=== PATIENT | male | born 1945 | race Caucasian/White ===

== ENCOUNTER 2018-02-14 07:52 | Day surgery (SDC) | payer MEDICARE ==
[2018-02-14] VITALS (14 sets, daily range): BP systolic 105–161; BP diastolic 54–91
[~2018-02-14] VITALS: Ht 177.8 cm; Wt 112.2 kg
[~2018-02-14 07:52] MED LIST: AMLO10TA82 PO; AMLO5TAB2 PO; ASP81TEC PO; CHOL200035 PO; CITA40TA19 PO; DESI25TA13 PO; FINA5TAB6 PO; FLAX1CAP4 PO; FOLI0.4T2 PO; FOLIC ACID PO; GMFB600T PO; HUM100VI12 SQ; INSU100V13 SQ; ISM30TCR PO; LISI40TA PO; METO25TA PO; MULT1CAP27 PO; NIA500ERT PO; NPH,100V SQ; OMG1KC PO; PRAS10TA6 PO; ROSU10TA12 PO
--- OUTSIDE RECORDS SUMMARY | 2018-02-14 07:54 | XMS REPORT | Continuity of Care Document ---
Author Author [facility] Organization [facility] Address Unknown Phone Unavailable Allergies Active Description Code Type Severity Reaction Onset Reported/Identified Relationship to Patient Clinical Status Yes NO KNOWN DRUG ALLERGIES UNKNOWN NO KNOWN DRUG ALLERG Yes No Known Drug Allergies [id number] Drug Allergy Unknown N/A 04/02/2012 Medications There is no data. 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 04/12/2012 Ot 433.10 CAROTID ARTERY OCCLUSION W O CEREBRAL IN 04/12/2012 Ot 794.30 ABN CARDIOVASC STUDY NOS 04/12/2012 Ot V45.81 AORTOCORONARY BYPASS 04/12/2012 Ot V45.82 PERCUTANEOUS TRANSLUM CORON ANGIOPLASTY 04/12/2012 Ot V58.66 LONG-TERM ( CURRENT) USE OF ASPIRIN 04/12/2012 Ot V58.67 LONG-TERM ( CURRENT) USE OF INSULIN 04/12/2012 Ot V58.69 OTH MED,LT, CURRENT USE 09/18/2015 Ot 397.0 TRICUSPID VALVE DISEASE 09/18/2015 Ot 401.9 HYPERTENSION NOS 09/18/2015 Ot 414.00 CORON ATHEROSCLER NOS TYPE VESSEL, NATIV 09/18/2015 Ot 424.0 MITRAL VALVE DISORDER 09/18/2015 Ot 429.3 CARDIOMEGALY 09/18/2015 Ot 272.4 HYPERLIPIDEMIA NEC/NOS 09/18/2015 Ot 401.9 HYPERTENSION NOS 09/18/2015 Ot 414.00 CORON ATHEROSCLER NOS TYPE VESSEL, NATIV 09/18/2015 CHAD WHITE, BASHAR J Ot 278.00 OBESITY, NOS 09/18/2015 MIKE BONILLA MD Ot 397.0 TRICUSPID VALVE DISEASE 09/18/2015 MIKE BONILLA MD Ot 401.9 HYPERTENSION NOS 09/18/2015 MIKE BONILLA MD Ot 414.00 CORON ATHEROSCLER NOS TYPE VESSEL, NATIV 09/18/2015 MIKE BONILLA MD Ot 424.0 MITRAL VALVE DISORDER 09/18/2015 MIKE BONILLA MD Ot 272.4 HYPERLIPIDEMIA NEC/NOS 09/18/2015 MIKE BONILLA MD Ot 278.00 OBESITY, NOS 09/18/2015 MIKE BONILLA MD Ot 401.9 HYPERTENSION NOS 09/18/2015 MIKE BONILLA MD Ot 414.00 CORON ATHEROSCLER NOS TYPE VESSEL, NATIV 09/18/2015 MIKE BONILLA MD Ot 426.4 RT BUNDLE BRANCH BLOCK 09/18/2015 MIKE BONILLA MD Ot V85.37 BODY MASS INDEX 37.0-37.9, ADULT 09/21/2015 TONI GALLARDO Ot I25.10 ATHSCL HEART DISEASE OF [place] CORONARY 10/08/2015 TONI GALLARDO Ot I25.10 ATHSCL HEART DISEASE OF [place] CORONARY 06/28/2017 Hemanth Rojas 401.9 UNSPECIFIED ESSENTIAL HYPERTENSION 06/28/2017 Hemanth Rojas W I10 ESSENTIAL (PRIMARY) HYPERTENSION 06/28/2017 Hemanth Rojas W 401.9 UNSPECIFIED ESSENTIAL HYPERTENSION 06/28/2017 Hemanth Rojas W I10 ESSENTIAL (PRIMARY) HYPERTENSION 09/27/2017 Hemanth Rojas W 401.9 UNSPECIFIED ESSENTIAL HYPERTENSION 09/27/2017 Hemanth Rojas W I10 ESSENTIAL (PRIMARY) HYPERTENSION 09/27/2017 Hemanth Rojas W 401.9 UNSPECIFIED ESSENTIAL HYPERTENSION 09/27/2017 Hemanth Rojas W I10 ESSENTIAL (PRIMARY) HYPERTENSION 09/27/2017 Hemanth Rojas W 401.9 UNSPECIFIED ESSENTIAL HYPERTENSION 09/27/2017 Hemanth Rojas W I10 ESSENTIAL (PRIMARY) HYPERTENSION 09/27/2017 Hemanth Rojas W 401.9 UNSPECIFIED ESSENTIAL HYPERTENSION 09/27/2017 Hemanth Rojas W I10 ESSENTIAL (PRIMARY) HYPERTENSION Procedures There is no data. Results Test Result Range Hemoglobin A1C - 07/06/16 10:01 % A1C 7.80 % 5.40-6.60 AvGlu 202 mg/dL 70-110 Urinalysis - 06/28/17 10:32 Icotest N/A Negative Urine Volume Urine Volume Sufficient (10mL) Urine Yeast No Yeast present Urine-Appearance Clear Clear Urine-Bacteria Negative Urine-Bilirubin Negative Negative Urine-Blood Negative Negative Urine-Color Yellow Colorless-Lt. Yellow Urine-Epithelial Cells 0-5/HPF Urine-Glucose Negative Negative Urine-Ketones Negative Negative Urine-Leukocytes Negative Negative Urine-Mucus 1+ Urine-Nitrite Negative Negative Urine-Other Urine Saved if Culture Needed (48hrs from time of collection) Urine-pH 6.0 5-8.5 Urine-Protein 1+ Negative Urine-RBC Negative Urine-Specific [place] >=1.030 1.000-1.030 Urine-WBC Nothing Seen on Microscopic Urobilinogen 0.2 E.U./dL 0.2-1.0 Lipid Panel - 09/27/17 13:26 C/HDL 4.2 3.7-6.7 Cholesterol 151 mg/dL 100-240 HDL 36 mg/dL 30-85 LDL-Calculated 84 mg/dL 0-100 Trig 153 mg/dL 35-160 VLDL 31 mg/dL 0-42 Encounters ACCT No. Visit Date/Time Discharge Status Pt. Type Provider Facility Loc./Unit Complaint [id number] 09/18/2015 10:42:00 09/18/2015 23:59:59 CLS Outpatient TONI GALLARDO [facility] CARD [id number] 12/09/2013 07:41:00 12/09/2013 23:59:59 CLS Outpatient MIKE BONILLA MD [facility] CARD [id number] 11/27/2013 08:46:00 11/27/2013 23:59:59 CLS Outpatient MIKE BONILLA MD [facility] CARD [id number] 02/14/2018 07:52:00 ACT Outpatient MIKE BONILLA MD [facility] CATH CP,CAD,SOB [id number] 04/11/2012 07:14:00 Document Registration [id number] 04/02/2012 08:03:00 Document Registration [id number] 09/02/2011 09:04:00 Document Registration [id number] 09/27/2017 13:21:00 09/27/2017 23:59:00 DIS Outpatient Hemanth Rojas [id number] 06/28/2017 10:29:00 06/28/2017 23:59:00 DIS Hemanth Hubbard [id number] 07/06/2016 09:41:00 07/06/2016 23:59:00 DIS Hemanth Hubbard [id number] 06/29/2016 00:00:00 06/29/2016 23:59:00 DIS Hemanth Hubbard [id number] 06/23/2016 10:52:00 06/23/2016 23:59:00 RANDI Outpatient Hemanth Rojas
[2018-02-14] MEDS ORDERED: LIDOCAINE 1% INJ 20 ML 20 ML VIAL ONE (07:59)
[2018-02-14] MEDS ORDERED: NS IV 1000 ML 3,000 ML ONE (07:59)
[2018-02-14] MEDS ORDERED: HEParin 1000 UNIT/ML (10ML VIAL) FOR BOLUS ONE (08:03)
[2018-02-14] MEDS ORDERED: NS IV 1000 ML 1,000 ML IV SCH (08:05)
--- NOTE | 2018-02-14 08:27 | Diagnostic Imaging Report ---
INDICATION: Preop for heart catheterization. Patient has a history of CABG. Time of exam 8:15 AM Correlation is made with prior study from 04/11/2012. The heart is enlarged but stable. There are changes of median sternotomy and CABG. The lungs are clear. No infiltrate or failure is detected. No effusion or pneumothorax is detected. IMPRESSION: Status post CABG. No acute cardiopulmonary process is detected. Dictated by: Dictated on workstation # [id number]
[2018-02-14 08:28] LABS: HEMOGLOBIN 14.9 G/DL (13.3-17.7); MEAN PLATELET VOLUME 10.7 FL (7.4-10.4); RED BLOOD COUNT 4.88 10^6/uL (4.35-5.85); RED CELL DISTRIBUTION WIDTH 13.8 % (10.0-14.5); WHITE BLOOD COUNT 12.3 10^3/uL (4.3-11.0)
[2018-02-14] MEDS ORDERED: ASPI-586 PO (08:47)
[2018-02-14] MEDS ORDERED: CHOL5000 PO (08:48)
[2018-02-14] MEDS ORDERED: CITA20TA9 PO (08:49)
[2018-02-14] MEDS ORDERED: FLAX100032 PO ×2 (08:50→08:54)
[2018-02-14 08:53] LABS: ALANINE AMINOTRANSFERASE 15 U/L (0-55); ALKALINE PHOSPHATASE 103 U/L (40-136); BILIRUBIN,TOTAL 0.5 MG/DL (0.1-1.0); BUN/CREATININE RATIO 21; CALCIUM 9.6 MG/DL (8.5-10.1); CARBON DIOXIDE 25 MMOL/L (21-32); CHLORIDE 103 MMOL/L (98-107); CHOLESTEROL 153 MG/DL (< 200); CREATININE SERUM 1.17 MG/DL (0.60-1.30); GFR ESTIMATED > 60; GLUCOSE 126 MG/DL (70-105); HDL CHOLESTEROL 32 MG/DL (40-60); POTASSIUM 4.6 MMOL/L (3.6-5.0); SODIUM 140 MMOL/L (135-145); TOTAL PROTEIN 7.9 GM/DL (6.4-8.2); TRIGLYCERIDES 140 MG/DL (<150); VLDL CHOLESTEROL 28 MG/DL (5-40)
[2018-02-14] MEDS ORDERED: FOLI0.4T2 PO ×2 (08:55)
[2018-02-14] MEDS ORDERED: CINN500C2 PO (08:57)
[2018-02-14] MEDS ORDERED: METO-333 PO (08:58)
[2018-02-14 08:59] LABS: INR 1.1 (0.8-1.4); PROTHROMBIN TIME PATIENT 14.1 SEC (12.2-14.7)
--- NOTE | 2018-02-14 09:11 | Cardiac Procedure Note-CS/ASA ---
Pre-Procedure Note Pre-Op Procedure Note H&P Reviewed The H&P was reviewed, patient examined and no changes noted. Date H&P Reviewed: Feb 14, 2018 Time H&P Reviewed: 09:11 Conscious Sedation Pre-Proced Time Reviewed: 09:11 ASA Class: 3 Airway Mallampati Classification: ([place] appropriate class) I. II. III, IV Lungs Heart ASA score ASA 1: a normal healthy patient ASA 2: a patient with a mild systemic disease (mid diabetes, controlled hypertension, obesity x ASA 3: a patient with a severe systemic disease that limits activity (angina , COPD, prior Myocardial infarction) ASA 4: a patient with an incapacitating disease that is a constant threat to life (CHF, renal failure) ASA 5: a moribund patient not expected to survive 24 hrs. (ruptured aneurysm) ASA 6: a declared brain patient whose organs are being harvested. For emergent operations, add the letter E after the classification Grade 3 Sedation Plan: Analgesia, Amnesia, Plan communicated to team members, Discussed options with patient/fam, Discussed risks with patient/fam Note The patient is an appropriate candidate to undergo the planned procedure, sedation, and anesthesia. The patient immediately re-assessed prior to indication. MIKE BONILLA MD Feb 14, 2018 09:11
[2018-02-14] MEDS ORDERED: fentaNYL INJECTION 100 MCG/2 ML AMP ONE (09:17)
[2018-02-14] MEDS ORDERED: MIDAZOLAM 5 MG/5 ML (VERSED) VIAL ONE (09:17)
[2018-02-14] MEDS ORDERED: NITRO DRIP 25000 MCG/D5W 250 ML IV ONE (09:44)
[2018-02-14] MEDS ORDERED: EPTIFIBATIDE BOLUS 0 ML IV ONE (09:44)
[2018-02-14] MEDS ORDERED: ASPIRIN 325 MG (5 GR) TABLET ONE (10:14)
[2018-02-14] MEDS ORDERED: CLOPIDOGREL 300 MG (PLAVIX) TABLET PO ONE (10:14)
[2018-02-14] MEDS ORDERED: PATIENT MAY USE OWN MEDS, ALL PO SCH (10:15)
--- NOTE | 2018-02-14 10:21 | Cardiac Cath Report ---
Cardiac Cath Report Physician (s)/Plastic Press Molder (s) Physician MIKE BONILLA MD Pre-Procedure Diagnosis Pre-Procedure Diagnosis: Coronary artery disease Post-Procedure Note Procedure Start Date: Feb 14, 2018 Name of Procedure: Left heart catheterization, vein graft angiogram Left ventriculogram Stent to the LAD Findings/Procedure Note PROCEDURE NOTE: After explaining the procedure to the patient, all pros and cons were explained , all questions were answered. The patient signed the consent and then he was placed on the cardiac catheterization laboratory. Groin was prepped SL fashion local anesthesia was used. Sheath placed in the right femoral artery. Gisel right and left catheter were used to access the coronary system and the vein graft. Pigtail was used to access the left ventricular cavity. Left ventriculogram was done Patient was given 6000 units of heparin, I tried with DL guide without success been used FL 4.0 guide advanced the left coronary system, BMW wire was parked in the distal LAD, patient had severe in-stent restenosis, predilatation with balloon with multiple balloons using 3.015 mm then I proceeded with deployment of Xience Luci 2.7515 millimeter postdilated with NC Quantum 3.020 mm up to 3.15 mm with excellent results. At the end of the procedure the sheath was removed. Closure device was used FINDINGS: Hemodynamics LV 148/22, end-diastolic pressure of 22 Aorta 122/63 mean of 84 ANATOMY: Left Main has moderate disease Left Anterior Descending has severe in-stent restenosis, successful balloon angioplasty then deployment of a stent inside the previous stent due to the recurrent recoiling after the balloon angioplasty, I used Xience Luci 2.7520 mm expanded to 3.15 mm inside the old stent with excellent results, moderate disease distally Left Circumflex is moderate in size with mild disease nonobstructive disease Right Coronory Artery is occluded and the vein graft to the right coronary artery is occluded getting collaterals from the left system Patient is known to have occluded OKEEFE and vein graft to the marginal LV Gram was done in the right anterior oblique position left buttock is normal in size with normal contraction. Estimated ejection fraction 60 percent CONCLUSION: 1. Severe in-stent restenosis in the mid LAD, significant recoiling after balloon angioplasty, successful deployment of a new stent of Luci 2.7515 mm expanded to 3.15 mm with excellent results 2. Mild to moderate disease in the circumflex artery 3. Occluded right coronary artery and the vein graft to the right coronary artery receiving collaterals from the left system 4. Normal left ventricle size and systolic function estimated ejection fraction 60 percent DISCUSSION AND RECOMMENDATION: 1. Maximize medical therapy 2. Weight loss and exercise is recommended 3. Cardiac rehabilitation Anesthesia Type: Conscious Sedation Estimated blood loss (mL): 10 ml Contrast Amount: 150 ml Total Radiation Dose: 1361mGy Post-Procedure Diagnosis Post-operative diagnosis: Chest pain nonspecific etiology Coronary artery disease Hypertension Hyperlipidemia MIKE BONILLA MD Feb 14, 2018 10:21
[2018-02-14] MEDS ORDERED: ONDANSETRON 4 MG/2 ML (SDV) Z0FRAN ONE (10:50)
[2018-02-14] MEDS: NS IV 1000 ML 1,000 ML IV SCH ×2 (10:51→18:09)
[2018-02-14] MEDS ORDERED: ONDANSETRON 4 MG/2 ML (SDV) Z0FRAN IVP ONE (11:00)
[2018-02-14] MEDS ORDERED: PANTOPRAZOLE 40 MG (PROTONIX) TAB PO ONE (11:00)
[2018-02-14] MEDS ORDERED: ANTACID SUSP 30 ML UDC (MYLANTA) PO ONE (11:00)
[2018-02-14] MEDS ORDERED: NITROGLYCERIN 0.4 MG SL TABS BTL 25'S SL PRN (13:30)
[2018-02-14] MEDS ORDERED: FLAXSEED OIL PO SCH (21:00)
[2018-02-14] MEDS ORDERED: GEMFIBROZIL 600 MG (LOPID) TAB PO SCH (21:00)
[2018-02-14] MEDS ORDERED: meTOprolol TARTRATE 25 MG (LOPRESSOR) TABLET PO SCH (21:00)
[2018-02-15 00:10] VITALS: BP 145/67
[2018-02-15 04:00] VITALS: BP 130/43
[2018-02-15 05:55] LABS: HEMOGLOBIN 13.2 G/DL (13.3-17.7); MEAN PLATELET VOLUME 10.6 FL (7.4-10.4); RED BLOOD COUNT 4.36 10^6/uL (4.35-5.85); RED CELL DISTRIBUTION WIDTH 13.8 % (10.0-14.5); WHITE BLOOD COUNT 8.8 10^3/uL (4.3-11.0)
[2018-02-15 06:13] LABS: BUN/CREATININE RATIO 20; CALCIUM 8.8 MG/DL (8.5-10.1); CARBON DIOXIDE 24 MMOL/L (21-32); CHLORIDE 106 MMOL/L (98-107); CREATININE SERUM 0.92 MG/DL (0.60-1.30); GFR ESTIMATED > 60; GLUCOSE 149 MG/DL (70-105); SODIUM 140 MMOL/L (135-145)
[2018-02-15 07:00] VITALS: BP 139/101
--- NOTE | 2018-02-15 07:49 | Cardiology Progress Note ---
Subjective Date Seen by Provider: Feb 15, 2018 Time Seen by Provider: 07:48 Subjective/Events-last exam Patient is laying down in bed, feeling well. Denied any chest pain. No palpitation. No syncope. Review of Systems General: No Chills, No Night Sweats, No Fatigue, No Malaise, No Appetite, No Other HEENT: No Head Aches, No Visual Changes, No Eye Pain, No Ear Pain, No Dysphasia , No Sinus Congestion, No Post Nasal Drip, No Sore Throat, No Other Pulmonary: No Dyspnea, No Cough, No Pleuritic Chest Pain, No Other Cardiovascular: No: Chest Pain, Palpitations, Orthopnea, Paroxysmal Noc. Dyspnea, Edema, Lt Headedness, Other Objective-Cardiology Exam Last Set of Vital Signs Vital Signs 02/15/18 04:00 Temp 97.8 Pulse 77 Resp 13 B/P (MAP) 130/43 (72) Pulse Ox 90 O2 Delivery Nasal Cannula O2 Flow Rate 1.00 Capillary Refill : I&O Intake and Output 02/15/18 00:00 Intake Total 1872 ml Output Total 700 ml Balance 1172 ml Intake Oral 872 ml IV Total 1000 ml Output Urine Total 700 ml # Voids 1 General: Alert, Oriented X3, Cooperative HEENT: Atraumatic, PERRLA Neck: Supple, No JVD, No Thyromegaly Lungs: Clear to Auscultation, Normal Air Movement Heart: Regular Rate, Normal S1, Normal S2, No Murmurs Abdomen: Normal Bowel Sounds, Soft, No Tenderness, No Hepatosplenomegaly, No Masses Extremities: No Clubbing, No Cyanosis, No Edema, Normal Pulses, No Tenderness/ Swelling Skin: No Rashes, No Breakdown, No Significant Lesion Neuro: Normal Gait, Normal Speech, Strength at 5/5 X4 Ext, Normal Tone, Sensation Intact Psych/Mental Status: Mental Status NL, Mood NL Results Lab Laboratory Tests 02/14/18 08:20 02/15/18 05:30 A/P-Cardiology Admission Diagnosis Coronary artery disease Chest pain Hypertension Hyperlipidemia Assessment/Plan Coronary artery disease status post stenting to the LAD Chest pain, reporting or could not Hypertension, continue on current medications Hyperlipidemia, continue on current medication COPD, obstructive sleep apnea MIKE BONILLA MD Feb 15, 2018 07:49
[2018-02-15] MEDS ORDERED: CLOP75TA28 PO (07:50)
--- NOTE | 2018-02-15 07:50 | Discharge Inst-Post CATH ---
Discharge Inst-CATH Post Cardiac Cath D/C Inst Follow Up/Plan Appointment with Dr. Mitchell's office in 2-4 weeks CARDIAC CATH DISCHARGE INSTRUCTIONS *Hold Metformin for 48 hours post heart cath. ACTIVITY * Go Home directly and rest. * Limit activity of the leg (or wrist if it was used) for 7 days including aerobics, swimming, jogging, bicycling, etc. * Restrict stair-climbing for 7 days if possible, if not, climb up with your non -cath leg, then bring together on the same step. * Avoid lifting, pushing, pulling or excessive movement of the affected extremity for 7 days. * Customary sexual activity may be resumed after 2 days-use caution not to use a position that strains or causes pain to the affected extremity. * No driving for 24 hours. * NO SMOKING. * Avoid straining for bowel movements for 7 days. * Gentle walking on level ground is allowed. * Returning to work will depend on the type of procedure and the results. Your doctor will discuss this with you. CALL YOUR DOCTOR FOR ANY OF THE FOLLOWING: *If bleeding from the puncture site occurs- Apply gentle pressure to site with clean cloth and call your doctor or EMS. * If a knot or lump forms under the skin, increases in size, or causes pain. * If bruising appears to be worsening or moving further down your leg instead of disappearing. * Temperature above 101 F. CARE OF YOUR GROIN INCISION; * Bruising or purple discoloration of the skin near the puncture site is common. * You may shower only, no bathtub bathing for 5 days. Be careful to avoid slipping as your leg may feel stiff. * If a closure device was used on your femoral artery, please see the attached guide regarding care of the device and your leg. * REMOVE the dressing from your groin the next day after your procedure in the shower. CARE OF YOUR WRIST INCISION; * Bruising or purple discoloration of the skin near the puncture site is common. * You may shower. * DO NOT submerge wrist. * Remove dressing in 24 hours. MIKE MITCHELL MD Feb 15, 2018 07:50
[2018-02-15] MEDS ORDERED: CLOP75TA69 PO (07:55)
[2018-02-15 08:00] VITALS: BP 154/91
[2018-02-15] MEDS ORDERED: ASPIRIN 81 MG CHEW (CHILDREN'S ASA) PO SCH (09:00)
[2018-02-15] MEDS ORDERED: amLODIPine 5 MG (NORVASC) TAB PO SCH (09:00)
[2018-02-15] MEDS ORDERED: lisINopril 20 MG (PRINIVIL) TABLET PO SCH (09:00)
[2018-02-15] MEDS ORDERED: ROSUVASTATIN 10 MG (CRESTOR) TABLET PO SCH (09:00)
[2018-02-15] MEDS ORDERED: DESIPRAMINE 25 MG PO SCH (09:00)
[2018-02-15] MEDS ORDERED: FINASTERIDE (PROSCAR) 5 MG TAB PO SCH (09:00)
[2018-02-15] MEDS ORDERED: ISOSORBIDE MONONITRATE 30 MG (IMDUR) TAB PO SCH (09:00)
[2018-02-15] MEDS ORDERED: FOLIC ACID 1 MG TAB PO SCH (09:00)
[2018-02-15] MEDS ORDERED: CLOPIDOGREL 75 MG (PLAVIX) TABLET PO SCH (09:00)
[2018-02-15 09:15] VITALS: BP 127/0
== END 2018-02-15 09:30 | disposition home or self-care (01) ==
LOC: CATH 07:52 → ICU 10:35 → CATH 02-15 09:30
PROVIDERS: ATTEND Internal Medicine Cardiovascular Disease
DX: R07.9 Chest pain, unspecified (principal); I25.10 Atherosclerotic heart disease of native coronary artery without angina pectoris; I10 Essential (primary) hypertension; E78.5 Hyperlipidemia, unspecified; Z11.2 Encounter for screening for other bacterial diseases; E11.40 Type 2 diabetes mellitus with diabetic neuropathy, unspecified; I65.29 Occlusion and stenosis of unspecified carotid artery; Z79.899 Other long term (current) drug therapy; Z79.4 Long term (current) use of insulin; Z79.82 Long term (current) use of aspirin; Z95.1 Presence of aortocoronary bypass graft; E66.9 Obesity, unspecified; Z68.36 Body mass index [BMI] 36.0-36.9, adult
CPT/HCPCS: 36415; 71045; 80048; 80053; 80061; 82962; 85027; 85610; 85730; 87081; 93005; 93459

== ENCOUNTER → 2019-04-16 | Outpatient (CLI) | payer MEDICARE ==
[~2019-04-16] MED LIST changes: +ASPI-586 PO; +CHOL5000 PO; +CINN500C2 PO; +CITA20TA9 PO; +CLOP75TA28 PO; +CLOP75TA69 PO; +FLAX100032 PO; +METO-333 PO
== END ==
LOC: CARD 11:53
PROVIDERS: ATTEND Internal Medicine Cardiovascular Disease
DX: I35.0 Nonrheumatic aortic (valve) stenosis (principal); E78.5 Hyperlipidemia, unspecified; I11.9 Hypertensive heart disease without heart failure; I65.29 Occlusion and stenosis of unspecified carotid artery; I25.10 Atherosclerotic heart disease of native coronary artery without angina pectoris
CPT/HCPCS: 93306

== ENCOUNTER → 2019-04-17 | Outpatient (CLI) | payer MEDICARE ==
[~2019-04-17] VITALS: Ht 175 cm; Wt 114.0 kg
[~2019-04-17] MED LIST changes: +REGADENOSON 0.4 MG/5 ML SYR (LEXISCAN) IV ONE
[2019-04-17] MEDS: CATHETER FLUSH 10 ML SYR IV PRN ×3 (08:46→10:07)
[2019-04-17 10:06] VITALS: BP 153/79
--- NOTE | 2019-04-17 15:48 | STRESS TEST ---
DATE OF SERVICE: 04/17/2019 LEXISCAN MYOVIEW STRESS TEST REPORT REFERRING PHYSICIAN: Hemanth Rojas DO Baseline heart rate is 85. Baseline blood pressure 153/79. Baseline EKG is sinus rhythm with right bundle-branch block. In summary, the patient was injected with 10.43 mCi of technetium-99 Myoview and the resting images were obtained. Then, the patient received 0.4 mg of Lexiscan followed by 27.1 mCi of technetium-99 Myoview. Throughout the test, there were no EKG changes. The resting and stress images were reviewed and compared in the short axis, horizontal long axis, and vertical long axis views. Review of the images showed diaphragmatic attenuation with reversible ischemia involving the true apex, anteroapical and inferoapical segment. SSS is 8, SDS 7. Transient ischemic dilatation with TID value 1.21. On the gated images, there is mild diffuse left ventricular hypokinesia, calculated ejection fraction 45%. CONCLUSION: 1. The patient tolerated Lexiscan well. 2. Right bundle-branch block persisted throughout test. 3. Reversible ischemia involving the true apex, anteroapical and inferoapical segments. 4. Transient ischemic dilatation with TID value 1.21. Diffuse left ventricular hypokinesia with calculated ejection fraction 45%. Job ID: [id number] DocumentID: [id number] Dictated Date: 04/17/2019 15:41:15 Recycling Manager Date: 04/17/2019 15:47:14 Dictated By: MIKE BONILLA MD
== END ==
LOC: CARD 07:52
PROVIDERS: ATTEND Internal Medicine Cardiovascular Disease
DX: I45.10 Unspecified right bundle-branch block (principal); G93.89 Other specified disorders of brain; I51.89 Other ill-defined heart diseases; E78.5 Hyperlipidemia, unspecified; I11.9 Hypertensive heart disease without heart failure; I65.29 Occlusion and stenosis of unspecified carotid artery; I25.10 Atherosclerotic heart disease of native coronary artery without angina pectoris
CPT/HCPCS: 78452; 93017

== ENCOUNTER 2019-05-08 08:08 | Day surgery (SDC) | payer MEDICARE ==
[2019-05-08] VITALS (12 sets, daily range): BP systolic 144–208; BP diastolic 70–97
[~2019-05-08] VITALS: Ht 175 cm; Wt 114.0 kg
[~2019-05-08 08:08] MED LIST changes: -REGADENOSON 0.4 MG/5 ML SYR (LEXISCAN) IV ONE
[2019-05-08] MEDS ORDERED: LIDOCAINE 1% INJ 20 ML 20 ML VIAL ONE (08:14)
[2019-05-08] MEDS ORDERED: HEParin (CATH LAB) 2,000 ML IV ONE (08:14)
[2019-05-08] MEDS ORDERED: NS IV 1000 ML 1,000 ML ONE (08:14)
[2019-05-08] MEDS ORDERED: NS IV 1000 ML 1,000 ML IV SCH (08:15)
[2019-05-08 08:43] LABS: HEMOGLOBIN 14.6 G/DL (13.3-17.7); MEAN PLATELET VOLUME 10.7 FL (7.4-10.4); RED CELL DISTRIBUTION WIDTH 13.6 % (10.0-14.5); WHITE BLOOD COUNT 12.1 10^3/uL (4.3-11.0)
[2019-05-08 08:43] LABS: BILIRUBIN,URINE NEGATIVE (NEGATIVE); CLARITY,URINE CLEAR; COLOR,URINE YELLOW; GLUCOSE, URINE (UA) NEGATIVE (NEGATIVE); KETONES,URINE NEGATIVE (NEGATIVE); LEUKOCYTE ESTERASE ,URINE NEGATIVE (NEGATIVE); NITRITE,URINE NEGATIVE (NEGATIVE); PROTEIN,URINE NEGATIVE (NEGATIVE)
--- NOTE | 2019-05-08 08:43 | Diagnostic Imaging Report ---
INDICATION: Abnormal stress test, coronary artery disease, precatheterization Frontal chest obtained at 0831 a.m. and compared to 02/14/2018. There is poststernotomy change in cardiomegaly. There is no focal infiltrate or pneumothorax or pleural fluid. IMPRESSION: Cardiomegaly and poststernotomy change. No focal infiltrate or pneumothorax or pleural fluid. Dictated by: Dictated on workstation # [id number]
[2019-05-08 08:55] LABS: BACTERIA,URINE TRACE /HPF; WBC,URINE 0-2 /HPF
[2019-05-08] MEDS ORDERED: GEMF600T8 PO (08:55)
[2019-05-08] MEDS ORDERED: LISI40TA PO (08:55)
[2019-05-08] MEDS ORDERED: DESI25TA13 PO (08:55)
[2019-05-08] MEDS ORDERED: AMLO10TA7 PO (08:55)
[2019-05-08] MEDS ORDERED: ISOS30TA3 PO (08:55)
[2019-05-08] MEDS ORDERED: FINA5TAB6 PO (08:55)
[2019-05-08] MEDS ORDERED: ROSU20TA32 PO (08:55)
[2019-05-08 08:59] LABS: PROTHROMBIN TIME PATIENT 13.4 SEC (12.2-14.7)
[2019-05-08 09:03] LABS: ALBUMIN 4.3 GM/DL (3.2-4.5); BILIRUBIN,TOTAL 0.5 MG/DL (0.1-1.0); CALCIUM 9.7 MG/DL (8.5-10.1); CREATININE SERUM 1.21 MG/DL (0.60-1.30); TOTAL PROTEIN 7.7 GM/DL (6.4-8.2)
[2019-05-08] MEDS ORDERED: HUM100VI15 SQ (09:43)
[2019-05-08] MEDS ORDERED: INSA70301U SQ (09:43)
[2019-05-08] MEDS ORDERED: MULT1TAB69 PO (09:43)
[2019-05-08] MEDS ORDERED: fentaNYL INJECTION 100 MCG/2 ML AMP ONE (10:07)
[2019-05-08] MEDS ORDERED: MIDAZOLAM 5 MG/5 ML (VERSED) VIAL ONE (10:07)
[2019-05-08] MEDS ORDERED: HEParin 1000 UNIT/ML (10ML VIAL) FOR BOLUS ONE (10:32)
[2019-05-08] MEDS ORDERED: NITRO DRIP 25000 MCG/D5W 250 ML IV ONE (10:35)
--- NOTE | 2019-05-08 10:46 | Cardiac Procedure Note-CS/ASA ---
Pre-Procedure Note Pre-Op Procedure Note H&P Reviewed The H&P was reviewed, patient examined and no changes noted. Date H&P Reviewed: May 08, 2019 Time H&P Reviewed: 09:00 Conscious Sedation Pre-Proced Time 09:00 ASA Score 3 For ASA 3 and 4: Consider anesthesia and medical clearance. Also, for patients with a history of failed moderate sedation consider anesthesia. Airway Lungs Heart ASA score ASA 1: a normal healthy patient ASA 2: a patient with a mild systemic disease (mid diabetes, controlled hypertension, obesity x ASA 3: a patient with a severe systemic disease that limits activity (angina, COPD, prior Myocardial infarction) ASA 4: a patient with an incapacitating disease that is a constant threat to life (CHF, renal failure) ASA 5: a moribund patient not expected to survive 24 hrs. (ruptured aneurysm) ASA 6: a declared brain- patient whose organs are being harvested. For emergent operations, add the letter E after the classification Mallampati Classification Grade 3 Sedation Plan Analgesia, Amnesia, Plan communicated to team members, Discussed options with patient/fam, Discussed risks with patient/fam The patient is an appropriate candidate to undergo the planned procedure, sedation, and anesthesia. The patient immediately re-assessed prior to indication. MIKE BONILLA MD May 08, 2019 10:46 POS
[2019-05-08] MEDS ORDERED: ASPIRIN 325 MG (5 GR) TABLET ONE (10:51)
[2019-05-08] MEDS ORDERED: DESI50TA PO (10:51)
[2019-05-08] MEDS ORDERED: TICAGRELOR 90 MG TABLET (BRILINTA) PO ONE (10:51)
[2019-05-08] MEDS ORDERED: PATIENT MAY USE OWN MEDS, ALL PO SCH (11:00)
--- NOTE | 2019-05-08 11:02 | NUR ---
SPOKE WITH THE PT (HE HAD A MED LIST) WELL TALKING WITH [facility] TO COM[facility]TE [facility]. PT WAS ABLE TO TELL ME HOW/WHEN HE TAKES EACH MEDICATION. THE ONLY DOSE THAT DOES NOT MATCH THE [facility] RECORDS IS AMLODIPINE 10MG- PT SAYS HE TAKES 1 TAB DAILY, HOWEVER THE [facility] HAS " 1/2 TAB DAILY" ALL OTHER MEDICATIONS MATCH WITH THE [facility] MAIL ORDER DIRECTIONS/ THE FOLLOWING ARE FILL DATES: 03-12-2019 FINASTERIDE #90/90DS 03-12-2019 NOVOLOG 90DS 03-13-2019 METOPROLOL #90/90DS 03-24-2019 ROSUVASTATIN #45/90DS 03-24-2019 ISOSORBIDE #90/90DS 04-04-2019 LISINOPRIL #90/90DS 04-05-2019 CITALOPRAM #90/90DS 04-23-2019 DESIPRAMINE #90/90DS (PT MED LIST SAYS 25MG- HOWEVER THIS A RECENT RX AND NOW TAKES 50MG, I ASKED THE PT ABOUT THIS AND HE INDICATES THAT THE NEW LIST MAY NOT BE UPDATES) 04-23-2019 GEMFIBROZIL #180/90DS 04-25-2019 AMLODIPINE #45 (SEE ABOVE NOTE FOR DAY SUPPLY) OTC MEDS: MTV ASPIRIN CINNAMON FLAXSEED VIT D FOLIC ACID
--- NOTE | 2019-05-08 11:05 | NUR ---
PT ARRIVED FROM INSURANCE PROCESSING CLERK. RIGHT GROIN SITE SOFT, NONTENDER AND BENIGN. PT HAS NO COMPLAINTS. RESTING WITH EYES CLOSED. SNORES LOUDLY WHEN ASLEEP. OXYGEN SATS 90% ON ROOM AIR, 2 LPM VIA NC PLACED WITH SATS TO 96%. PT EDUCATED REGARDING POST CATH INSTRUCTIONS AND BEDREST. IS IN THE ROOM. PT VERBALIZES UNDERSTANDING. CALL LIGHT WITHIN REACH AND BED IN LOW POSITION.
--- NOTE | 2019-05-08 11:06 | Cardiac Cath Report ---
Cardiac Cath Report Physician (s)/Guard Immigration (s) Physician MIKE BONILLA MD Pre-Procedure Diagnosis Pre-Procedure Diagnosis: Coronary artery disease Post-Procedure Note Procedure Start Date: May 08, 2019 Name of Procedure: Left heart catheterization PTCA to LAD Findings/Procedure Note PROCEDURE NOTE: 74-year-old gentleman with history of coronary artery disease, CABG, multiple intervention, has been having chest pain, had an abnormal stress test, scheduled for cardiac catheterization possible PTCA. After explaining the procedure to the patient, all pros and cons were explained, all questions were answered. The patient signed the consent and then he was placed on the cardiac catheterization laboratory. Groin was prepped SL fashion local anesthesia was used. Sheath placed in the right femoral artery. Gisel right and left catheter were used to access the coronary system. Pigtail was used to access the left ventricular cavity. Left ventriculogram was not done, pressure was measured, I did not evaluate the vein graft or the OKEEFE, they are known to be occluded. Previous cardiac catheterization. Patient was given 5000 units of heparin, FL guide was advanced and left carotid system, BMW wire was advanced to the LAD, there was severe stenosis within the stent in the mid LAD, multiple inflation with commercial 3 x 20 mm balloon were done up to 10 lisa which expanded the balloon to 3.2 mm, angiogram showed excellent results At the end of the procedure the sheath was removed. Closure device was used FINDINGS: Hemodynamics please see separate sheet for pressure ANATOMY: Left Main has mild disease Left Anterior Descending has 2 stents in the midportion overlapping stent with severe in-stent restenosis successful balloon and to plasty using Emerge 3 x 20 mm balloon with multiple inflation up to 10 lisa with excellent results, moderate disease in the distal LAD Left Circumflex has mxxs-dy-gaxviazf disease nonobstructive Right Coronory Artery is totally occluded receiving collaterals from the left LV Gram was not done, pressure was measured Patient is known to have occluded OKEEFE to LAD and vein graft 2 CONCLUSION: 1. Severe in-stent restenosis in the mid LAD with successful balloon angioplasty using emerge 3 x 20 mm balloon with excellent results. 2. Mild to moderate disease in the circumflex artery 3. 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 Mildly elevated left ventricular end-diastolic pressure of 20 5. Known occluded OKEEFE and 2 vein grafts DISCUSSION AND RECOMMENDATION: continue to maximize medical therapy. Started on aspirin and Brilinta Anesthesia Type: Conscious Sedation Estimated blood loss (mL): 15 ml Contrast Amount: 80 ml Total Radiation Dose: 866 mGy Post-Procedure Diagnosis Post-operative diagnosis: Chest pain Coronary artery disease Hypertension Hyperlipidemia Diabetes mellitus MIKE BONILLA MD May 08, 2019 11:06 POS
[2019-05-08] MEDS ORDERED: amLODIPine 10 MG (NORVASC) TAB PO ONE ×2 (13:15→22:00)
[2019-05-08] MEDS ORDERED: lisINopril 20 MG (PRINIVIL) TABLET PO ONE ×2 (13:15→22:00)
[2019-05-08] MEDS ORDERED: meTOprolol TARTRATE 25 MG (LOPRESSOR) TABLET PO ONE (13:15)
--- NOTE | 2019-05-08 15:13 | NUR ---
ASSUMED PT CARE -- REPORT FROM ACQUISITIONS EDITOR
[2019-05-08] MEDS: NS IV 1000 ML 1,000 ML IV SCH (16:28)
[2019-05-08] MEDS ORDERED: inSUlin ASPART/PROTA (NovoLOG 70/30) CHARGE PER UNIT SQ SCH (18:00)
[2019-05-08] MEDS: meTOprolol TARTRATE 25 MG (LOPRESSOR) TABLET PO SCH (20:33)
[2019-05-08] MEDS ORDERED: TICAGRELOR 90 MG TABLET (BRILINTA) PO SCH (21:00)
[2019-05-08] MEDS ORDERED: GEMFIBROZIL 600 MG (LOPID) TAB PO SCH (21:00)
[2019-05-08] MEDS ORDERED: NON-FORMULARY MEDICATION 1 EA EA (Aspirin (Aspir 81) 81 MG) PO SCH (21:00)
[2019-05-08] MEDS ORDERED: NON-FORMULARY MEDICATION 1 EA EA (Gemfibrozil 600 MG) PO SCH (21:00)
[2019-05-09] MEDS: NS IV 1000 ML 1,000 ML IV SCH ×2 (00:19→07:12)
[2019-05-09 00:41] VITALS: BP 188/86
[2019-05-09 04:15] LABS: HEMOGLOBIN 14.5 G/DL (13.3-17.7); MEAN PLATELET VOLUME 10.6 FL (7.4-10.4); RED CELL DISTRIBUTION WIDTH 13.6 % (10.0-14.5); WHITE BLOOD COUNT 12.6 10^3/uL (4.3-11.0)
[2019-05-09 04:21] LABS: BUN/CREATININE RATIO 19; CALCIUM 9.4 MG/DL (8.5-10.1); CARBON DIOXIDE 24 MMOL/L (21-32); CHLORIDE 105 MMOL/L (98-107); CREATININE SERUM 1.01 MG/DL (0.60-1.30); GFR ESTIMATED > 60; GLUCOSE 133 MG/DL (70-105); POTASSIUM 3.6 MMOL/L (3.6-5.0); SODIUM 141 MMOL/L (135-145)
[2019-05-09 04:47] VITALS: BP 208/88
[2019-05-09 05:05] VITALS: BP 187/82
[2019-05-09] MEDS ORDERED: inSUlin NPH/REG (NovoLIN 70/30) CHARGE PER UNIT SQ SCH (07:00)
[2019-05-09] MEDS ORDERED: MULTIVIT W/MINERALS TAB (THERAGRAN M) PO SCH (07:00)
--- NOTE | 2019-05-09 07:17 | Cardiology Progress Note ---
Subjective Date Seen by Provider: May 09, 2019 Time Seen by Provider: 07:15 Subjective/Events-last exam Patient is laying down in bed, denied any chest pain, reported some chest discomfort overnight. Having difficulty achieving adequate blood pressure control. Groin is healing well Review of Systems General: No Chills, No Night Sweats, No Fatigue, No Malaise, No Appetite, No Other HEENT: No Head Aches, No Visual Changes, No Eye Pain, No Ear Pain, No Dysphasia, No Sinus Congestion, No Post Nasal Drip, No Sore Throat, No Other Pulmonary: No Dyspnea, No Cough, No Pleuritic Chest Pain, No Other Cardiovascular: No: Chest Pain, Palpitations, Orthopnea, Paroxysmal Noc. Dyspnea, Edema, Lt Headedness, Other Objective-Cardiology Exam Last Set of Vital Signs Vital Signs 05/08/19 05/09/19 05/09/19 15:00 04:47 05:05 Temp 37.0 Pulse 82 Resp 20 B/P (MAP) 187/82 (117) Pulse Ox 95 O2 Delivery Room Air O2 Flow Rate 2.00 Capillary Refill : Less Than 3 Seconds I&O Intake and Output 05/09/19 00:00 Daily Weight Change No General: Alert, Oriented X3, Cooperative HEENT: Atraumatic, PERRLA Neck: Supple, No JVD, No Thyromegaly Lungs: Clear to Auscultation, Normal Air Movement Heart: Regular Rate, Normal S1, Normal S2, No Murmurs Abdomen: Normal Bowel Sounds, Soft, No Tenderness, No Hepatosplenomegaly, No Masses Extremities: No Clubbing, No Cyanosis, No Edema, Normal Pulses, No Tenderness/Swelling Skin: No Rashes, No Breakdown, No Significant Lesion Neuro: Normal Gait, Normal Speech, Strength at 5/5 X4 Ext, Normal Tone, Sensation Intact Psych/Mental Status: Mental Status NL, Mood NL Results Lab Laboratory Tests 05/08/19 08:33 05/09/19 03:55 A/P-Cardiology Admission Diagnosis Chest pain Coronary artery disease Hypertension Hyperlipidemia Assessment/Plan Chest pain, chronic angina, I will give him additional dose of Imdur now and monitor tolerance and response, evaluate EKG Coronary artery disease, multiple intervention the past, cardiac catheterization showed severe instent restenosis in the proximal LAD successful balloon angiopl asty, has disease in the mid to distal LAD, findings described below 1. Severe in-stent restenosis in the mid LAD with successful balloon angioplasty using emerge 3 x 20 mm balloon with excellent results. 2. Mild to moderate disease in the circumflex artery 3. 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 Mildly elevated left ventricular end-diastolic pressure of 20 5. Known occluded OKEEFE and 2 vein grafts Severe hypertension, labile blood pressure, I will give him his morning Imdur, lisinopril and Lopressor and evaluate tolerance and response Hyperlipidemia, monitor lipids MIKE BONILLA MD May 09, 2019 07:17 POS
[2019-05-09] MEDS: meTOprolol TARTRATE 25 MG (LOPRESSOR) TABLET PO SCH (07:25)
[2019-05-09 08:00] VITALS: BP 167/76
[2019-05-09] MEDS ORDERED: TICA90TA PO (08:07)
--- NOTE | 2019-05-09 08:07 | Discharge Inst-Post CATH ---
Discharge Inst-CATH/EP Problems Reviewed?: Yes Post Cardiac Cath/EP D/C Inst Follow Up/Plan Appointment with Dr. BONILLA's office in one to 2 weeks <b>CARDIAC CATH/EP PROCEDURE DISCHARGE INSTRUCTIONS</b> ACTIVITY * Go Home directly and rest. * Limit activity of the leg (or wrist if it was used) for 7 days including aerobics, swimming, jogging, bicycling, etc. * Restrict stair-climbing for 7 days if possible, if not, climb up with your non-cath leg, then bring together on the same step. * Avoid lifting, pushing, pulling or excessive movement of the affected extremity for 7 days. * Customary sexual activity may be resumed after 2 days-use caution not to use a position that strains or causes pain to the affected extremity. * No driving for 24 hours. * NO SMOKING. * Avoid straining for bowel movements for 7 days. * Gentle walking on level ground is allowed. * Returning to work will depend on the type of procedure and the results. Your doctor will discuss this with you. CALL YOUR DOCTOR FOR ANY OF THE FOLLOWING: *If bleeding from the puncture site occurs- Apply gentle pressure to site with clean cloth and call your doctor or EMS. * If a knot or lump forms under the skin, increases in size, or causes pain. * If bruising appears to be worsening or moving further down your leg instead of disappearing. * Temperature above 101 F. CARE OF YOUR GROIN INCISION; * Bruising or purple discoloration of the skin near the puncture site is common. * You may shower only, no bathtub bathing for 5 days. Be careful to avoid slipping as your leg may feel stiff. * If a closure device was used on your femoral artery, please see the attached guide regarding care of the device and your leg. * Leave dressing on FOR 24 hours. CARE OF YOUR WRIST INCISION; * Bruising or purple discoloration of the skin near the puncture site is common. * You may shower. * DO NOT submerge wrist. * Leave dressing on FOR 24 hours. MIKE BONILLA MD May 09, 2019 08:07 POS
[2019-05-09] MEDS ORDERED: ROSUVASTATIN 20 MG (CRESTOR) TABLET PO SCH (09:00)
[2019-05-09] MEDS ORDERED: amLODIPine 10 MG (NORVASC) TAB PO SCH (09:00)
[2019-05-09] MEDS ORDERED: ISOSORBIDE MONONITRATE 30 MG (IMDUR) TAB PO SCH (09:00)
[2019-05-09] MEDS ORDERED: DESIPRAMINE 25 MG PO SCH (09:00)
[2019-05-09] MEDS ORDERED: ASPIRIN E.C. 81 MG (ECOTRIN) TAB PO SCH (09:00)
[2019-05-09] MEDS ORDERED: NON-FORMULARY MEDICATION 1 EA EA (Amlodipine Besylate 10 MG) PO SCH (09:00)
[2019-05-09] MEDS ORDERED: DESIPRAMINE HCL 50 MG PO SCH (09:00)
[2019-05-09] MEDS ORDERED: FINASTERIDE (PROSCAR) 5 MG TAB PO SCH (09:00)
[2019-05-09] MEDS ORDERED: lisINopril 40 MG (PRINIVIL) TABLET PO SCH (09:00)
--- OUTSIDE RECORDS SUMMARY | 2019-06-02 20:35 | XMS REPORT | Continuity of Care Document ---
Author Organization Unknown Address Unknown Phone Unavailable Allergies Active Description Code Type Severity Reaction Onset Reported/Identified Relationship to Patient Clinical Status Yes NO KNOWN DRUG ALLERGIES UNKNOWN NO KNOWN DRUG ALLERG Yes NO KNOWN DRUG ALLERGIES UNKNOWN UNKNOWN Yes No Known Drug Allergies [id number] Drug Allergy Unknown N/A 04/02/2012 Medications There is no data. 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 04/12/2012 Ot 401.9 HYPE RTENSION NOS 04/12/2012 Ot 414.01 COR ONARY ATHEROSCLEROSIS OF [place] CORON 04/12/2012 Ot 414.02 COR ON ATHEROSCLEROSIS AUTOLOG VEIN BYPAS 04/12/2012 Ot 414.2 LINUX SERVER ADMINISTRATOR RETA TOTAL OCCLUSION OF CORONARY [place] 04/12/2012 Ot 433.10 CAR OTID ARTERY OCCLUSION W O CEREBRAL IN 04/12/2012 Ot 794.30 ABN CARDIOVASC STUDY NOS 04/12/2012 Ot V45.81 AOR TOCORONARY BYPASS 04/12/2012 Ot V45.82 PER CUTANEOUS TRANSLUM CORON ANGIOPLASTY 04/12/2012 Ot V58.66 KODY G-TERM (CURRENT) USE OF ASPIRIN 04/12/2012 Ot V58.67 KODY G-TERM (CURRENT) USE OF INSULIN 04/12/2012 Ot V58.69 OTH MED,LT,CURRENT USE 09/18/2015 Ot 397.0 TRIC USPID VALVE DISEASE 09/18/2015 Ot 401.9 HYPE RTENSION NOS 09/18/2015 Ot 414.00 COR ON ATHEROSCLER NOS TYPE VESSEL, NATIV 09/18/2015 Ot 424.0 MITR AL VALVE DISORDER 09/18/2015 Ot 429.3 CARD IOMEGALY 09/18/2015 Ot 272.4 HYPE RLIPIDEMIA NEC/NOS 09/18/2015 Ot 401.9 HYPE RTENSION NOS 09/18/2015 Ot 414.00 COR ON ATHEROSCLER NOS TYPE VESSEL, NATIV 09/18/2015 MIKE BONILLA MD Ot 278. 00 OBESITY, NOS 09/18/2015 MIKE BONILLA MD Ot 397. 0 TRICUSPID VALVE DISEASE 09/18/2015 MIKE BONILLA MD Ot 401. 9 HYPERTENSION NOS 09/18/2015 MIKE BONILLA MD Ot 414. 00 CORON ATHEROSCLER NOS TYPE VESSEL, NATIV 09/18/2015 MIKE BONILLA MD Ot 424. 0 MITRAL VALVE DISORDER 09/18/2015 MIKE BONILLA MD Ot 272. 4 HYPERLIPIDEMIA NEC/NOS 09/18/2015 MIKE BONILLA MD Ot 278. 00 OBESITY, NOS 09/18/2015 MIKE BONILLA MD Ot 401. 9 HYPERTENSION NOS 09/18/2015 MIKE BONILLA MD Ot 414. 00 CORON ATHEROSCLER NOS TYPE VESSEL, NATIV 09/18/2015 MIKE BONILLA MD Ot 426. 4 RT BUNDLE BRANCH BLOCK 09/18/2015 MIKE BONILLA MD Ot V85. 37 BODY MASS INDEX 37.0-37.9, ADULT 09/21/2015 TONI GALLARDO Ot I25.10 ATHSCL HEART DISEASE OF [place] CORONARY 10/08/2015 TONI GALLARDO Ot I25.10 ATHSCL HEART DISEASE OF [place] CORONARY 06/27/2017 W 401.9 UNSP ECIFIED ESSENTIAL HYPERTENSION 06/27/2017 W I10 ESSENT IAL (PRIMARY) HYPERTENSION 06/28/2017 Hemanth Rojas 401.9 UNSPECIFIED ESSENTIAL HYPERTENSION 06/28/2017 Hemanth Rojas I10 ESSENTIAL (PRIMARY) HYPERTENSION 06/28/2017 Hemanth Rojas W 401.9 UNSPECIFIED ESSENTIAL HYPERTENSION 06/28/2017 Hemanth Rojas I10 ESSENTIAL (PRIMARY) HYPERTENSION 09/26/2017 W 401.9 UNSP ECIFIED ESSENTIAL HYPERTENSION 09/26/2017 W I10 ESSENT IAL (PRIMARY) HYPERTENSION 09/27/2017 Hemanth Rojas W 401.9 UNSPECIFIED ESSENTIAL HYPERTENSION 09/27/2017 Hemanth Rojas I10 ESSENTIAL (PRIMARY) HYPERTENSION 09/27/2017 Hemanth Rojas W 401.9 UNSPECIFIED ESSENTIAL HYPERTENSION 09/27/2017 Hemanth Rojas I10 ESSENTIAL (PRIMARY) HYPERTENSION 09/27/2017 Hemanth Rojas W 401.9 UNSPECIFIED ESSENTIAL HYPERTENSION 09/27/2017 Hemanth Rojas W I10 ESSENTIAL (PRIMARY) HYPERTENSION 09/27/2017 Hemanth Rojas W 401.9 UNSPECIFIED ESSENTIAL HYPERTENSION 09/27/2017 Hemanth Rojas W I10 ESSENTIAL (PRIMARY) HYPERTENSION 02/12/2018 MIKE BONILLA MD Ot 278. 00 OBESITY, NOS 02/12/2018 MIKE BONILLA MD Ot 397. 0 TRICUSPID VALVE DISEASE 02/12/2018 MIKE BNOILLA MD Ot 401. 9 HYPERTENSION NOS 02/12/2018 MIKE BONILLA MD Ot 414. 00 CORON ATHEROSCLER NOS TYPE VESSEL, NATIV 02/12/2018 MIKE BONILLA MD Ot 424. 0 MITRAL VALVE DISORDER 02/12/2018 MIKE BONILLA MD Ot 272. 4 HYPERLIPIDEMIA NEC/NOS 02/12/2018 MIKE BONILLA MD Ot 278. 00 OBESITY, NOS 02/12/2018 MIKE BONILLA MD Ot 401. 9 HYPERTENSION NOS 02/12/2018 MIKE BONILLA MD Ot 414. 00 CORON ATHEROSCLER NOS TYPE VESSEL, NATIV 02/12/2018 MIKE BONILLA MD Ot 426. 4 RT BUNDLE BRANCH BLOCK 02/12/2018 MIKE BONILLA MD Ot V85. 37 BODY MASS INDEX 37.0-37.9, ADULT 02/12/2018 TONI GALLARDO Ot I25.10 ATHSCL HEART DISEASE OF [place] CORONARY 02/15/2018 MIKE BONILLA MD Ot E11. 40 TYPE 2 DIABETES MELLITUS WITH DIABETIC N 02/15/2018 MIKE BONILLA MD Ot E66. 9 OBESITY, UNSPECIFIED 02/15/2018 MIKE BONILLA MD Ot E78. 5 HYPERLIPIDEMIA, UNSPECIFIED 02/15/2018 MIKE BONILLA MD Ot I10 ESSENTIAL (PRIMARY) HYPERTENSION 02/15/2018 MIKE BONILLA MD Ot I25. 10 ATHSCL HEART DISEASE OF [place] CORONARY 02/15/2018 MIKE BONILLA MD Ot I65. 29 OCCLUSION AND STENOSIS OF UNSPECIFIED CA 02/15/2018 MIKE BONILLA MD Ot R07. 9 CHEST PAIN, UNSPECIFIED 02/15/2018 MIKE BONILLA MD Ot Z11. 2 ENCOUNTER FOR SCREENING FOR OTHER BACTER 02/15/2018 MIKE BONILLA MD Ot Z68. 36 BODY MASS INDEX (BMI) 36.0-36.9, ADULT 02/15/2018 MIKE BONILLA MD Ot Z79. 4 ASSISTED (CURRENT) USE OF INSULIN 02/15/2018 MIKE BONILLA MD Ot Z79. 82 REINFORCEMENT MAKER (CURRENT) USE OF ASPIRIN 02/15/2018 MIKE BONILLA MD Ot Z79.899 OTHER ASSISTED (CURRENT) DRUG THERAPY 02/15/2018 MIKE BONILLA MD Ot Z95. 1 PRESENCE OF AORTOCORONARY BYPASS GRAFT 02/19/2018 MIKE BONILLA MD Ot E11. 40 TYPE 2 DIABETES MELLITUS WITH DIABETIC N 02/19/2018 MIKE BONILLA MD Ot E66. 9 OBESITY, UNSPECIFIED 02/19/2018 MIKE BONILLA MD Ot E78. 5 HYPERLIPIDEMIA, UNSPECIFIED 02/19/2018 MIKE BONILLA MD Ot I10 ESSENTIAL (PRIMARY) HYPERTENSION 02/19/2018 MIKE BONILLA MD Ot I25. 10 ATHSCL HEART DISEASE OF [place] CORONARY 02/19/2018 MIKE BONILLA MD Ot I65. 29 OCCLUSION AND STENOSIS OF UNSPECIFIED CA 02/19/2018 MIKE BONILLA MD Ot R07. 9 CHEST PAIN, UNSPECIFIED 02/19/2018 MIKE BONILLA MD Ot Z11. 2 ENCOUNTER FOR SCREENING FOR OTHER BACTER 02/19/2018 MIKE BONILLA MD Ot Z68. 36 BODY MASS INDEX (BMI) 36.0-36.9, ADULT 02/19/2018 MIKE BONILLA MD Ot Z79. 4 ASSISTED (CURRENT) USE OF INSULIN 02/19/2018 MIKE BONILLA MD Ot Z79. 82 ASSISTED (CURRENT) USE OF ASPIRIN 02/19/2018 MIKE BONILLA MD Ot Z79.899 OTHER ASSISTED (CURRENT) DRUG THERAPY 02/19/2018 MIKE BONILLA MD Ot Z95. 1 PRESENCE OF AORTOCORONARY BYPASS GRAFT 02/23/2018 MIKE BONILLA MD Ot E11. 40 TYPE 2 DIABETES MELLITUS WITH DIABETIC N 02/23/2018 MIKE BONILLA MD Ot E66. 9 OBESITY, UNSPECIFIED 02/23/2018 MIKE BONILLA MD Ot E78. 5 HYPERLIPIDEMIA, UNSPECIFIED 02/23/2018 MIKE BONILLA MD Ot I10 ESSENTIAL (PRIMARY) HYPERTENSION 02/23/2018 MIKE BONILLA MD Ot I25. 10 ATHSCL HEART DISEASE OF [place] CORONARY 02/23/2018 MIKE BONILLA MD, Ot I65. 29 OCCLUSION AND STENOSIS OF UNSPECIFIED CA 02/23/2018 MIKE BONILLA MD Ot R07. 9 CHEST PAIN, UNSPECIFIED 02/23/2018 MIKE BONILLA MD, Ot Z11. 2 ENCOUNTER FOR SCREENING FOR OTHER BACTER 02/23/2018 MIKE BONILLA MD Ot Z68. 36 BODY MASS INDEX (BMI) 36.0-36.9, ADULT 02/23/2018 MIKE BONILLA MD, Ot Z79. 4 ASSISTED (CURRENT) USE OF INSULIN 02/23/2018 MIKE BONILLA MD Ot Z79. 82 REINFORCEMENT MAKER (CURRENT) USE OF ASPIRIN 02/23/2018 MIKE BONILLA MD, Ot Z79.899 OTHER REINFORCEMENT MAKER (CURRENT) DRUG THERAPY 02/23/2018 MIKE BONILLA MD, Ot Z95. 1 PRESENCE OF AORTOCORONARY BYPASS GRAFT 03/28/2018 Hemanth Rojas W 250.00 DIABETES MELLITUS WITHOUT MENTION OF COMPLICATION, TYPE II OR UNSPECIFIED TYPE, NOT STATED UNCONTROLLED 03/28/2018 Hemanth Rojas E11.9 TYPE 2 DIABETES MELLITUS WITHOUT COMPLICATIONS 03/28/2018 W 250.00 LJ BETES MELLITUS WITHOUT MENTION OF COMPLICATION, TYPE II OR UNSPECIFIED TYPE, NOT STATED UNCONTROLLED 03/28/2018 W E11.9 TYPE 2 DIABETES MELLITUS WITHOUT COMPLICATIONS 03/28/2018 Hemanth Rojas W 250.00 DIABETES MELLITUS WITHOUT MENTION OF COMPLICATION, TYPE II OR UNSPECIFIED TYPE, NOT STATED UNCONTROLLED 03/28/2018 Hemanth Rojas E11.9 TYPE 2 DIABETES MELLITUS WITHOUT COMPLICATIONS 06/26/2018 W 250.00 LJ BETES MELLITUS WITHOUT MENTION OF COMPLICATION, TYPE II OR UNSPECIFIED TYPE, NOT STATED UNCONTROLLED 06/26/2018 W E11.9 TYPE 2 DIABETES MELLITUS WITHOUT COMPLICATIONS 06/27/2018 ROSETTA TAYLOR 250.00 DIABETES MELLITUS WITHOUT MENTION OF COMPLICATION, TYPE II OR UNSPECIFIED TYPE, NOT STATED UNCONTROLLED 06/27/2018 ROSETTA TAYLOR E11.9 TYPE 2 DIABETES MELLITUS WITHOUT COMPLICATIONS 09/11/2018 Mickey Smith W 913.0 ABRASION OR FRICTION BURN OF ELBOW, FOREARM, AND WRIST, WITHOUT MENTION OF INFECTION 09/11/2018 Mickey Smith W S50.812A ABRASION OF LEFT FOREARM, INITIAL ENCOUNTER 09/25/2018 Hemanth Rojas W 250.00 DIABETES MELLITUS WITHOUT MENTION OF COMPLICATION, TYPE II OR UNSPECIFIED TYPE, NOT STATED UNCONTROLLED 09/25/2018 Hemanth Rojas E11.9 TYPE 2 DIABETES MELLITUS WITHOUT COMPLICATIONS 09/25/2018 W 250.00 LJ BETES MELLITUS WITHOUT MENTION OF COMPLICATION, TYPE II OR UNSPECIFIED TYPE, NOT STATED UNCONTROLLED 09/25/2018 W 401.9 UNSP ECIFIED ESSENTIAL HYPERTENSION 09/25/2018 W E11.9 TYPE 2 DIABETES MELLITUS WITHOUT COMPLICATIONS 09/25/2018 W I10 ESSENT IAL (PRIMARY) HYPERTENSION 09/25/2018 Hemanth Rojas 250.00 DIABETES MELLITUS WITHOUT MENTION OF COMPLICATION, TYPE II OR UNSPECIFIED TYPE, NOT STATED UNCONTROLLED 09/25/2018 Hemanth Rojas E11.9 TYPE 2 DIABETES MELLITUS WITHOUT COMPLICATIONS 04/15/2019 MIKE BONILLA MD Ot 278. 00 OBESITY, NOS 04/15/2019 MIKE BONILLA MD Ot 397. 0 TRICUSPID VALVE DISEASE 04/15/2019 MIKE BONILLA MD Ot 401. 9 HYPERTENSION NOS 04/15/2019 MIKE BONILLA MD Ot 414. 00 CORON ATHEROSCLER NOS TYPE VESSEL, NATIV 04/15/2019 MIKE BONILLA MD Ot 424. 0 MITRAL VALVE DISORDER 04/15/2019 MIKE BONILLA MD Ot 272. 4 HYPERLIPIDEMIA NEC/NOS 04/15/2019 MIKE BONILLA MD Ot 278. 00 OBESITY, NOS 04/15/2019 MIKE BONILLA MD Ot 401. 9 HYPERTENSION NOS 04/15/2019 MIKE BONILLA MD Ot 414. 00 CORON ATHEROSCLER NOS TYPE VESSEL, NATIV 04/15/2019 MIKE BONILLA MD Ot 426. 4 RT BUNDLE BRANCH BLOCK 04/15/2019 MIKE BONILLA MD Ot V85. 37 BODY MASS INDEX 37.0-37.9, ADULT 04/15/2019 TONI GALLARDO Ot I25.10 ATHSCL HEART DISEASE OF [place] CORONARY 04/19/2019 MIKE BONILLA MD Ot E78. 5 HYPERLIPIDEMIA, UNSPECIFIED 04/19/2019 MIKE BONILLA MD Ot G93. 89 OTHER SPECIFIED DISORDERS OF BRAIN 04/19/2019 MIKE BONILLA MD Ot I11. 9 HYPERTENSIVE HEART DISEASE WITHOUT HEART 04/19/2019 MIKE BONILLA MD Ot I25. 10 ATHSCL HEART DISEASE OF [place] CORONARY 04/19/2019 MIKE BONILLA MD Ot I45. 10 UNSPECIFIED RIGHT BUNDLE-BRANCH BLOCK 04/19/2019 MIKE OBNILLA MD Ot I51. 89 OTHER ILL-DEFINED HEART DISEASES 04/19/2019 MIKE BONILLA MD Ot I65. 29 OCCLUSION AND STENOSIS OF UNSPECIFIED CA 05/07/2019 MIKE BONILLA MD Ot E78. 5 HYPERLIPIDEMIA, UNSPECIFIED 05/07/2019 MIKE BONILLA MD Ot I11. 9 HYPERTENSIVE HEART DISEASE WITHOUT HEART 05/07/2019 MIKE BONILLA MD Ot I25. 10 ATHSCL HEART DISEASE OF [place] CORONARY 05/07/2019 MIKE BONILLA MD Ot I35. 0 NONRHEUMATIC AORTIC (VALVE) STENOSIS 05/07/2019 MIKE BONILLA MD Ot I65. 29 OCCLUSION AND STENOSIS OF UNSPECIFIED CA 05/09/2019 MIKE BONILLA MD Ot E11. 40 TYPE 2 DIABETES MELLITUS WITH DIABETIC N 05/09/2019 MIKE BONILLA MD Ot E66. 9 OBESITY, UNSPECIFIED 05/09/2019 MIKE BONILLA MD Ot E78. 5 HYPERLIPIDEMIA, UNSPECIFIED 05/09/2019 MIKE BONILLA MD Ot I11. 9 HYPERTENSIVE HEART DISEASE WITHOUT HEART 05/09/2019 MIKE BONILLA MD Ot I25. 10 ATHSCL HEART DISEASE OF [place] CORONARY 05/09/2019 MIKE BONILLA MD Ot I65. 29 OCCLUSION AND STENOSIS OF UNSPECIFIED CA 05/09/2019 MIKE BONILLA MD Ot Z68. 36 BODY MASS INDEX (BMI) 36.0-36.9, ADULT 05/09/2019 MIKE BONILLA MD Ot Z79. 82 ASSISTED (CURRENT) USE OF ASPIRIN 05/09/2019 MIKE BONILLA MD Ot Z79.899 OTHER REINFORCEMENT MAKER (CURRENT) DRUG THERAPY 05/09/2019 MIKE BONILLA MD Ot Z82. 49 FAMILY HX OF ISCHEM HEART DIS AND OTH DI 05/09/2019 MIKE BONILLA MD Ot Z83. 3 FAMILY HISTORY OF DIABETES MELLITUS 05/09/2019 MIKE BONILLA MD Ot Z90. 49 ACQUIRED ABSENCE OF OTHER SPECIFIED PART 05/09/2019 MIKE BONILLA MD Ot Z91. 19 PATIENT'S NONCOMPLIANCE W [facility] MEDICAL TR 05/09/2019 MIKE BONILLA MD Ot Z95. 0 PRESENCE OF CARDIAC PACEMAKER 05/13/2019 MIKE BONILLA MD Ot E11. 40 TYPE 2 DIABETES MELLITUS WITH DIABETIC N 05/13/2019 MIKE BONILLA MD Ot E66. 9 OBESITY, UNSPECIFIED 05/13/2019 MIKE BONILLA MD Ot E78. 5 HYPERLIPIDEMIA, UNSPECIFIED 05/13/2019 MIKE BONILLA MD Ot I11. 9 HYPERTENSIVE HEART DISEASE WITHOUT HEART 05/13/2019 MIKE BONILLA MD Ot I25. 10 ATHSCL HEART DISEASE OF [place] CORONARY 05/13/2019 MIKE BONILLA MD Ot I65. 29 OCCLUSION AND STENOSIS OF UNSPECIFIED CA 05/13/2019 MIKE BONILLA MD Ot Z68. 36 BODY MASS INDEX (BMI) 36.0-36.9, ADULT 05/13/2019 MIKE BONILLA MD Ot Z79. 82 REINFORCEMENT MAKER (CURRENT) USE OF ASPIRIN 05/13/2019 MIKE BONILLA MD Ot Z79.899 OTHER REINFORCEMENT MAKER (CURRENT) DRUG THERAPY 05/13/2019 MIKE BONILLA MD Ot Z82. 49 FAMILY HX OF ISCHEM HEART DIS AND OTH DI 05/13/2019 MIKE BONILLA MD Ot Z83. 3 FAMILY HISTORY OF DIABETES MELLITUS 05/13/2019 MIKE BONILLA MD Ot Z90. 49 ACQUIRED ABSENCE OF OTHER SPECIFIED PART 05/13/2019 MIKE BONILLA MD Ot Z91. 19 PATIENT'S NONCOMPLIANCE W [facility] MEDICAL TR 05/13/2019 MIKE BONILLA MD Ot Z95. 0 PRESENCE OF CARDIAC PACEMAKER 05/15/2019 MIKE BONILLA MD Ot E11. 40 TYPE 2 DIABETES MELLITUS WITH DIABETIC N 05/15/2019 MIKE BONILLA MD Ot E66. 9 OBESITY, UNSPECIFIED 05/15/2019 MIKE BONILLA MD Ot E78. 5 HYPERLIPIDEMIA, UNSPECIFIED 05/15/2019 MIKE BONILLA MD Ot I11. 9 HYPERTENSIVE HEART DISEASE WITHOUT HEART 05/15/2019 MIKE BONILLA MD Ot I25. 10 ATHSCL HEART DISEASE OF [place] CORONARY 05/15/2019 MIKE BONILLA MD, Ot I65. 29 OCCLUSION AND STENOSIS OF UNSPECIFIED CA 05/15/2019 MIKE BONILLA MD Ot Z68. 36 BODY MASS INDEX (BMI) 36.0-36.9, ADULT 05/15/2019 MIKE BONILLA MD Ot Z79. 82 REINFORCEMENT MAKER (CURRENT) USE OF ASPIRIN 05/15/2019 MIKE BONILLA MD, Ot Z79.899 OTHER REINFORCEMENT MAKER (CURRENT) DRUG THERAPY 05/15/2019 MIKE BONILLA MD, Ot Z82. 49 FAMILY HX OF ISCHEM HEART DIS AND OTH DI 05/15/2019 MIKE BONILLA MD Ot Z83. 3 FAMILY HISTORY OF DIABETES MELLITUS 05/15/2019 MIKE BONILLA MD, Ot Z90. 49 ACQUIRED ABSENCE OF OTHER SPECIFIED PART 05/15/2019 MIKE BONILLA MD, Ot Z91. 19 PATIENT'S NONCOMPLIANCE W OT MEDICAL TR 05/15/2019 MIKE BONILLA MD Ot Z95. 0 PRESENCE OF CARDIAC PACEMAKER 05/15/2019 MIKE BONILLA MD, Ot E78. 5 HYPERLIPIDEMIA, UNSPECIFIED 05/15/2019 MIKE BONILLA MD Ot G93. 89 OTHER SPECIFIED DISORDERS OF BRAIN 05/15/2019 MIKE BONILLA MD, Ot I11. 9 HYPERTENSIVE HEART DISEASE WITHOUT HEART 05/15/2019 MIKE BONILLA MD, Ot I25. 10 ATHSCL HEART DISEASE OF [place] CORONARY 05/15/2019 MIKE BONILLA MD Ot I45. 10 UNSPECIFIED RIGHT BUNDLE-BRANCH BLOCK 05/15/2019 MIKE BONILLA MD, Ot I51. 89 OTHER ILL-DEFINED HEART DISEASES 05/15/2019 MIKE BONILLA MD, Ot I65. 29 OCCLUSION AND STENOSIS OF UNSPECIFIED CA Procedures There is no data. Results Test Result Range Hemoglobin A1C - 07/06/16 10:01 % A1C 7.80 % 5.40-6.60 AvGlu 202 mg/dL 70-110 Urinalysis - 06/28/17 10:32 Icotest N/A Negative Urine Volume Urine Volume Sufficient (10mL) Urine Yeast No Yeast present Urine-Appearance Clear Clear Urine-Bacteria Negative Urine-Bilirubin Negative Negative Urine-Blood Negative Negative Urine-Color Yellow Colorless-[place] ow Urine-Epithelial Cells 0-5/HPF Urine-Glucose Negative Negative Urine-Ketones Negative Negative Urine-Leukocytes Negative Negative Urine-Mucus 1+ Urine-Nitrite Negative Negative Urine-Other Urine Saved if Culture Need ed (48hrs from time of collection) Urine-pH 6.0 5-8.5 Urine-Protein 1+ Negative Urine-RBC Negative Urine-Specific [place] >=1.030 1.000-1 .030 Urine-WBC Nothing Seen on Microscopic Urobilinogen 0.2 E.U./dL 0.2-1.0 Lipid Panel - 09/27/17 13:26 C/HDL 4.2 3.7-6.7 Cholesterol 151 mg/dL 100-240 HDL 36 mg/dL 30-85 LDL-Calculated 84 mg/dL 0-100 Trig 153 mg/dL 35-160 VLDL 31 mg/dL 0-42 Automated blood complete blood count (he mogram) panel - 02/14/18 08:20 Blood leukocytes automated count (number/volume) 12.3 10*3/uL 4.3-11.0 Blood erythrocytes automated count (number/volume) 4.88 10*6/uL 4.35-5.85 Venous blood hemoglobin measurement (mass/volume) 14.9 g/dL 13.3-17.7 Blood hematocrit (volume fraction) 44 % 40-54 Automated erythrocyte mean corpuscular volume 91 [ foz_us] 80-99 Automated erythrocyte mean corpuscular h emoglobin (mass per erythrocyte) 31 pg 25-34 Automated erythrocyte mean corpuscular h emoglobin concentration measurement (mass/volume) 34 g/dL 32-36 Automated erythrocyte distribution width ratio 13. 8 % 10.0- 14.5 Automated blood platelet count (count/volume) 314 10*3/uL 130-400 Automated blood platelet mean volume measurement 10.7 [foz_us] 7.4-10.4 Comprehensive metabolic panel - 02/14/18 08:20 Serum or plasma sodium measurement (moles/volume) 140 mmol/L 135-145 Serum or plasma potassium measurement (moles/volume) 4.6 mmol/L 3.6-5.0 Serum or plasma chloride measurement (moles/volume) 103 mmol/L 98-107 Carbon dioxide 25 mmol/L 21-32 Serum or plasma anion gap determination (moles/volume) 12 mmol/L 5-14 Serum or plasma urea nitrogen measurement (mass/volume ) 25 mg/dL 7-18 Serum or plasma creatinine measurement (mass/volume) 1.17 mg/dL 0.60-1.30 Serum or plasma urea nitrogen/creatinine mass ratio 21 NRG Serum or plasma creatinine measurement w ith calculation of estimated glomerular filtration rate > NRG Serum or plasma glucose measurement (mass/volume) 126 mg/dL 70-105 Serum or plasma calcium measurement (mass/volume) 9.6 mg/dL 8.5-10.1 Serum or plasma total bilirubin measurement (mass/volu me) 0.5 mg/dL 0.1-1.0 Serum or plasma alkaline phosphatase daniele surement (enzymatic activity/volume) 103 U/L 40-136 Serum or plasma aspartate aminotransfera se measurement (enzymatic activity/volume) 33 U/L 5-34 Serum or plasma alanine aminotransferase measurement (enzymatic activity/volume) 15 U/L 0-55 Serum or plasma protein measurement (mass/volume) 7.9 g/dL 6.4-8.2 Serum or plasma albumin measurement (mass/volume) 4.0 g/dL 3.2-4.5 CALCIUM CORRECTED 9.6 mg/dL 8.5-10.1 Lipid 1996 panel - 02/14/18 08:20 Serum or plasma triglyceride measurement (mass/volume) 140 mg/dL <150 Serum or plasma cholesterol measurement (mass/volume) 153 mg/dL < 200 Serum or plasma cholesterol in HDL measurement (mass/v olume) 32 mg/dL 40-60 Cholesterol in LDL [mass/volume] in serum or plasma by direct assay 88 mg/dL 1-129 Serum or plasma cholesterol in VLDL measurement (mass/ volume) 28 mg/dL 5-40 PT panel in platelet poor plasma by coag ulation assay - 02/14/18 08:20 Prothrombin time (PT) in platelet poor plasma by coagu lation assay 14.1 s 12.2-14.7 INR in platelet poor plasma or blood by coagulation as say 1.1 0.8-1.4 Activated partial thromboplastin time (a PTT) in platelet poor plasma bycoagulation assay - 02/14/18 08:20 Activated partial thromboplastin time (a PTT) in platelet poor plasma bycoagulation assay 28 s 24-35 Methicillin resistant Staphylococcus aur eus (MRSA) screening culture - 02/14/18 08:20 Methicillin resistant Staphylococcus aureus (MRSA) scr eening culture NEG NRG Capillary blood glucose measurement by g lucometer (mass/volume) - 02/14/18 10:56 Capillary blood glucose measurement by glucometer (mas s/volume) 124 mg/dL 70-110 Capillary blood glucose measurement by g lucometer (mass/volume) - 02/14/18 15:45 Capillary blood glucose measurement by glucometer (mas s/volume) 218 mg/dL 70-110 Capillary blood glucose measurement by g lucometer (mass/volume) - 02/14/18 20:45 Capillary blood glucose measurement by glucometer (mas s/volume) 217 mg/dL 70-110 Capillary blood glucose measurement by g lucometer (mass/volume) - 02/15/18 00:01 Capillary blood glucose measurement by glucometer (mas s/volume) 174 mg/dL 70-110 Automated blood complete blood count (he mogram) panel - 02/15/18 05:30 Blood leukocytes automated count (number/volume) 8.8 10*3/uL 4.3-11.0 Blood erythrocytes automated count (number/volume) 4.36 10*6/uL 4.35-5.85 Venous blood hemoglobin measurement (mass/volume) 13.2 g/dL 13.3-17.7 Blood hematocrit (volume fraction) 40 % 40-54 Automated erythrocyte mean corpuscular volume 92 [ foz_us] 80-99 Automated erythrocyte mean corpuscular h emoglobin (mass per erythrocyte) 30 pg 25-34 Automated erythrocyte mean corpuscular h emoglobin concentration measurement (mass/volume) 33 g/dL 32-36 Automated erythrocyte distribution width ratio 13. 8 % 10.0- 14.5 Automated blood platelet count (count/volume) 233 10*3/uL 130-400 Automated blood platelet mean volume measurement 10.6 [foz_us] 7.4-10.4 Whole blood basic metabolic panel - 02/03 08/20 05:30 Serum or plasma sodium measurement (moles/volume) 140 mmol/L 135-145 Serum or plasma potassium measurement (moles/volume) 4.0 mmol/L 3.6-5.0 Serum or plasma chloride measurement (moles/volume) 106 mmol/L 98-107 Carbon dioxide 24 mmol/L 21-32 Serum or plasma anion gap determination (moles/volume) 10 mmol/L 5-14 Serum or plasma urea nitrogen measurement (mass/volume ) 18 mg/dL 7-18 Serum or plasma creatinine measurement (mass/volume) 0.92 mg/dL 0.60-1.30 Serum or plasma urea nitrogen/creatinine mass ratio 20 NRG Serum or plasma creatinine measurement w ith calculation of estimated glomerular filtration rate > NRG Serum or plasma glucose measurement (mass/volume) 149 mg/dL 70-105 Serum or plasma calcium measurement (mass/volume) 8.8 mg/dL 8.5-10.1 Hemoglobin A1C - 03/28/18 11:03 % A1C 7.70 % 5.40-6.60 AvGlu 197 mg/dL 70-110 Hemoglobin A1C - 06/27/18 07:14 % A1C 9.60 % 5.40-6.60 AvGlu 265 mg/dL 70-110 Lipid Panel - 09/25/18 09:47 C/HDL 4.3 3.7-6.7 Cholesterol 149 mg/dL 100-240 HDL 35 mg/dL 30-85 LDL-Calculated 87 mg/dL 0-100 Trig 134 mg/dL 35-160 VLDL 27 mg/dL 0-42 PSA Yearly Screen - 03/27/19 12:02 PSA TOTAL 0.1 ng/mL 0.0-4.0 Urinalysis - 03/27/19 12:02 Icotest N/A Negative Urine Casts Hyaline Urine Volume Urine Volume Sufficient (10mL) Urine-Appearance Clear Clear Urine-Bacteria Trace Urine-Bilirubin 1+ Negative Urine-Blood Negative Negative Urine-Color Yellow Colorless-Lt. [place] ow Urine-Epithelial Cells 5-10/HPF Urine-Glucose Negative Negative Urine-Ketones Trace Negative Urine-Leukocytes Negative Negative Urine-Mucus 1+ Urine-Nitrite Negative Negative Urine-Other Urine Saved if Culture Need ed (48hrs from time of collection) Urine-pH 6.0 5-8.5 Urine-Protein 2+ Negative Urine-RBC Negative Urine-Specific [place] >=1.030 1.000-1 .030 Urine-WBC Negative Urobilinogen 1.0 E.U./dL 0.2-1.0 Complete urinalysis with reflex to cultu re - 05/08/19 08:21 Urine color determination YELLOW NRG Urine clarity determination CLEAR NR G Urine pH measurement by test strip 6.0 5-9 Specific gravity of urine by test strip 1.025 1.016-1.022 Urine protein assay by test strip, semi-quantitative NEGATIVE NEGATIVE Urine glucose detection by automated test strip NE GATIVE NEGATIVE Erythrocytes detection in urine sediment by light micr oscopy NEGATIVE NEGATIVE Urine ketones detection by automated test strip NE GATIVE NEGATIVE Urine nitrite detection by test strip NEGATIVE NEGATIVE Urine total bilirubin detection by test strip NEGA TIVE NEGATIVE Urine urobilinogen measurement by automated test strip (mass/volume) 0.2 mg/dL < = 1.0 Urine leukocyte esterase detection by dipstick NEG ATIVE NEGATIVE Automated urine sediment erythrocyte cou nt by microscopy (number/high power field) NONE NRG Automated urine sediment leukocyte count by microscopy (number/high power field) [HPF] NRG Bacteria detection in urine sediment by light microsco py TRACE NRG Squamous epithelial cells detection in u rine sediment by light microscopy 10-25 NRG Crystals detection in urine sediment by light microsco py NONE NRG Casts detection in urine sediment by light microscopy NONE NRG Mucus detection in urine sediment by light microscopy SMALL NRG Complete urinalysis with reflex to culture NO NRG Automated blood complete blood count (he mogram) panel - 05/08/19 08:33 Blood leukocytes automated count (number/volume) 12.1 10*3/uL 4.3-11.0 Blood erythrocytes automated count (number/volume) 4.86 10*6/uL 4.35-5.85 Venous blood hemoglobin measurement (mass/volume) 14.6 g/dL 13.3-17.7 Blood hematocrit (volume fraction) 45 % 40-54 Automated erythrocyte mean corpuscular volume 93 [ foz_us] 80-99 Automated erythrocyte mean corpuscular h emoglobin (mass per erythrocyte) 30 pg 25-34 Automated erythrocyte mean corpuscular h emoglobin concentration measurement (mass/volume) 32 g/dL 32-36 Automated erythrocyte distribution width ratio 13. 6 % 10.0- 14.5 Automated blood platelet count (count/volume) 311 10*3/uL 130-400 Automated blood platelet mean volume measurement 10.7 [foz_us] 7.4-10.4 Methicillin resistant Staphylococcus aur eus (MRSA) screening culture - 05/08/19 08:33 Methicillin resistant Staphylococcus aureus (MRSA) scr eening culture NEG NRG Automated blood complete blood count (he mogram) panel - 05/09/19 03:55 Blood leukocytes automated count (number/volume) 12.6 10*3/uL 4.3-11.0 Blood erythrocytes automated count (number/volume) 4.78 10*6/uL 4.35-5.85 Venous blood hemoglobin measurement (mass/volume) 14.5 g/dL 13.3-17.7 Blood hematocrit (volume fraction) 44 % 40-54 Automated erythrocyte mean corpuscular volume 92 [ foz_us] 80-99 Automated erythrocyte mean corpuscular h emoglobin (mass per erythrocyte) 30 pg 25-34 Automated erythrocyte mean corpuscular h emoglobin concentration measurement (mass/volume) 33 g/dL 32-36 Automated erythrocyte distribution width ratio 13. 6 % 10.0- 14.5 Automated blood platelet count (count/volume) 281 10*3/uL 130-400 Automated blood platelet mean volume measurement 10.6 [foz_us] 7.4-10.4 Whole blood basic metabolic panel - 10/21 03:55 Serum or plasma sodium measurement (moles/volume) 141 mmol/L 135-145 Serum or plasma potassium measurement (moles/volume) 3.6 mmol/L 3.6-5.0 Serum or plasma chloride measurement (moles/volume) 105 mmol/L 98-107 Carbon dioxide 24 mmol/L 21-32 Serum or plasma anion gap determination (moles/volume) 12 mmol/L 5-14 Serum or plasma urea nitrogen measurement (mass/volume ) 19 mg/dL 7-18 Serum or plasma creatinine measurement (mass/volume) 1.01 mg/dL 0.60-1.30 Serum or plasma urea nitrogen/creatinine mass ratio 19 NRG Serum or plasma creatinine measurement w ith calculation of estimated glomerular filtration rate > NRG Serum or plasma glucose measurement (mass/volume) 133 mg/dL 70-105 Serum or plasma calcium measurement (mass/volume) 9.4 mg/dL 8.5-10.1 Encounters ACCT No. Visit Date/Time Discharge Status Pt. Type Provider Facility Loc./Unit Complaint [id number] 03/27/2019 11:57:00 03/27/2019 23:59: 00 DIS Outpatient Hemanth Rojas [id number] 03/26/2019 11:17:00 03/26/2019 23:59: 00 DIS Outpatient Hemanth Rojas [id number] 09/25/2018 09:44:00 09/25/2018 23:59: 00 DIS Outpatient Hemanth Rojas [id number] 09/11/2018 19:14:00 09/11/2018 20:25: 00 DIS Outpatient [facility] [id number] 06/27/2018 07:09:00 06/27/2018 23:59: 00 DIS Outpatient ROSETTA TAYLOR [id number] 03/28/2018 10:58:00 03/28/2018 23:59: 00 DIS Outpatient Hemanth Rojas [id number] 09/27/2017 13:21:00 09/27/2017 23:59: 00 DIS Outpatient Hemanth Rojas [id number] 06/28/2017 10:29:00 06/28/2017 23:59: 00 DIS Outpatient Hemanth Rojas [id number] 07/06/2016 09:41:00 07/06/2016 23:59: 00 DIS Outpatient Hemanth Rojas [id number] 06/29/2016 00:00:00 06/29/2016 23:59: 00 DIS Outpatient Hemanth Rojas [id number] 06/23/2016 10:52:00 06/23/2016 23:59: 00 DIS Outpatient Hemanth Rojas [id number] 09/25/2018 08:50:00 Document Registration [id number] 06/26/2018 08:47:00 Document Registration [id number] 06/01/2018 01:16:14 Document Registration [id number] 03/28/2018 09:57:00 Document Registration [id number] 09/26/2017 10:11:00 Document Registration [id number] 06/27/2017 09:52:00 Document Registration [id number] 05/11/2019 21:00:00 23:59:59 CLS Preadmit CHAD WHITE, MIKE Reddy [facility] SLEEP BARBIE G47.33 [id number] 05/08/2019 08:08:00 12/05/2 019 09:05:00 DIS Outpatient MIKE BONILLA MD [facility] ABN STRESS [id number] 04/17/2019 07:52:00 019 23:59:59 CLS Outpatient MIKE BONILLA MD [facility] HTN,CAD,CAROTID ARTERY STENOSIS [id number] 04/16/2019 11:53:00 019 23:59:59 CLS Outpatient MIKE BONILLA MD [facility] HTN,CAD,CAROTID ARTERY STENOSIS [id number] 02/14/2018 10:00:00 018 23:59:59 CLS Outpatient MIKE BONILLA MD [facility] CP,CAD,SOB [id number] 09/18/2015 10:42:00 016 23:59:59 CLS Outpatient MALU GALLARDO [facility] CAD,CAROTID ARTERY STENOSIS,HTN,HLP [id number] 12/09/2013 07:41:00 014 23:59:59 CLS Outpatient MIKE BONILLA MD [facility] CAD HYPERTENSION HYPERL IPIDEMIA [id number] 11/27/2013 08:46:00 014 23:59:59 CLS Outpatient MIKE BONILLA MD [facility] CAD HYPERTENSION HYPERL IPIDEMIA [id number] 04/11/2012 07:14:00 Document Registration [id number] 04/02/2012 08:03:00 Document Registration [id number] 09/02/2011 09:04:00 Document Registration
== END 2019-05-09 09:05 | disposition home or self-care (01) ==
LOC: CATH 08:08 → CSD 11:00 → CATH 05-09 09:05
PROVIDERS: ATTEND Internal Medicine Cardiovascular Disease
DX: I25.10 Atherosclerotic heart disease of native coronary artery without angina pectoris (principal); I11.9 Hypertensive heart disease without heart failure; E11.40 Type 2 diabetes mellitus with diabetic neuropathy, unspecified; E78.5 Hyperlipidemia, unspecified; I65.29 Occlusion and stenosis of unspecified carotid artery; E66.9 Obesity, unspecified; Z79.899 Other long term (current) drug therapy; Z79.82 Long term (current) use of aspirin; Z91.19 Patient's noncompliance with other medical treatment and regimen; Z90.49 Acquired absence of other specified parts of digestive tract; Z95.0 Presence of cardiac pacemaker; Z68.36 Body mass index [BMI] 36.0-36.9, adult; Z83.3 Family history of diabetes mellitus; Z82.49 Family history of ischemic heart disease and other diseases of the circulatory system
CPT/HCPCS: 36415; 71045; 80048; 80053; 80061; 81000; 85027; 85610; 85730; 87081; 93005; 93453

== ENCOUNTER 2023-03-31 14:52 | Emergency (ER) | payer MEDICARE, OTHER ==
[~2023-03-31] VITALS: Ht 172 cm; Wt 107.0 kg
[~2023-03-31 14:52] MED LIST changes: +AMLO-251 PO; +CLOP-31 PO; -CLOP75TA69 PO; +DESI50TA PO; +FOLI0.4T6 PO; +GEMF600T88 PO; +HUM100VI15 SQ; +INSA70301U SQ; +ISOS30TA82 PO; +LISI40TA9 PO; +MULT-567 PO; +ROSU20TA73 PO; +TICA90TA PO
--- NOTE | 2023-03-31 15:16 | ED General ---
General Chief Complaint: General Problems/Pain Stated Complaint: WEAKNESS Nursing Triage Note: Patient to ER via [facility] from home with c/o generalized weakness. Patient reports interimittent bilat leg pain and states legs were hurting and he lowered himself to the ground. EMS found patient on ground upon arrival to scene. Patient denies any leg pain upon arrival to ER. Source of Information: Patient, EMS, Family Exam Limitations: No Limitations (ZEYNEP ALVARES DO) History of Present Illness Date Seen by Provider: Mar 31, 2023 Time Seen by Provider: 15:11 Initial Comments 78-year-old male presents via EMS from home for weakness of lower extremities. He states he can pick his legs up just fine but they will not hold him. States he sat himself down to the ground and has been not using his legs for the last 2 days he states he was on the floor however family states he has been in his recliner. Denies incontinence of stool or urine. No saddle anesthesia. Denies back pain or injury. Denies nausea vomiting abdominal pain states he did not fall. Denies history of blood transfusion although conjunctive and soft palate are very pale. He states he has not gotten up and walked for the last 2 days he also states he has not had a bowel movement for 2 days but states this is normal for him. He is not diabetic but EMS reported his initial blood sugar was in the 50s. 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 " Timing/Duration: 2-3 Days Severity: Moderate Associated Systoms: Weakness (ZEYNEP ALVARES DO) Allergies and Home Medications Allergies Coded Allergies: No Known Drug Allergies (Unverified , 04/02/12) Patient Home Medication List Home Medication List Reviewed: Yes (ZEYNEP ALVARES DO) Amlodipine Besylate (Amlodipine Besylate) 10 Mg Tablet, 10 MG PO DAILY, (Reported) Entered as Reported by: KVNG CARTAGENA on 05/08/19 0855 Aspirin (Aspir 81) 81 Mg Tablet.dr, 81 MG PO HS, (Reported) Entered as Reported by: JUWAN MACKENZIE on 02/14/18 0847 Cholecalciferol (Vitamin D3) (Vitamin D3) 5,000 Unit Capsule, 5,000 UNIT PO DAILY, (Reported) Entered as Reported by: JUWAN MACKENZIE on 02/14/18 0848 Cinnamon Bark (Cinnamon) 500 Mg Capsule, 500 MG PO BID, (Reported) Entered as Reported by: JUWAN MACKENZIE on 02/14/18 0857 Citalopram Hydrobromide (Citalopram HBr) 20 Mg Tablet, 20 MG PO HS, (Reported) Entered as Reported by: JUWAN MACKENZIE on 02/14/18 0849 Desipramine HCl (Desipramine HCl) 50 Mg Tablet, 50 MG PO DAILY, (Reported) Entered as Reported by: KVNG CARTAGENA on 05/08/19 1051 Finasteride (Finasteride) 5 Mg Tablet, 5 MG PO DAILY, (Reported) Entered as Reported by: KVNG CARTAGENA on 05/08/19 0855 Flaxseed Oil (Flaxseed) 1,000 Mg Capsule, 650 MG PO BID, (Reported) Entered as Reported by: JUWAN MACKENZIE on 02/14/18 0854 Folic Acid (Folic Acid) 0.4 Mg Tablet, 0.8 MG PO DAILY, (Reported) Entered as Reported by: JUWAN MACKENZIE on 02/14/18 0855 Folic Acid (Folic Acid) 0.4 Mg Tablet, 0.4 MG PO HS, (Reported) Entered as Reported by: JUWAN MACKENZIE on 02/14/18 0855 Gemfibrozil (Gemfibrozil) 600 Mg Tablet, 600 MG PO BID, (Reported) Entered as Reported by: KVNG CARTAGENA on 05/08/19 0855 Insulin NPH Hum/Reg Insulin Hm (Novolin 70-30 100 Unit/ml Vial) 100 Unit/1 Ml Vial, 75 UNIT SQ DAILY, (Reported) Entered as Reported by: KVNG CARTAGENA on 05/08/19 0943 Insuln Asp Prt/Insulin Aspart (Novolog Mix 70-30 Vial) 1 Unit/0.01 Ml Susp, 69 UNIT SQ 1800, (Reported) Entered as Reported by: KVNG CARTAGENA on 05/08/19 0943 Isosorbide Mononitrate (Isosorbide Mononitrate ER) 30 Mg Tab.er.24h, 30 MG PO DAILY, (Reported) Entered as Reported by: KVNG CARTAGENA on 05/08/19 0855 Lisinopril (Lisinopril) 40 Mg Tablet, 40 MG PO DAILY, (Reported) Entered as Reported by: KVNG CARTAGENA on 05/08/19 0855 Metoprolol Tartrate (Metoprolol Tartrate) 25 Mg Tablet, 12.5 MG PO BID, (Reported) Entered as Reported by: JUWAN MACKENZIE on 02/14/18 0858 Multivitamin (Multivitamins) 1 Each Tablet, 1 EACH PO DAILY, (Reported) Entered as Reported by: KVNG CARTAGENA on 05/08/19 0943 Rosuvastatin Calcium (Rosuvastatin Calcium) 20 Mg Tablet, 10 MG PO DAILY, (Reported) Entered as Reported by: KVNG CARTAGENA on 05/08/19 0855 Ticagrelor (Brilinta) 90 Mg Tablet, 90 MG PO BID Prescribed by: MIKE BONILLA on 05/09/19 0807 Review of Systems Review of Systems Constitutional: see HPI, weakness EENTM: see HPI Respiratory: no symptoms reported Cardiovascular: no symptoms reported, edema (Chronic lower extremity) Gastrointestinal: no symptoms reported Genitourinary: no symptoms reported Musculoskeletal: no symptoms reported Skin: no symptoms reported Psychiatric/Neurological: No Symptoms Reported Hematologic/Lymphatic: No Symptoms Reported Immunological/Allergic: no symptoms reported (ZEYNEP ALVARES DO) All Other Systems Reviewed Negative Unless Noted: Yes (ZEYNEP ALVARES DO) Past Cvmvaqj-Kmthpc-Zpjiww Hx Patient Social History Tobacco Use?: No Substance use?: No Alcohol Use?: No Pt feels they are or have been: No (ZEYNEP ALVARES DO) Past Medical History Surgery/Hospitalization HX: type 2 diabetes, hypertension CABG Respiratory: No Currently Using CPAP: No Currently Using BIPAP: No Cardiac: Yes Coronary Artery Disease, Hypertension Neurological: No Gastrointestinal: No Cancer: Yes (SKIN) Skin What Type of Treatment Did You: Surgical Intervention (ZEYNEP ALVARES DO) Physical Exam Vital Signs Vital Signs - First Documented 03/31/23 03/31/23 14:56 16:07 Temp 35.7 Pulse 91 Resp 18 B/P (MAP) 127/74 (91) Pulse Ox 93 O2 Delivery Room Air O2 Flow Rate 2.00 (RADHA PEACE DO) Vital Signs Capillary Refill : Less Than 3 Seconds (ZEYNEP ALVARES DO) Height, Weight, BMI Height: 5'10.00" Weight: 247lbs. 4.0oz. 112.001636xg; 36.00 BMI Method: General Appearance: No Apparent Distress, Chronically ill Eyes: Bilateral Eye PERRL, Bilateral Eye EOMI, Bilateral Eye Other (Pale conjunctive) HEENT: PERRL/EOMI; No Moist Mucous Membranes; Other (Pale oropharynx) Neck: Full Range of Motion, Normal Inspection, Non Tender Respiratory: Chest Non Tender, Lungs Clear, Normal Breath Sounds, No Accessory Muscle Use Cardiovascular: Regular Rate, Rhythm, No Murmur, Other (Pedal edema) Gastrointestinal: Normal Bowel Sounds, No Pulsatile Mass, Non Tender, Soft Back: No CVA Tenderness Neurologic/Psychiatric: Alert, Oriented x3, Normal Mood/Affect, Motor Weakness (Bilateral legs. Patient states he can move them they just will not hold him) Skin: Warm/Dry, Pallor (ZEYNEP ALVARES DO) General Appearance: Obese Extremity: Pedal Edema (1+ EDEMA BILATERALLY) Neurologic/Psychiatric: Other (VERY POOR MEMORY; FLAT AFFECT) (RADHA PEACE DO) Progress/Results/Core Measures Suspected Sepsis SIRS Temperature: Pulse: 91 Respiratory Rate: 18 Laboratory Tests 03/31/23 14:57: White Blood Count 9.4 Blood Pressure 127 /74 Mean: 91 Laboratory Tests 03/31/23 14:57: Creatinine 1.13, Platelet Count 214, Total Bilirubin 0.5 (ZEYNEP ALVARES DO) Results/Orders Lab Results Laboratory Tests Test 03/31/23 14:57 03/31/23 15:24 03/31/23 17:19 03/31/23 19:25 Range/Units White Blood Count 9.4 4.3-11.0 10^3/uL Red Blood Count 5.12 4.30-5.52 10^6/uL Hemoglobin 15.0 13.3-17.7 g/dL Hematocrit 47 40-54 % Mean Corpuscular Volume 92 80-99 fL Mean Corpuscular Hemoglobin 29 25-34 pg Mean Corpuscular Hemoglobin Concent 32 32-36 g/dL Red Cell Distribution Width 14.4 10.0-14.5 % Platelet Count 214 130-400 10^3/uL Mean Platelet Volume 10.9 9.0-12.2 fL Immature Granulocyte % (Auto) 0 % Neutrophils (%) (Auto) 66 42-75 % Lymphocytes (%) (Auto) 21 12-44 % Monocytes (%) (Auto) 8 0-12 % Eosinophils (%) (Auto) 4 0-10 % Basophils (%) (Auto) 0 0-10 % Neutrophils # (Auto) 6.2 1.8-7.8 X 10^3 Lymphocytes # (Auto) 2.0 1.0-4.0 X 10^3 Monocytes # (Auto) 0.8 0.0-1.0 X 10^3 Eosinophils # (Auto) 0.4 H 0.0-0.3 10^3/uL Basophils # (Auto) 0.0 0.0-0.1 10^3/uL Immature Granulocyte # (Auto) 0.0 0.0-0.1 10^3/uL Sodium Level 139 135-145 MMOL/L Potassium Level 4.3 3.6-5.0 MMOL/L Chloride Level 107 98-107 MMOL/L Carbon Dioxide Level 24 21-32 MMOL/L Anion Gap 8 5-14 MMOL/L Blood Urea Nitrogen 30 H 7-18 MG/DL Creatinine 1.13 0.60-1.30 MG/DL Estimat Glomerular Filtration Rate 67 BUN/Creatinine Ratio 27 Glucose Level 252 H 70-105 MG/DL Calcium Level 9.0 8.5-10.1 MG/DL Corrected Calcium 9.4 8.5-10.1 MG/DL Magnesium Level 2.3 1.6-2.4 MG/DL Total Bilirubin 0.5 0.1-1.0 MG/DL Aspartate Amino Transf (AST/SGOT) 50 H 5-34 U/L Alanine Aminotransferase (ALT/SGPT) 34 0-55 U/L Alkaline Phosphatase 80 40-136 U/L Total Creatine Kinase 1031 H 30-200 U/L Troponin I 0.035 H < 0.028 <0.028 NG/ML B-Type Natriuretic Peptide 68.7 <100.0 PG/ML Total Protein 6.4 6.4-8.2 GM/DL Albumin 3.5 3.2-4.5 GM/DL TSH [place] Testing 1.51 0.35-4.94 UIU/ML Ammonia 26 11-32 UMOL/L Glucometer 145 H 70-110 MG/DL Test 03/31/23 21:05 Range/Units Urine Color YELLOW Urine Clarity CLEAR Urine pH 5.0 5-9 Urine Specific [place] 1.020 1.016-1.022 Urine Protein NEGATIVE NEGATIVE Urine Glucose (UA) 3+ H NEGATIVE Urine Ketones NEGATIVE NEGATIVE Urine Nitrite NEGATIVE NEGATIVE Urine Bilirubin NEGATIVE NEGATIVE Urine Urobilinogen 0.2 < = 1.0 MG/DL Urine Leukocyte Esterase NEGATIVE NEGATIVE Urine RBC (Auto) NEGATIVE NEGATIVE Urine RBC RARE /HPF Urine WBC RARE /HPF Urine Squamous Epithelial Cells 2-5 /HPF Urine Crystals NONE /LPF Urine Bacteria TRACE /HPF Urine Casts PRESENT /LPF Urine Hyaline Casts 0-2 H /LPF Urine Mucus NEGATIVE /LPF Urine Culture Indicated NO (NATA,RADHA K DO) My Orders Orders - NATARADHA K DO Catheter(Urinary) Insert & Ass (03/31/23 18:11) Lidocaine 2% (Urojet) (Lidocaine 2% (Uro (03/31/23 18:15) Bladder Scan (03/31/23 19:34) Straight Cath For Spec.-Adult (03/31/23 19:34) Ed Iv/Invasive Line Start (03/31/23 19:54) Ns Iv 1000 Ml (Ns Iv 1000 Ml) (03/31/23 20:00) Ct Thoracic/Lumbar Spine Wo (03/31/23 19:55) Ct Abdomen/Pelvis Wo (03/31/23 19:56) (RADHA PEACE DO) Medications Given in ED Current Medications Medications Dose Ordered Sig/[place] Route Start Time Stop Time Status Last Admin Dose Admin Lidocaine HCl 10 ml ONCE ONCE TOP 03/31/23 18:15 03/31/23 18:16 DC 03/31/23 19:46 10 ML Ziprasidone 20 mg ONCE ONCE PO 03/31/23 17:30 03/31/23 17:31 DC 03/31/23 17:36 20 MG (NATA,RADHA K DO) Vital Signs/I&O 03/31/23 03/31/23 14:56 16:07 Temp 35.7 Pulse 91 Resp 18 B/P (MAP) 127/74 (91) Pulse Ox 93 O2 Delivery Room Air Nasal Cannula O2 Flow Rate 2.00 (NATA,RADHA K DO) Vital Signs/I&O Capillary Refill : Less Than 3 Seconds (ZEYNEP ALVARES DO) Blood Pressure Mean: 91 Progress Note : Progress Note 1800--ASSUMED CARE FROM DR. ALVARES AT SHIFT CHANGE, UA PENDING 1834--UNABLE TO PASS [place] OR STRAIGHT CATHETER. BLADDER SCAN > 300 ML URINE PT HAS ABNORMAL PENILE ANATOMY, REPORTS THERE ARE "2 OPENINGS ON THE INSIDE" BUT ONLY SINGLE URETHRAL MEATUS IS VISIBLE 1999--PT STILL HAS NOT GIVEN URINE SPECIMEN. PT IS NOT MAKING ANY EFFORT TO URINATE AT ALL--LAYING IN BED WITH EYES CLOSED. REPORTS THAT HE NORMALLY URINATES "CONSTANTLY ALL DAY LONG" AND HAS BEEN URINATING LIKE HE NORMALLY DOES ALL DAY. SHE STATES NORMALLY HE SITS/LAYS IN RECLINER ALL DAY, AND URINATES IN SITTING POSITION. 2109--PT ASSISTED TO STAND AT BEDSIDE AND PT WAS ABLE TO VOID AT LEAST 450 ML URINE ON HIS OWN. UA IS CLEAR LABS UNREMARKABLE FOR ACUTE PROCESS XRAYS AND CT SCANS OF HEAD, SPINE, ABDOMEN AND PELVIS DO NOT SHOW ANY ACUTE PROCESS PT IS ABLE TO STAND AT BEDSIDE WITH MINIMAL ASSIST. PT IS NORMALLY MINIMALLY AMBULATORY AT BASELINE, AND SITS/LAYS IN RECLINER ALL DAY. PT DOES NOT MEET ANY ADMIT CRITERIA AT THIS POINT. PT STATES HE FEELS COMFORTABLE GOING HOME AND AND DAUGHTER FEEL COMFORTABLE TAKING HIM HOME. PT IS ALERT AND ORIENTED TO PERSON, PLACE AND GENERALLY ORIENTED TO SITUATION. STATES THAT PT WAS ADMITTED TO [facility] ABOUT A MONTH AGO, DR. CARTER WAS HIS DR. HE STATES HE WILL NOT CONTINUE TO SEE DR. CARTER. HE WAS REFERRED TO [facility] [place]. HE DOES NOT GO [place] ANY OTHER [place]ACILITY. HE DOES NOT HAVE A PRIMARY CARE ANYWHERE LIST OF LOCAL DR'S PROVIDED TO PATIENT (RADHA PEACE DO) ECG EKG : EKG Time: 15:00 Rate: 90 Rhythm: Right bundle branch block with left anterior fascicular block (ZEYNEP ALVARES DO) Diagnostic Imaging Comments CXR--PER RADIOLOGIST REPORT FINDINGS: Lungs/pleura: Lungs are clear. There is no pneumothorax. There is no pleural effusion. Mediastinum: Unremarkable. Pulmonary vasculature: Unremarkable. Heart: There is cardiomegaly. There are postoperative changes to the chest consistent with CABG again noted. Bones/extrathoracic soft tissue: Unremarkable. IMPRESSION: 1: Stable chest x-ray exam with no radiographic evidence of acute cardiopulmonary process. 2: Stable cardiomegaly with no significant pulmonary vascular congestion CT HEAD--PER RADIOLOGIST REPORT FINDINGS: There is atrophy which appears age appropriate. Chronic changes in a periventricular distribution noted with no superimposed acute hemorrhage or infarct. There is no mass, mass effect or midline shift. The ventricles are somewhat prominent but perhaps chronic. This could be due to normal pressure hydrocephalus or secondary to the surrounding atrophy. Correlate with history. IMPRESSION: 1. No hemorrhage or infarct. 2. Prominence of the ventricles, as noted above. CT ABDOMEN/PELVIS--PER RADIOLOGIST REPORT AT 2046 FINDINGS: The lung bases demonstrate no evidence of pneumonia or edema. There is no pleural or pericardial fluid. Liver demonstrates no focal abnormality. The gallbladder surgically absent. There is no biliary dilatation. The pancreas is a 1 cm low-density lesion within the mid pancreatic body. There is no pancreatic ductal dilatation. There are splenic granulomas. There is no adrenal mass. The kidneys demonstrate no findings of hydronephrosis. There is no urolithiasis or perinephric fat stranding. There is a small hiatal hernia. The stomach is nondistended. There are no findings of abnormal small or large bowel dilatation. There is no evidence to suggest bowel obstruction. There is a large degree of stool present within the rectum. There is diverticulosis but no evidence of diverticulitis The urinary bladder is distended. There is no bladder wall thickening or adjacent fat stranding or fluid. There are no findings of free air. There is no abscess. There is no adenopathy. There is advanced aortic and iliac atherosclerosis. There are degenerative features within the spine without acute or suspicious osseous abnormality. IMPRESSION: 1. Distended urinary bladder without evidence of bladder wall thickening or identifiable bladder mass. 2. No findings of bowel obstruction. There is advanced diverticulosis. There is also a large volume of stool within the colon. 3. 1 cm low-density lesion within the mid pancreatic body. Neoplasm not excluded. Consider followup with pancreatic protocol abdominal MRI. CT THORACIC/LUMBAR SPINE--PER RADIOLOGIST REPORT AT 2049 FINDINGS: Alignment of the thoracic and lumbar spine are normal. The vertebral body heights throughout the thoracic and lumbar spine are maintained. There are no findings to suggest an acute fracture. There is no evidence of a suspicious marrow replacing lesion. At the L3 level, there is either a remote ununited fracture of the right L3 transverse process or a nonunited ossification center. The thoracic spine demonstrates multiple ventral bridging thoracic osteophytes. There are no CT findings to suggest high-grade thoracic canal stenosis. Within the lumbar spine with a moderate narrowing of the central canal at L3-L4 and severe central canal stenosis at the L4-L5 level due to disc bulging, facet arthropathy and ligamentous thickening. Regards to the neural foramen there also appears to likely be high-grade bilateral L4-L5 foraminal stenosis. The bones of the pelvis are unremarkable. There is no free fluid. There are atherosclerotic calcifications within the aorta and the iliacs. The visualized portion of the lungs demonstrate no findings of pneumonia or edema. There are background features of centrilobular emphysema. IMPRESSION: 1. Normal height and alignment of the thoracic and lumbar spine without findings of fracture or suspicious marrow replacing lesion. 2. No evidence to suggest significant thoracic canal stenosis. 3. Within the lumbar spine there appears to be at least moderate canal stenosis at L3-L4 as well as severe central canal and likely severe bilateral foraminal stenosis at the L4-L5 level. This appears to be secondary to disc bulging, facet arthropathy and ligamentous thickening. Superimposed disc herniation may also be present. These findings would be better assessed with MRI if the patient has no clinical contraindications. Reviewed: Reviewed by Me (RADHA PEACE DO) Departure Communication (Admissions) 1949--SPOKE WITH DR. JIMÉNEZ, HOSPITALIST. HE ADVISES TO OBTAIN CT SCAN OF SPINE--WILL ALSO DO ABDOMEN/PELVIS--TO R/O UNDERLYING PATHOLOGY. WILL GIVE ADDITIONAL FLUIDS AND ATTEMPT TO OBTAIN URINE SPECIMEN (RADHA PEACE DO) Impression Primary Impression: Generalized weakness Additional Impressions: IDDM (insulin dependent diabetes mellitus) HTN (hypertension) Hx of congestive heart failure Urinary retention Dementia Obesity DEGENERATIVE CHANGES OF SPINE Disposition: HOME, SELF-CARE Condition: Stable Departure-Patient Inst. Decision time for Depature: 21:40 (RADHA PEACE DO) Referrals: PORTER CARTER DO (PCP/Family) Primary Care Physician Patient Instructions: Carb counting for adults with diabetes, High Blood Pressure ED, Weakness ED Add. Discharge Instructions: CONTINUE YOUR REGULAR MEDICATIONS PRESCRIBED FOLLOW UP WITH OF CHOICE NEXT WEEK FOR FURTHER CARE. All discharge instructions reviewed with patient and/or family. Voiced understanding. Work/School Note: Local Medical Staff Listing ZEYNEP ALVARES DO Mar 31, 2023 15:16 RADHA PEACE DO Mar 31, 2023 18:37
[2023-03-31 15:19] LABS: BASOPHILS % (AUTO) 0 % (0-10); EOSINOPHILS # (AUTO) 0.4 10^3/uL (0.0-0.3); EOSINOPHILS % (AUTO) 4 % (0-10); HEMATOCRIT 47 % (40-54); LYMPHOCYTES % (AUTO) 21 % (12-44); MEAN CORPUSCULAR HEMOGLOBIN 29 pg (25-34); MEAN CORPUSCULAR HGB CONC 32 g/dL (32-36); MEAN CORPUSCULAR VOLUME 92 fL (80-99); MEAN PLATELET VOLUME 10.9 fL (9.0-12.2); MONOCYTES # (AUTO) 0.8 X 10^3 (0.0-1.0); MONOCYTES % (AUTO) 8 % (0-12); NEUTROPHILS # (AUTO) 6.2 X 10^3 (1.8-7.8); NEUTROPHILS % (AUTO) 66 % (42-75); PLATELET COUNT 214 10^3/uL (130-400); WHITE BLOOD COUNT 9.4 10^3/uL (4.3-11.0)
[2023-03-31 15:27] LABS: ALBUMIN 3.5 GM/DL (3.2-4.5); POTASSIUM 4.3 MMOL/L (3.6-5.0)
[2023-03-31 15:30] LABS: TOTAL PROTEIN 6.4 GM/DL (6.4-8.2)
[2023-03-31 15:32] LABS: BILIRUBIN,TOTAL 0.5 MG/DL (0.1-1.0)
[2023-03-31 15:33] LABS: CREATININE SERUM 1.13 MG/DL (0.60-1.30)
[2023-03-31 15:36] LABS: MAGNESIUM 2.3 MG/DL (1.6-2.4)
--- NOTE | 2023-03-31 15:42 | Diagnostic Imaging Report ---
PROCEDURE: CT head without contrast. TECHNIQUE: Multiple contiguous axial images were obtained through the brain without the use of intravenous contrast. Auto Exposure Controls were utilized during the CT exam to meet ALARA standards for radiation dose reduction. INDICATION: Generalized weakness. Acute mental status change. CT brain without contrast 03/31/2023 FINDINGS: There is atrophy which appears age appropriate. Chronic changes in a periventricular distribution noted with no superimposed acute hemorrhage or infarct. There is no mass, mass effect or midline shift. The ventricles are somewhat prominent but perhaps chronic. This could be due to normal pressure hydrocephalus or secondary to the surrounding atrophy. Correlate with history. IMPRESSION: 1. No hemorrhage or infarct. 2. Prominence of the ventricles, as noted above. Dictated by: Dictated on workstation # [id number]
--- NOTE | 2023-03-31 15:51 | Diagnostic Imaging Report ---
CLINICAL INDICATION: Patient complains of generalized weakness. EXAM: Portable chest x-ray, upright view. COMPARISON: Chest x-ray dated 05/08/2019. FINDINGS: Lungs/pleura: Lungs are clear. There is no pneumothorax. There is no pleural effusion. Mediastinum: Unremarkable. Pulmonary vasculature: Unremarkable. Heart: There is cardiomegaly. There are postoperative changes to the chest consistent with CABG again noted. Bones/extrathoracic soft tissue: Unremarkable. IMPRESSION: 1: Stable chest x-ray exam with no radiographic evidence of acute cardiopulmonary process. 2: Stable cardiomegaly with no significant pulmonary vascular congestion. Dictated by: Dictated on workstation # [id number]
[2023-03-31 15:56] LABS: TSH (THYROID ANALYZER) 1.51 UIU/ML (0.35-4.94)
[2023-03-31] MEDS ORDERED: NS IV 1000 ML 1,000 ML IV SCH ×2 (16:15→20:00)
[2023-03-31] MEDS ORDERED: ZIPRASIDONE 20 MG CAPSULE PO ONE (17:30)
[2023-03-31] MEDS ORDERED: LIDOCAINE UROJET 2% GEL 10 ML PKG TOP ONE (18:15)
--- NOTE | 2023-03-31 20:31 | Diagnostic Imaging Report ---
PROCEDURE: CT abdomen and pelvis without contrast. TECHNIQUE: Multiple contiguous axial images were obtained through the abdomen and pelvis without the use of intravenous contrast. Auto Exposure Controls were utilized during the CT exam to meet ALARA standards for radiation dose reduction. INDICATION: Urinary retention and weakness. FINDINGS: The lung bases demonstrate no evidence of pneumonia or edema. There is no pleural or pericardial fluid. Liver demonstrates no focal abnormality. The gallbladder surgically absent. There is no biliary dilatation. The pancreas is a 1 cm low-density lesion within the mid pancreatic body. There is no pancreatic ductal dilatation. There are splenic granulomas. There is no adrenal mass. The kidneys demonstrate no findings of hydronephrosis. There is no urolithiasis or perinephric fat stranding. There is a small hiatal hernia. The stomach is nondistended. There are no findings of abnormal small or large bowel dilatation. There is no evidence to suggest bowel obstruction. There is a large degree of stool present within the rectum. There is diverticulosis but no evidence of diverticulitis The urinary bladder is distended. There is no bladder wall thickening or adjacent fat stranding or fluid. There are no findings of free air. There is no abscess. There is no adenopathy. There is advanced aortic and iliac atherosclerosis. There are degenerative features within the spine without acute or suspicious osseous abnormality. IMPRESSION: 1. Distended urinary bladder without evidence of bladder wall thickening or identifiable bladder mass. 2. No findings of bowel obstruction. There is advanced diverticulosis. There is also a large volume of stool within the colon. 3. 1 cm low-density lesion within the mid pancreatic body. Neoplasm not excluded. Consider followup with pancreatic protocol abdominal MRI. Dictated by: Dictated on workstation # [id number]
--- NOTE | 2023-03-31 20:48 | Diagnostic Imaging Report ---
PROCEDURE: CT thoracic and lumbar spine without contrast. TECHNIQUE: Multiple contiguous axial images were obtained through the thoracic and lumbar spine without the use of intravenous contrast. Sagittal and coronal reformations were then performed. All CT scans use one or more of the following dose optimizing techniques: automated exposure control, MA and/or KvP adjustment based on a patient size and exam type, or iterative reconstruction. INDICATION: Back pain and leg weakness. COMPARISON: CT abdomen and pelvis performed the same day. FINDINGS: Alignment of the thoracic and lumbar spine are normal. The vertebral body heights throughout the thoracic and lumbar spine are maintained. There are no findings to suggest an acute fracture. There is no evidence of a suspicious marrow replacing lesion. At the L3 level, there is either a remote ununited fracture of the right L3 transverse process or a nonunited ossification center. The thoracic spine demonstrates multiple ventral bridging thoracic osteophytes. There are no CT findings to suggest high-grade thoracic canal stenosis. Within the lumbar spine with a moderate narrowing of the central canal at L3-L4 and severe central canal stenosis at the L4-L5 level due to disc bulging, facet arthropathy and ligamentous thickening. Regards to the neural foramen there also appears to likely be high-grade bilateral L4-L5 foraminal stenosis. The bones of the pelvis are unremarkable. There is no free fluid. There are atherosclerotic calcifications within the aorta and the iliacs. The visualized portion of the lungs demonstrate no findings of pneumonia or edema. There are background features of centrilobular emphysema. IMPRESSION: 1. Normal height and alignment of the thoracic and lumbar spine without findings of fracture or suspicious marrow replacing lesion. 2. No evidence to suggest significant thoracic canal stenosis. 3. Within the lumbar spine there appears to be at least moderate canal stenosis at L3-L4 as well as severe central canal and likely severe bilateral foraminal stenosis at the L4-L5 level. This appears to be secondary to disc bulging, facet arthropathy and ligamentous thickening. Superimposed disc herniation may also be present. These findings would be better assessed with MRI if the patient has no clinical contraindications. Dictated by: Dictated on workstation # [id number]
[2023-03-31 21:30] LABS: BACTERIA,URINE TRACE /HPF; BILIRUBIN,URINE NEGATIVE (NEGATIVE); CLARITY,URINE CLEAR; COLOR,URINE YELLOW; GLUCOSE, URINE (UA) 3+ (NEGATIVE); KETONES,URINE NEGATIVE (NEGATIVE); LEUKOCYTE ESTERASE ,URINE NEGATIVE (NEGATIVE); NITRITE,URINE NEGATIVE (NEGATIVE); PROTEIN,URINE NEGATIVE (NEGATIVE); RBC,URINE RARE /HPF; WBC,URINE RARE /HPF
[2023-03-31 21:31] LABS: HYALINE CASTS, URINE 0-2 /LPF
[2023-03-31 22:20] VITALS: BP 161/85
== END 2023-03-31 22:00 ==
LOC: EDUNIT# 14:52 → ER 14:53
DX: E11.9 Type 2 diabetes mellitus without complications (principal); I11.0 Hypertensive heart disease with heart failure; I50.9 Heart failure, unspecified; R33.9 Retention of urine, unspecified; F03.90 Unspecified dementia, unspecified severity, without behavioral disturbance, psychotic disturbance, mood disturbance, and anxiety; M47.9 Spondylosis, unspecified; E66.9 Obesity, unspecified; Z68.36 Body mass index [BMI] 36.0-36.9, adult; Z79.4 Long term (current) use of insulin
CPT/HCPCS: 36415; 70450; 71045; 72128; 72131; 74176; 80053; 81000; 82140; 82550; 82947; 83735; 83880; 84443; 84484; 85025; 93005; 96360; 96361

== ENCOUNTER 2023-04-14 20:15 | Inpatient (IN) | payer OTHER ==
[~2023-04-14] VITALS: Ht 172 cm; Wt 107.2 kg
[2023-04-14] MEDS ORDERED: LACTATED RINGERS 1,000 ML 1,000 ML IV ONE (20:30)
[2023-04-14] MEDS ORDERED: LIDOCAINE UROJET 2% GEL 10 ML PKG TOP ONE (20:30)
[2023-04-14 20:39] LABS: BASOPHILS # (AUTO) 0.1 10^3/uL (0.0-0.1); BASOPHILS % (AUTO) 1 % (0-10); EOSINOPHILS # (AUTO) 0.4 10^3/uL (0.0-0.3); EOSINOPHILS % (AUTO) 4 % (0-10); HEMATOCRIT 49 % (40-54); LYMPHOCYTES # (AUTO) 1.6 10^3/uL (1.0-4.0); LYMPHOCYTES % (AUTO) 15 % (12-44); MEAN CORPUSCULAR HEMOGLOBIN 30 pg (25-34); MEAN CORPUSCULAR HGB CONC 33 g/dL (32-36); MEAN CORPUSCULAR VOLUME 91 fL (80-99); MEAN PLATELET VOLUME 10.4 fL (9.0-12.2); MONOCYTES # (AUTO) 0.7 10^3/uL (0.0-1.0); MONOCYTES % (AUTO) 7 % (0-12); NEUTROPHILS # (AUTO) 7.7 10^3/uL (1.8-7.8); NEUTROPHILS % (AUTO) 73 % (42-75); PLATELET COUNT 234 10^3/uL (130-400); WHITE BLOOD COUNT 10.5 10^3/uL (4.3-11.0)
[2023-04-14 20:56] LABS: INR 1.1 (0.8-1.4); PROTHROMBIN TIME PATIENT 14.1 SEC (12.2-14.7)
[2023-04-14 21:15] LABS: ALANINE AMINOTRANSFERASE 20 U/L (0-55); ALKALINE PHOSPHATASE 75 U/L (40-136); AMMONIA 19 UMOL/L (11-32); BILIRUBIN,TOTAL 0.7 MG/DL (0.1-1.0); BUN/CREATININE RATIO 26; CALCIUM 9.7 MG/DL (8.5-10.1); CARBON DIOXIDE 28 MMOL/L (21-32); CHLORIDE 106 MMOL/L (98-107); CREATINE KINASE 582 U/L (30-200); CREATININE SERUM 1.02 MG/DL (0.60-1.30); GFR ESTIMATED 76; GLUCOSE 120 MG/DL (70-105); LIPASE 24 U/L (8-78); MAGNESIUM 2.3 MG/DL (1.6-2.4); SODIUM 144 MMOL/L (135-145); TOTAL PROTEIN 6.8 GM/DL (6.4-8.2)
[2023-04-14] MEDS ORDERED: IOHEXOL 350 MG/ML 100 ML (OMNIPAQUE 350) VIAL IV ONE (21:30)
[2023-04-14] MEDS ORDERED: NS 100 ML (IVPB) BAG IV ONE (21:30)
[2023-04-14 21:35] LABS: TSH (THYROID ANALYZER) 1.67 UIU/ML (0.35-4.94)
--- NOTE | 2023-04-14 21:35 | Diagnostic Imaging Report ---
HISTORY: Weakness. COMPARISON: 03/31/2023. FINDINGS: Frontal view of the chest demonstrates cardiomegaly with mild central vascular congestion. There is no pleural effusion or pneumothorax. Calcified lymph nodes are noted from old granulomatous disease. Sternotomy wires and post-CABG changes are seen. IMPRESSION: Stable cardiomegaly with mild central vascular congestion. Dictated by: Dictated on workstation # [id number]
--- NOTE | 2023-04-14 21:37 | Diagnostic Imaging Report ---
HISTORY: Pelvic pain. TECHNIQUE: Frontal view of the pelvis. COMPARISON: CT from 03/31/2023. FINDINGS: No acute fracture is seen on this single view of the pelvis. Alignment is normal and there are mild degenerative changes in the hip joints. The sacroiliac joints are patent. IMPRESSION: No acute osseous abnormality is seen on this single view of the pelvis. Dictated by: Dictated on workstation # [id number]
--- NOTE | 2023-04-14 21:49 | Diagnostic Imaging Report ---
PROCEDURE: CT head and CT cervical spine without contrast. TECHNIQUE: Multiple contiguous axial images were obtained through the brain and cervical spine without the use of intravenous contrast. Sagittal and coronal reformations through the cervical spine were then performed. Auto Exposure Controls were utilized during the CT exam to meet ALARA standards for radiation dose reduction. INDICATION: Head and neck injury with pain. COMPARISON: CT head from 03/31/2023. FINDINGS: CT HEAD: The ventricles and cortical sulci are prominent, likely from generalized parenchymal volume loss. There is no midline shift or mass effect. No acute intracranial hemorrhage is seen. There is no CT evidence of acute territorial ischemia. The calvarium appears intact. There is mild mucosal thickening in the paranasal sinuses with no fluid level seen. CT CERVICAL SPINE: Alignment of the cervical spine appears normal with no spondylolisthesis. No acute fracture is seen. There is severe degenerative change at C5-C6 and C6-C7. Soft tissues about the cervical spine demonstrate no acute abnormality. There is calcific atherosclerosis. IMPRESSION: 1. No acute intracranial hemorrhage or CT evidence of acute territorial ischemia. 2. Degenerative changes in the cervical spine with no acute fracture seen. Dictated by: Dictated on workstation # [id number]
--- NOTE | 2023-04-14 22:07 | Diagnostic Imaging Report ---
PROCEDURE: CT thoracic and lumbar spine without contrast. TECHNIQUE: Multiple contiguous axial images were obtained through the thoracic and lumbar spine without the use of intravenous contrast. Sagittal and coronal reformations were then performed. All CT scans use one or more of the following dose optimizing techniques: automated exposure control, MA and/or KvP adjustment based on patient size and exam type or iterative reconstruction. INDICATION: Fall, trauma, mid and low back pain. COMPARISON: 03/31/2023. FINDINGS: CT THORACIC SPINE: Alignment of the thoracic spine appears normal with no spondylolisthesis. Subtle height loss at the superior endplate of T2 appears chronic. Mild height loss in the lower thoracic spine appears chronic as well. No acute fracture is seen. There are mild multilevel degenerative changes as well as bridging osteophytes. No bony fragments or hyperdense fluid collection is seen in the spinal canal. CT LUMBAR SPINE: Alignment of the lumbar spine appears normal with no spondylolisthesis. There are cybj-ht-bfidwizu degenerative changes present. No acute fracture is seen. There is an old right L3 transverse process fracture. There are degenerative changes in the sacroiliac joints. There may be a disc bulge at L4-L5 with bilateral foraminal stenosis and spinal canal stenosis. IMPRESSION: 1. Degenerative changes in the thoracic and lumbar spine with no acute fracture seen. 2. Disc bulge at L4-L5 appears to cause spinal canal and foraminal stenosis. Dictated by: Dictated on workstation # [id number]
--- NOTE | 2023-04-14 22:09 | ED General ---
General Chief Complaint: General Problems/Pain Stated Complaint: FALL Nursing Triage Note: pt to room by [facility] from home. ems states pt was discharged from hospital 2 weeks ago and has fallen at home everyday since. ems reports 4 falls today. pt states he has "probably" hit his head at some point but denies LOC. pt denies any pain on arrival. pt is a&ox4, speech normal on arrival. pt and grandaughter at bedside Source of Information: Patient (EXTREMELY POOR HISTORIAN), EMS, Family ( AND GRAND DAUGHTER ARRIVE LATER), Old Records History of Present Illness Date Seen by Provider: Apr 14, 2023 Time Seen by Provider: 20:15 Initial Comments PT ARRIVES VIA EMS FROM HOME IN [facility] REPORT THAT PT REFUSED TO GO TO [facility], DESPITE LIVING LESS THAN 1/2 MILE FROM THAT HOSPITAL, SO BROUGHT PT HERE PT WITH ONGOING GENERALIZED WEAKNESS, AND MULTIPLE FALLS EVERY DAY SYMPTOMS NO DIFFERENT TODAY IN ANY WAY HE HAS FALLEN 4 TIMES TODAY, WITHOUT ANY REPORTED INJURIES WITH ANY OF THESE FALLS. PT WAS SEEN HERE IN ER 03/31/23 FOR THIS SAME COMPLAINT. EXTENSIVE WORK UP AT THAT TIME WAS UNREMARKABLE AND PT WAS DISMISSED TO HOME HE HAS NOT FOLLOWED UP WITH ANYONE SINCE THEN PT DENIES PAIN ANYWHERE DENIES HEADACHE DENIES NECK OR BACK PAIN DENIES DIZZINESS DENIES ABDOMINAL PAIN OR NAUSEA/VOMITING/DIARRHEA DENIES CHEST PAIN DENIES SHORTNESS OF BREATH DENIES ANY URINARY SYMPTOMS Allergies and Home Medications Allergies Coded Allergies: No Known Drug Allergies (Unverified , 04/02/12) Patient Home Medication List Amlodipine Besylate (Amlodipine Besylate) 10 Mg Tablet, 10 MG PO DAILY, (Reported) Entered as Reported by: KVNG CARTAGENA on 05/08/19 0855 Aspirin (Aspir 81) 81 Mg Tablet.dr, 81 MG PO HS, (Reported) Entered as Reported by: JUWAN MACKENZIE on 02/14/18 0847 Cholecalciferol (Vitamin D3) (Vitamin D3) 5,000 Unit Capsule, 5,000 UNIT PO DAILY, (Reported) Entered as Reported by: JUWAN MACKENZIE on 02/14/18 0848 Cinnamon Bark (Cinnamon) 500 Mg Capsule, 500 MG PO BID, (Reported) Entered as Reported by: JUWAN MACKENZIE on 02/14/18 0857 Citalopram Hydrobromide (Citalopram HBr) 20 Mg Tablet, 20 MG PO HS, (Reported) Entered as Reported by: JUWAN MACKENZIE on 02/14/18 0849 Desipramine HCl (Desipramine HCl) 50 Mg Tablet, 50 MG PO DAILY, (Reported) Entered as Reported by: KVNG CARTAGENA on 05/08/19 1051 Finasteride (Finasteride) 5 Mg Tablet, 5 MG PO DAILY, (Reported) Entered as Reported by: KVNG CARTAGENA on 05/08/19 0855 Flaxseed Oil (Flaxseed) 1,000 Mg Capsule, 650 MG PO BID, (Reported) Entered as Reported by: JUWAN MACKENZIE on 02/14/18 0854 Folic Acid (Folic Acid) 0.4 Mg Tablet, 0.8 MG PO DAILY, (Reported) Entered as Reported by: JUWAN MACKENZIE on 02/14/18 0855 Folic Acid (Folic Acid) 0.4 Mg Tablet, 0.4 MG PO HS, (Reported) Entered as Reported by: JUWAN MACKENZIE on 02/14/18 0855 Gemfibrozil (Gemfibrozil) 600 Mg Tablet, 600 MG PO BID, (Reported) Entered as Reported by: KVNG CARTAGENA on 05/08/19 0855 Insulin NPH Hum/Reg Insulin Hm (Novolin 70-30 100 Unit/ml Vial) 100 Unit/1 Ml Vial, 75 UNIT SQ DAILY, (Reported) Entered as Reported by: KVNG CARTAGENA on 05/08/19 0943 Insuln Asp Prt/Insulin Aspart (Novolog Mix 70-30 Vial) 1 Unit/0.01 Ml Susp, 69 UNIT SQ 1800, (Reported) Entered as Reported by: KVNG CARTAGENA on 05/08/19 0943 Isosorbide Mononitrate (Isosorbide Mononitrate ER) 30 Mg Tab.er.24h, 30 MG PO DAILY, (Reported) Entered as Reported by: KVNG CARTAGENA on 05/08/19 0855 Lisinopril (Lisinopril) 40 Mg Tablet, 40 MG PO DAILY, (Reported) Entered as Reported by: KVNG CARTAGENA on 05/08/19 0855 Metoprolol Tartrate (Metoprolol Tartrate) 25 Mg Tablet, 12.5 MG PO BID, (Reported) Entered as Reported by: JUWAN MACKENZIE on 02/14/18 0858 Multivitamin (Multivitamins) 1 Each Tablet, 1 EACH PO DAILY, (Reported) Entered as Reported by: KVNG CARTAGENA on 05/08/19 0943 Rosuvastatin Calcium (Rosuvastatin Calcium) 20 Mg Tablet, 10 MG PO DAILY, (Reported) Entered as Reported by: KVNG CARTAGENA on 05/08/19 0855 Ticagrelor (Brilinta) 90 Mg Tablet, 90 MG PO BID Prescribed by: MIKE BONILLA on 05/09/19 0807 Past Pkxjvlk-Amhmqg-Kyqdmg Hx Past Medical History Surgery/Hospitalization HX: type 2 diabetes, hypertension CABG Respiratory: No Currently Using CPAP: No Currently Using BIPAP: No Cardiac: Yes Coronary Artery Disease, Hypertension Neurological: No Gastrointestinal: No Cancer: Yes (SKIN) Skin What Type of Treatment Did You: Surgical Intervention Physical Exam Vital Signs Vital Signs - First Documented 04/14/23 20:19 Temp 36.7 Pulse 81 Resp 22 B/P (MAP) 142/85 (104) Pulse Ox 95 O2 Delivery Room Air Capillary Refill : Height, Weight, BMI Height: 5'10.00" Weight: 247lbs. 4.0oz. [id number]; 35.00 BMI Method: Focused Exam Lactate Level 04/14/23 20:20: Lactic Acid Level 1.02 Lactic Acid Level Laboratory Tests Test 04/14/23 20:20 Lactic Acid Level 1.02 MMOL/L (0.50-2.00) Progress/Results/Core Measures Suspected Sepsis SIRS Temperature: Pulse: 81 Respiratory Rate: 22 Laboratory Tests 04/14/23 20:20: White Blood Count 10.5 Blood Pressure 142 /85 Mean: 104 04/14/23 20:20: Lactic Acid Level 1.02 Laboratory Tests 04/14/23 20:20: Creatinine 1.02, INR Comment 1.1, Platelet Count 234, Total Bilirubin 0.7 Results/Orders Lab Results Laboratory Tests Test 04/14/23 20:20 04/14/23 20:35 Range/Units White Blood Count 10.5 4.3-11.0 10^3/uL Red Blood Count 5.36 4.30-5.52 10^6/uL Hemoglobin 16.0 13.3-17.7 g/dL Hematocrit 49 40-54 % Mean Corpuscular Volume 91 80-99 fL Mean Corpuscular Hemoglobin 30 25-34 pg Mean Corpuscular Hemoglobin Concent 33 32-36 g/dL Red Cell Distribution Width 14.2 10.0-14.5 % Platelet Count 234 130-400 10^3/uL Mean Platelet Volume 10.4 9.0-12.2 fL Immature Granulocyte % (Auto) 0 % Neutrophils (%) (Auto) 73 42-75 % Lymphocytes (%) (Auto) 15 12-44 % Monocytes (%) (Auto) 7 0-12 % Eosinophils (%) (Auto) 4 0-10 % Basophils (%) (Auto) 1 0-10 % Neutrophils # (Auto) 7.7 1.8-7.8 10^3/uL Lymphocytes # (Auto) 1.6 1.0-4.0 10^3/uL Monocytes # (Auto) 0.7 0.0-1.0 10^3/uL Eosinophils # (Auto) 0.4 H 0.0-0.3 10^3/uL Basophils # (Auto) 0.1 0.0-0.1 10^3/uL Immature Granulocyte # (Auto) 0.0 0.0-0.1 10^3/uL Prothrombin Time 14.1 12.2-14.7 SEC INR Comment 1.1 0.8-1.4 Activated Partial Thromboplast Time 29 24-35 SEC Sodium Level 144 135-145 MMOL/L Potassium Level 4.0 3.6-5.0 MMOL/L Chloride Level 106 98-107 MMOL/L Carbon Dioxide Level 28 21-32 MMOL/L Anion Gap 10 5-14 MMOL/L Blood Urea Nitrogen 27 H 7-18 MG/DL Creatinine 1.02 0.60-1.30 MG/DL Estimat Glomerular Filtration Rate 76 BUN/Creatinine Ratio 26 Glucose Level 120 H 70-105 MG/DL Lactic Acid Level 1.02 0.50-2.00 MMOL/L Calcium Level 9.7 8.5-10.1 MG/DL Corrected Calcium 9.7 8.5-10.1 MG/DL Magnesium Level 2.3 1.6-2.4 MG/DL Total Bilirubin 0.7 0.1-1.0 MG/DL Aspartate Amino Transf (AST/SGOT) 25 5-34 U/L Alanine Aminotransferase (ALT/SGPT) 20 0-55 U/L Alkaline Phosphatase 75 40-136 U/L Ammonia 19 11-32 UMOL/L Total Creatine Kinase 582 H 30-200 U/L Creatine Kinase MB 16.5 *H <6.6 NG/ML Troponin I 0.043 H <0.028 NG/ML Total Protein 6.8 6.4-8.2 GM/DL Albumin 4.0 3.2-4.5 GM/DL Lipase 24 8-78 U/L TSH [place] Testing 1.67 0.35-4.94 UIU/ML Serum Alcohol < 10 <10 MG/DL Influenza Type A (RT-PCR) Not Detected Not Detecte Influenza Type B (RT-PCR) Not Detected Not Detecte SARS-CoV-2 RNA (RT-PCR) Not Detected Not Detecte My Orders Orders - RADHA PEACE DO Ed Iv/Invasive Line Start (04/14/23 20:23) Ekg Tracing (04/14/23 20:23) Catheter(Urinary) Insert & Ass ,15 (04/14/23 20:23) Monitor-Rhythm Ecg Trace Only (04/14/23 20:23) Ct Head/Cervical Spine Wo (04/14/23 20:23) Ct Thoracic/Lumbar Spine Wo (04/14/23 20:23) Chest 1 View, Ap/Pa Only (04/14/23 20:23) Pelvis 1 To 2 Views (04/14/23 20:23) Alcohol (04/14/23 20:23) Ammonia (04/14/23 20:23) Cbc And Automated Diff (04/14/23 20:23) Comprehensive Metabolic Panel (04/14/23 20:23) Creatine Kinase (04/14/23 20:23) Creatine Kinase Mb (04/14/23 20:23) Lactic Acid Analyzer (04/14/23 20:23) Lipase (04/14/23 20:23) Magnesium (04/14/23 20:23) Protime With Inr (04/14/23 20:23) Partial Thromboplastin Time (04/14/23 20:23) Thyroid Analyzer (04/14/23 20:23) Ua Culture If Indicated (04/14/23 20:23) Blood Culture (04/14/23 20:23) Troponin I [place] (04/14/23 20:23) Ed Iv/Invasive Line Start (04/14/23 20:23) Lactated Ringers 1,000 Ml (Lactated Ring (04/14/23 20:30) Lidocaine 2% (Urojet) (Lidocaine 2% (Uro (04/14/23 20:30) Ct Chest/Abdomen/Pelvis W (04/14/23 20:23) Covid 19 Inhouse Test (04/14/23 20:23) Influenza A And B By Pcr (04/14/23 20:23) Iohexol Injection (Omnipaque 350 Mg/Ml 1 (04/14/23 21:30) Ns (Ivpb) 100 Ml (Sodium Chloride 0.9% 1 (04/14/23 21:30) Medications Given in ED Current Medications Medications Dose Ordered Sig/[place] Route Start Time Stop Time Status Last Admin Dose Admin Iohexol 100 ml ONCE ONCE IV 04/14/23 21:30 04/14/23 21:31 DC 04/14/23 21:34 80 ML Lactated Ringer's 1,000 ml @ 0 mls/hr Q0M ONCE IV 04/14/23 20:30 04/14/23 20:31 DC 04/14/23 20:31 999 MLS/HR Sodium Chloride 100 ml ONCE ONCE IV 04/14/23 21:30 04/14/23 21:31 DC 04/14/23 21:34 80 ML Vital Signs/I&O 04/14/23 20:19 Temp 36.7 Pulse 81 Resp 22 B/P (MAP) 142/85 (104) Pulse Ox 95 O2 Delivery Room Air Capillary Refill : Blood Pressure Mean: 104 Departure Impression Primary Impression: Generalized weakness Additional Impressions: Multiple falls HTN (hypertension) IDDM (insulin dependent diabetes mellitus) Departure-Patient Inst. Referrals: NO,LOCAL PHYSICIAN (PCP/Family) Primary Care Physician RADHA PEACE DO Apr 14, 2023 22:09
--- NOTE | 2023-04-14 22:11 | Diagnostic Imaging Report ---
PROCEDURE: CT chest, abdomen, and pelvis with contrast. TECHNIQUE: Multiple contiguous axial images were obtained through the chest, abdomen, and pelvis after the administration of intravenous contrast. Auto Exposure Controls were utilized during the CT exam to meet ALARA standards for radiation dose reduction. INDICATION: Multiple falls, chest and abdomen injuries, congestive heart failure and altered mental status. COMPARISON: CT abdomen and pelvis from 03/31/2023. FINDINGS: CT CHEST: The heart is mildly large. There is no pericardial effusion. Sternotomy wires and post-CABG changes are seen. There is calcific atherosclerosis. No mediastinal adenopathy is seen. There is no axillary adenopathy. There is atelectasis and scarring in the dependent lungs with mild emphysematous changes in the upper lungs. No central endobronchial lesions are seen. No acute osseous abnormality is identified. CT ABDOMEN/PELVIS: The liver demonstrates no focal lesion. Cholecystectomy clips are noted. There are calcified granulomas in the spleen. The pancreas appears to have a cystic lesion at the body measuring 1.6 cm. There is no ductal dilatation. The adrenal glands appear normal in size with a small 5 mm myelolipoma in the left adrenal gland. The kidneys demonstrate normal enhancement of the small cyst seen in the right kidney. The bowel loops are nondistended without obstruction. The appendix is not definitively seen but no secondary findings of appendicitis are identified. No free fluid or free air is seen. There is moderate stool at the rectum. The aorta demonstrates marked atherosclerosis but appears normal in caliber. No lymphadenopathy is seen. No acute osseous abnormality is identified. IMPRESSION: 1. Mild cardiomegaly and mild emphysematous changes with no acute thoracic abnormality seen. 2. Small cystic lesion in the pancreas. Recommend nonemergent MRI with pancreatic protocol and MRCP. 3. Small left adrenal myelolipoma. Dictated by: Dictated on workstation # [id number]
[2023-04-14 22:13] LABS: CREATINE KINASE MB 16.5 NG/ML (<6.6)
[2023-04-14] MEDS ORDERED: hydrALAZINE INJECTION 20 MG/ML VIAL IV ONE (22:30)
[2023-04-14] MEDS ORDERED: FUROSEMIDE INJECTION 40 MG/4 ML VIAL IVP ONE (22:30)
[2023-04-14 22:55] LABS: CLARITY,URINE CLEAR; COLOR,URINE YELLOW
[2023-04-14 22:56] LABS: BACTERIA,URINE TRACE /HPF; BILIRUBIN,URINE NEGATIVE (NEGATIVE); GLUCOSE, URINE (UA) 3+ (NEGATIVE); KETONES,URINE TRACE (NEGATIVE); LEUKOCYTE ESTERASE ,URINE NEGATIVE (NEGATIVE); NITRITE,URINE NEGATIVE (NEGATIVE); PROTEIN,URINE NEGATIVE (NEGATIVE); RBC,URINE 0-2 /HPF; SQUAMOUS EPITHELIAL CELL,UR RARE /HPF; WBC,URINE RARE /HPF
[2023-04-15] VITALS (7 sets, daily range): BP systolic 129–183; BP diastolic 61–85
[2023-04-15] MEDS ORDERED: hydrALAZINE INJECTION 20 MG/ML VIAL IV PRN (02:45)
[2023-04-15] MEDS ORDERED: ACETAMINOPHEN 500 MG TABLET PO PRN (02:45)
[2023-04-15] MEDS ORDERED: ONDANSETRON INJECTION 4 MG/2 ML (SDV) IV PRN ×2 (02:45→11:30)
[2023-04-15] MEDS ORDERED: NS IV 1000 ML 1,000 ML IV SCH (02:45)
[2023-04-15] MEDS: inSUlin ASPART 1 UNIT/0.01 ML (PER UNIT) SC SCH ×4 (06:54→20:38)
[2023-04-15 07:35] LABS: BASOPHILS % (AUTO) 0 % (0-10); EOSINOPHILS # (AUTO) 0.4 10^3/uL (0.0-0.3); EOSINOPHILS % (AUTO) 4 % (0-10); HEMATOCRIT 48 % (40-54); HEMOGLOBIN 15.7 g/dL (13.3-17.7); LYMPHOCYTES # (AUTO) 1.8 10^3/uL (1.0-4.0); LYMPHOCYTES % (AUTO) 18 % (12-44); MEAN CORPUSCULAR HEMOGLOBIN 30 pg (25-34); MEAN CORPUSCULAR HGB CONC 33 g/dL (32-36); MEAN CORPUSCULAR VOLUME 91 fL (80-99); MEAN PLATELET VOLUME 10.3 fL (9.0-12.2); MONOCYTES # (AUTO) 0.7 10^3/uL (0.0-1.0); MONOCYTES % (AUTO) 7 % (0-12); NEUTROPHILS # (AUTO) 6.9 10^3/uL (1.8-7.8); NEUTROPHILS % (AUTO) 70 % (42-75); PLATELET COUNT 219 10^3/uL (130-400); WHITE BLOOD COUNT 9.9 10^3/uL (4.3-11.0)
[2023-04-15 07:45] LABS: POTASSIUM 3.7 MMOL/L (3.6-5.0)
[2023-04-15 07:47] LABS: CALCIUM 9.2 MG/DL (8.5-10.1)
[2023-04-15 07:51] LABS: CREATININE SERUM 0.95 MG/DL (0.60-1.30)
--- NOTE | 2023-04-15 11:21 | Physical Therapy Evaluation ---
PT Evaluation-General Medical Diagnosis Admission Date Apr 15, 2023 at 01:13 Medical Diagnosis: generalized weakness Onset Date: Apr 15, 2023 Therapy Diagnosis Therapy Diagnosis: debility Height/Weight Height (Feet): 5 Height (Inches): 10.00 Weight (Pounds): 247 Weight (Ounces): 4.0 Precautions Precautions/Isolations: Standard Precautions Weight Bear Status Right Lower Extremity: Right Full Weight Bearing Left Lower Extremity: Left Full Weight Bearing Referral Physician: Trang Reason for Referral: Evaluation/Treatment Medical History Pertinent Medical History: CAD, DM, HTN Current History Pt. had multiple fall at home, generalized weakness. Social History Home: Single Level Current Living Status: Spouse Entry Into Home: Stairs With Railing PT Steps Into Home: 4 Prior Prior Level of Function SCALE: Activities may be completed with or without assistive devices. 3-Dtlujeztnx-ughiyma completes the activity by him/herself with no assistance from a helper. 5-Set-up or Clean-up Assistance-helper sets up or cleans up; patient completes activity. [place] assists only prior to or following the activity. 4-Supervision or Touching Assistance-helper provides verbal cues and/or touching/steadying and/or contact guard assistance as patient completes activity. Assistance may be provided throughout the activity or intermittently. 3-Partial/Moderate Assistance-helper does LESS THAN HALF the effort. [place] lifts, holds or supports trunk or limbs, but provides less than half the effort. 2-Substantial/Maximal Assistance-helper does MORE THAN HALF the effort. [place] lifts or holds trunk or limbs and provides more than half the effort. 4-Lhvcxvwof-fnuteb does ALL the effort. Patient does none of the effort to complete the activity. Or, the assistance of 2 or more helpers is required for the patient to complete the activity. If activity was not attempted, code reason: 7-Patient Refused. 9-Not Applicable-not attempted and the patient did not perform the activity before the current illness, exacerbation or injury. 10-Not Attempted due to Environmental Limitations-(lack of equipment, weather restraints, etc.). 88-Not Attempted due to Medical Conditions or Safety Concerns. Bed Mobility: 4 Transfers (B,C,W/C): 4 Gait: 4 Prior Devices Use: Walker PT Evaluation-Current Subjective Pt. difficult to remain alert, refuses ambulation but does agree to sit on side of bed. He has no c/o pain. Spouse and daughter arrive during session and state he fell several times over the last few days and hasn't been able to walk. Pt/Family Goals home with spouse Objective Patient Orientation: Person Attachments: Mckenna Catheter, IV ROM/Strength ROM Upper Extremities WFL ROM Lower Extremities WFL Strength Upper Extremities WFL Strength Lower Extremities Grossly 3+/5 (B) Integumentary/Posture Integumentary grossly intact Bowel Incontinence: No Bladder Incontinence: Mckenna Cath Posture kyphotic Neuromuscular (Tone, Coordination, Reflexes) diminished Sensory Vision: Functional Hearing: Functional Sensation Right Upper Extremit: Intact Sensation Left Upper Extremity: Intact Sensation Right Lower Extremit: Intact Sensation Left Lower Extremity: Intact Transfers Sit to Lying (QC): 4 Lying to Sitting/Side of Bed(Q: 3 Gait Does the Patient Walk?: No and Walking Goal IS indicated Balance Sitting Static: Fair Sitting Dynamic: Fair Assessment/Needs Pt. is a 78 y.o. male with generalized weakness and several recent falls with inability to walk over the last few days. Pt. is mod A with transfers to edge of bed and refuses all attempts to stand/walk even with spouse encouragement. Pt. returned to supine position post session. Pt. would benefit from skilled PT to improve mobility for possibility to return home. Rehab Potential: Fair PT Golf Course Designer Goals Golf Course Designer Goals PT Assisted Goals Time Frame: Apr 22, 2023 Roll Left & Right (QC): 6 Sit to Lying (QC): 6 Lying-Sitting on Side/Bed(QC): 6 Sit to Stand (QC): 6 Chair/Ptn-af-Lnzfh Xfer(QC): 4 Does the Patient Walk: No and Walking Goal IS indicated Walk 10 feet (QC): 4 Walk 50ft with 2 Turns (QC): 4 PT Plan Problem List Problem List: Activity Tolerance, Functional Strength, Safety, Balance, Gait, Transfer, Bed Mobility, ROM Treatment/Plan Treatment Plan: Continue Plan of Care Treatment Plan: Bed Mobility, Concurrent Therapy, Education, Functional Activity Olman, Functional Strength, Gait, Safety, Therapeutic Exercise, Transfers Treatment Duration: Apr 22, 2023 Frequency: 6 times per week Estimated Hrs Per Day: .25 hour per day Patient and/or Family Agrees t: Yes Time Time In: 1030 Time Out: 1046 DATE: Apr 15, 2023 Total Billed Treatment Time: 16 Total Billed Treatment 1, [facility] 16' UMANG CARDOZO PT Apr 15, 2023 11:21
[2023-04-15] MEDS ORDERED: INSU100V52 SQ (11:25)
[2023-04-15] MEDS ORDERED: ISOS60TA63 (11:25)
[2023-04-15] MEDS ORDERED: ZIPR20CA23 (11:25)
[2023-04-15] MEDS ORDERED: MILK OF MAGNESIA 400 MG/5 ML 30 ML UDC PO PRN (11:30)
[2023-04-15] MEDS ORDERED: CALCIUM CARBONATE 500 MG CHEW TABLET PO PRN (11:30)
[2023-04-15] MEDS ORDERED: ANTACID SUSPENSION 30 ML UDC PO PRN (11:30)
[2023-04-15] MEDS ORDERED: LACTULOSE SYRUP 10GM/15ML 30ML UDC PO PRN (11:30)
[2023-04-15] MEDS ORDERED: ONDANSETRON 4 MG ORAL DISSOLVE TABLET PO PRN (11:30)
[2023-04-15] MEDS ORDERED: BISACODYL 10 MG SUPPOSITORY PR PRN (11:30)
[2023-04-15] MEDS: amLODIPine 5 MG TABLET PO SCH (11:56)
[2023-04-15] MEDS: meTOprolol TARTRATE (IR) 25 MG TABLET PO SCH ×2 (11:56→21:19)
[2023-04-15] MEDS: ENOXAPARIN 40 MG/0.4 ML SYRINGE SC SCH (11:57)
--- NOTE | 2023-04-15 12:22 | Consultation-Cardiology ---
HPI-Cardiology Cardiology Consultation: Date of Consultation 04/15/23 Date of Admission Attending Physician Kiersten,Local Physician Admitting Physician Admitting Physician: Ying Costello MD Attending Physician: Ying Costello MD Consulting Physician Reva CLINTON MD HPI: Time Seen by a Provider: 12:22 Chief Complaint: lower extremity swelling This is a 78 year old gentleman with history of vabg and history of PCI. last PCI was with Dr Mitchell in 2019. he presents with lower extremity swelling. Review of Systems-Cardiology Review of Systems Constitutional: malaise Eyes: no symptoms reported Ears/Nose/Throat: no symptoms reported Respiratory: no symptoms reported Cardiovascular: edema Gastrointestinal: no symptoms reported Genitourinary: no symptoms reported Musculoskeletal: no symptoms reported Skin: no symptoms reported Psychiatric/Neurological: depression Hematologic: no symptoms reported KWP-Vktapd-Jihajx Hx Patient Social History Alcohol Use?: No Pt feels they are or have been: No Immunizations Up To Date Date of Pneumonia Vaccine: Feb 03, 2013 Date of Influenza Vaccine: Mar 06, 2023 Past Medical History PMH As described under Assessment. Allergies and Home Medications Allergies Coded Allergies: No Known Drug Allergies (Unverified , 04/02/12) Patient Home Medication List Home Medication List Reviewed: Yes Amlodipine Besylate (Amlodipine Besylate) 10 Mg Tablet, 5 MG PO DAILY, (Reported) Entered as Reported by: KVNG CARTAGENA on 05/08/19 0855 Last Action: Edited Cholecalciferol (Vitamin D3) (Vitamin D3) 5,000 Unit Capsule, 125 MG PO DAILY, (Reported) Entered as Reported by: JUWAN MACKENZIE on 02/14/18 0848 Last Action: Edited Cinnamon Bark (Cinnamon) 500 Mg Capsule, 2 CAP PO BID, (Reported) Entered as Reported by: JUWAN MACKENZIE on 02/14/18 0857 Last Action: Edited Citalopram Hydrobromide (Citalopram HBr) 20 Mg Tablet, 0.5 TAB PO HS, (Reported) Entered as Reported by: JUWAN MACKENZIE on 02/14/18 0849 Last Action: Edited Desipramine HCl (Desipramine HCl) 50 Mg Tablet, 10 MG PO DAILY, (Reported) Entered as Reported by: KVNG CARTAGENA on 05/08/19 1051 Last Action: Edited Finasteride (Finasteride) 5 Mg Tablet, 5 MG PO DAILY, (Reported) Entered as Reported by: KVNG CARTAGENA on 05/08/19854 Last Action: Reviewed Flaxseed Oil (Flaxseed) 1,000 Mg Capsule, 650 MG PO BID, (Reported) Entered as Reported by: JUWAN MACKENZIE on 02/14/18 0854 Last Action: Reviewed Folic Acid (Folic Acid) 0.4 Mg Tablet, 0.4 MG PO HS, (Reported) Entered as Reported by: JUWAN MACKENZIE on 02/14/18854 Last Action: Reviewed Insulin Glargine,Hum.rec.anlog (Insulin Glargine) 100 Unit/Ml Vial, 65 UNITS DAILY, (Reported) Entered as Reported by: Beverly Goldman on 04/15/231124 Last Action: New Order Isosorbide Mononitrate (Isosorbide Mononitrate ER) 30 Mg Tab.er.24h, 30 MG PO DAILY, (Reported) Entered as Reported by: KVNG CARTAGENA on 05/08/19854 Isosorbide Mononitrate (Isosorbide Mononitrate ER) 60 Mg Tab, 1 TAB DAILY, (Reported) Entered as Reported by: Beverly Goldman on 04/15/231124 Last Action: New Order Lisinopril (Lisinopril) 40 Mg Tablet, 40 MG PO DAILY, (Reported) Entered as Reported by: KVNG CARTAGENA on 05/08/19854 Metoprolol Tartrate (Metoprolol Tartrate) 25 Mg Tablet, 12.5 MG PO BID, (Reported) Entered as Reported by: JUWAN MACKENZIE on 02/14/18 08 Multivitamin (Multivitamins) 1 Each Tablet, 1 EACH PO DAILY, (Reported) Entered as Reported by: KVNG CARTAGENA on 05/08/19 0943 Rosuvastatin Calcium (Rosuvastatin Calcium) 20 Mg Tablet, 10 MG PO DAILY, (Reported) Entered as Reported by: KVNG CARTAGENA on 05/08/19 08 Ticagrelor (Brilinta) 90 Mg Tablet, 90 MG PO BID Prescribed by: MIKE MITCHELL on 05/09/19 08 Ziprasidone HCl (Geodon) 20 Mg Capsule, 20 MG BID, (Reported) Entered as Reported by: Beverly Goldman on 04/15/23 1125 Last Action: New Order Discontinued Medications Aspirin (Aspir 81) 81 Mg Tablet.dr, 81 MG PO HS, (Reported) Discontinued Reason: No Longer Taking Entered as Reported by: JUWAN MACKENZIE on 02/14/18 0847 Last Action: Discontinued Folic Acid (Folic Acid) 0.4 Mg Tablet, 0.8 MG PO DAILY, (Reported) Discontinued Reason: No Longer Taking Entered as Reported by: JUWAN MACKENZIE on 02/14/18854 Last Action: Discontinued Gemfibrozil (Gemfibrozil) 600 Mg Tablet, 600 MG PO BID, (Reported) Discontinued Reason: No Longer Taking Entered as Reported by: KVNG CARTAGENA on 05/08/19854 Last Action: Discontinued Insulin NPH Hum/Reg Insulin Hm (Novolin 70-30 100 Unit/ml Vial) 100 Unit/1 Ml Vial, 75 UNIT SQ DAILY, (Reported) Discontinued Reason: No Longer Taking Entered as Reported by: KVNG CARTAGENA on 05/08/19942 Last Action: Discontinued Insuln Asp Prt/Insulin Aspart (Novolog Mix 70-30 Vial) 1 Unit/0.01 Ml Susp, 69 UNIT SQ 1800, (Reported) Discontinued Reason: No Longer Taking Entered as Reported by: KVNG CARTAGENA on 05/08/19942 Last Action: Discontinued Exam Vital Signs Vital Signs Date Time Temp Pulse Resp B/P (MAP) Pulse Ox O2 Delivery O2 Flow Rate FiO2 04/15/23 15:18 36.7 73 18 178/75 (109) 94 Room Air Physical Exam constitutional - no significant respiratory distress Chest - clear cvs- RRR mild peripheral edema Labs Laboratory Tests Test 04/14/23 20:20 04/14/23 20:35 04/14/23 22:38 04/15/23 06:42 Range/Units White Blood Count 10.5 4.3-11.0 10^3/uL Red Blood Count 5.36 4.30-5.52 10^6/uL Hemoglobin 16.0 13.3-17.7 g/dL Hematocrit 49 40-54 % Mean Corpuscular Volume 91 80-99 fL Mean Corpuscular Hemoglobin 30 25-34 pg Mean Corpuscular Hemoglobin Concent 33 32-36 g/dL Red Cell Distribution Width 14.2 10.0-14.5 % Platelet Count 234 130-400 10^3/uL Mean Platelet Volume 10.4 9.0-12.2 fL Immature Granulocyte % (Auto) 0 % Neutrophils (%) (Auto) 73 42-75 % Lymphocytes (%) (Auto) 15 12-44 % Monocytes (%) (Auto) 7 0-12 % Eosinophils (%) (Auto) 4 0-10 % Basophils (%) (Auto) 1 0-10 % Neutrophils # (Auto) 7.7 1.8-7.8 10^3/uL Lymphocytes # (Auto) 1.6 1.0-4.0 10^3/uL Monocytes # (Auto) 0.7 0.0-1.0 10^3/uL Eosinophils # (Auto) 0.4 H 0.0-0.3 10^3/uL Basophils # (Auto) 0.1 0.0-0.1 10^3/uL Immature Granulocyte # (Auto) 0.0 0.0-0.1 10^3/uL Prothrombin Time 14.1 12.2-14.7 SEC INR Comment 1.1 0.8-1.4 Activated Partial Thromboplast Time 29 24-35 SEC Sodium Level 144 135-145 MMOL/L Potassium Level 4.0 3.6-5.0 MMOL/L Chloride Level 106 98-107 MMOL/L Carbon Dioxide Level 28 21-32 MMOL/L Anion Gap 10 5-14 MMOL/L Blood Urea Nitrogen 27 H 7-18 MG/DL Creatinine 1.02 0.60-1.30 MG/DL Estimat Glomerular Filtration Rate 76 BUN/Creatinine Ratio 26 Glucose Level 120 H 70-105 MG/DL Lactic Acid Level 1.02 0.50-2.00 MMOL/L Calcium Level 9.7 8.5-10.1 MG/DL Corrected Calcium 9.7 8.5-10.1 MG/DL Magnesium Level 2.3 1.6-2.4 MG/DL Total Bilirubin 0.7 0.1-1.0 MG/DL Aspartate Amino Transf (AST/SGOT) 25 5-34 U/L Alanine Aminotransferase (ALT/SGPT) 20 0-55 U/L Alkaline Phosphatase 75 40-136 U/L Ammonia 19 11-32 UMOL/L Total Creatine Kinase 582 H 30-200 U/L Creatine Kinase MB 16.5 *H <6.6 NG/ML Troponin I 0.043 H <0.028 NG/ML B-Type Natriuretic Peptide 182.3 H <100.0 PG/ML Total Protein 6.8 6.4-8.2 GM/DL Albumin 4.0 3.2-4.5 GM/DL Lipase 24 8-78 U/L TSH Burt Testing 1.67 0.35-4.94 UIU/ML Serum Alcohol < 10 <10 MG/DL Influenza Type A (RT-PCR) Not Detected Not Detecte Influenza Type B (RT-PCR) Not Detected Not Detecte SARS-CoV-2 RNA (RT-PCR) Not Detected Not Detecte Urine Color YELLOW Urine Clarity CLEAR Urine pH 5.0 5-9 Urine Specific [place] 1.025 H 1.016-1.022 Urine Protein NEGATIVE NEGATIVE Urine Glucose (UA) 3+ H NEGATIVE Urine Ketones TRACE H NEGATIVE Urine Nitrite NEGATIVE NEGATIVE Urine Bilirubin NEGATIVE NEGATIVE Urine Urobilinogen 0.2 < = 1.0 MG/DL Urine Leukocyte Esterase NEGATIVE NEGATIVE Urine RBC (Auto) TRACE H NEGATIVE Urine RBC 0-2 /HPF Urine WBC RARE /HPF Urine Squamous Epithelial Cells RARE /HPF Urine Crystals NONE /LPF Urine Bacteria TRACE /HPF Urine Casts NONE /LPF Urine Mucus NEGATIVE /LPF Urine Culture Indicated NO Glucometer 129 H 70-110 MG/DL Test 04/15/23 07:26 04/15/23 11:07 04/15/23 16:08 Range/Units White Blood Count 9.9 4.3-11.0 10^3/uL Red Blood Count 5.28 4.30-5.52 10^6/uL Hemoglobin 15.7 13.3-17.7 g/dL Hematocrit 48 40-54 % Mean Corpuscular Volume 91 80-99 fL Mean Corpuscular Hemoglobin 30 25-34 pg Mean Corpuscular Hemoglobin Concent 33 32-36 g/dL Red Cell Distribution Width 14.3 10.0-14.5 % Platelet Count 219 130-400 10^3/uL Mean Platelet Volume 10.3 9.0-12.2 fL Immature Granulocyte % (Auto) 0 % Neutrophils (%) (Auto) 70 42-75 % Lymphocytes (%) (Auto) 18 12-44 % Monocytes (%) (Auto) 7 0-12 % Eosinophils (%) (Auto) 4 0-10 % Basophils (%) (Auto) 0 0-10 % Neutrophils # (Auto) 6.9 1.8-7.8 10^3/uL Lymphocytes # (Auto) 1.8 1.0-4.0 10^3/uL Monocytes # (Auto) 0.7 0.0-1.0 10^3/uL Eosinophils # (Auto) 0.4 H 0.0-0.3 10^3/uL Basophils # (Auto) 0.0 0.0-0.1 10^3/uL Immature Granulocyte # (Auto) 0.0 0.0-0.1 10^3/uL Sodium Level 142 135-145 MMOL/L Potassium Level 3.7 3.6-5.0 MMOL/L Chloride Level 105 98-107 MMOL/L Carbon Dioxide Level 27 21-32 MMOL/L Anion Gap 10 5-14 MMOL/L Blood Urea Nitrogen 20 H 7-18 MG/DL Creatinine 0.95 0.60-1.30 MG/DL Estimat Glomerular Filtration Rate 82 BUN/Creatinine Ratio 21 Glucose Level 138 H 70-105 MG/DL Calcium Level 9.2 8.5-10.1 MG/DL Troponin I 0.041 H <0.028 NG/ML Glucometer 121 H 99 70-110 MG/DL ECG Impression ECG Initial ECG Rhythm: Normal Sinus Comment RBBB, LPFB, LVH A/P-Cardiology Assessment/Admission Diagnosis Lower extremity swelling, CAD, HTN lipids Type 2 OH Mildly elevated BNP Plan Lower extremity swelling - check Echo Mild BNP elevation - unlikely florid CHF. Coronary artery disease, no chest pain. mildly positive troponin - likely type II OH. multiple intervention the past, cardiac catheterization showed severe instent restenosis in the proximal LAD successful balloon angioplasty, has disease in the mid to distal LAD, findings described below 1. Severe in-stent restenosis in the mid LAD with successful balloon angioplasty using emerge 3 x 20 mm balloon with excellent results. 2. Mild to moderate disease in the circumflex artery 3. 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 Mildly elevated left ventricular end-diastolic pressure of 20 5. Known occluded OKEEFE and 2 vein grafts Severe hypertension, restart anti hypertensives. Hyperlipidemia Reva CLINTON MD Apr 15, 2023 12:22
[2023-04-15] MEDS: ZIPRASIDONE 20 MG CAPSULE PO SCH (17:11)
--- NOTE | 2023-04-15 18:57 | History & Physical-Hospitalist ---
History of Present Illness HPI/Chief Complaint Sven Rosas is a 78 year old male with PMH HTN, T2DM, HLD, CAD, BPH, obesity, who presented with weakness. He reportedly fell several times at home. He is a poor historian. His and daughter are at the bedside and help with the history. He appears apathetic. He denies chest pain. He denies shortness of breath. He has no complaints. When asked what his name is, he responded "I'm nobody". He was either unable or unwilling to answer other orientation questions. He reportedly has dementia. I asked his about his code status and what we would do if his heart stopped beating and he interjected "nothing". She said that has always been his stance and all were in agreement to respect his wishes. He has food at the bedside but he does not want to eat. He did not get up with therapy. He is wanting to sleep. Source: patient, family Exam Limitations: clinical condition Date Seen 04/15/23 Time Seen by a Provider: 11:25 Attending Physician No,Local Physician PCP Admitting Physician: Ying Jiménez MD Attending Physician: Ying Jiménez MD Referring Physician Date of Admission Apr 15, 2023 at 11:46 Home Medications & Allergies Home Medications Reviewed patient Home Medication Reconciliation performed by pharmacy medication reconciliations camera repair technician and/or nursing. Patients Allergies have been reviewed. Allergies Allergies Coded Allergies No Known Drug Allergies (Uazkmelxsd83/29/12) Past Wprxefr-Obiewp-Hvghlp Hx Patient Social History Tobacco Use?: No Use of E-Cig and/or Vaping dev: No Substance use?: No Alcohol Use?: No Pt feels they are or have been: No Immunizations Up To Date Date of Influenza Vaccine: Mar 06, 2023 Date of Pneumonia Vaccine: Feb 03, 2013 Current Status Advance Directives: Yes Advance Directive Location: Family to bring in copy Communicates: Verbally Primary Language: Zimbabwean Preferred Spoken Language: Zimbabwean Is interpretation needed?: No Implanted or Applied Medical D: Stents Past Medical History Surgeries: CABG Currently Using CPAP: No Currently Using BIPAP: No Coronary Artery Disease, Hypertension Skin What Type of Treatment Did You: Surgical Intervention Family Medical History No Pertinent Family Hx Review of Systems Constitutional: weakness Respiratory: no symptoms reported Cardiovascular: no symptoms reported Gastrointestinal: no symptoms reported Physical Exam Physical Exam Vital Signs Vital Signs - First Documented 04/14/23 20:19 Temp 36.7 Pulse 81 Resp 22 B/P (MAP) 142/85 (104) Pulse Ox 95 O2 Delivery Room Air Capillary Refill : Height, Weight, BMI Height: 5'10.00" Weight: 247lbs. 4.0oz. [id number]; 36.11 BMI Method: General Appearance: No Apparent Distress, Obese Eyes: Right Eye Normal Inspection, Right Eye PERRL HEENT: PERRL/EOMI, Pharynx Normal, Moist Mucous Membranes Neck: Normal Inspection, Supple Respiratory: Lungs Clear, Normal Breath Sounds, No Respiratory Distress Cardiovascular: Regular Rate, Rhythm, No Edema, No Murmur Gastrointestinal: Normal Bowel Sounds, Non Tender, Soft Extremity: Normal Inspection, Non Tender, Pedal Edema Neurologic/Psychiatric: Alert, Depressed Affect (flat affect, apathetic), Motor Weakness Skin: Normal Color, Warm/Dry Results Results/Procedures Labs Laboratory Tests 04/14/23 20:20 04/15/23 07:26 Patient resulted labs reviewed. Imaging: Reviewed Imaging Report Assessment/Plan Admission Diagnosis NSTEMI Admission Status: Inpatient Order (span 2 midnights) Reason for Inpatient Admission: Weakness Assessment and Plan NSTEMI CAD Troponin mildly elevated Cardiology consulted Echo ordered Lipid panel Aspirin [place] Debility PT/OT Apathy Depression Dementia with hallucinations Citalopram Ziprasidone Trazodone T2DM Levemir, decreased dose Sliding scale insulin HTN HLD BPH Obesity Continue home meds as able DVT prophylaxis: Lovenox Diagnosis/Problems Diagnosis/Problems (1) NSTEMI (non-ST elevation myocardial infarction) Status: Acute (2) CAD (coronary artery disease) Status: Chronic (3) HLD (hyperlipidemia) Status: Chronic (4) T2DM (type 2 diabetes mellitus) Status: Chronic Qualifiers: Diabetes mellitus halfway insulin use: with halfway use Diabetes mellitus complication status: without complication Qualified Codes: E11.9 - Type 2 diabetes mellitus without complications; Z79.4 - detention (current) use of insulin (5) Hallucinations Status: Chronic (6) Apathetic behavior due to dementia Status: Acute (7) Multiple falls Status: Acute (8) HTN (hypertension) Status: Chronic (9) Generalized weakness Status: Acute (10) Obesity Status: Chronic (11) Dementia Status: Chronic YING JIMÉNEZ MD Apr 15, 2023 18:57
[2023-04-15 19:24] LABS: CHOLESTEROL 219 MG/DL (< 200); HDL CHOLESTEROL 36 MG/DL (40-60); TRIGLYCERIDES 149 MG/DL (<150); VLDL CHOLESTEROL 30 MG/DL (5-40)
[2023-04-15] MEDS: DOCUSATE SODIUM 100 MG CAPSULE PO SCH (20:48)
[2023-04-15] MEDS: SENNOSIDES 8.6 MG TABLET PO SCH (20:48)
[2023-04-15] MEDS ORDERED: inSUlin DETERMIR 1 UNIT/0.01 ML (CHARGE PER UNIT) SQ SCH (21:00)
[2023-04-15] MEDS: traZODone 50 MG (DESYREL) TAB PO SCH (21:19)
[2023-04-15] MEDS: inSUlin DETERMIR 1 UNIT/0.01 ML (CHARGE PER UNIT) SQ SCH (21:19)
[2023-04-16 03:24] VITALS: BP 178/75
[2023-04-16] MEDS: inSUlin ASPART 1 UNIT/0.01 ML (PER UNIT) SC SCH ×4 (04:46→20:36)
[2023-04-16 08:00] VITALS: BP 177/77
[2023-04-16] MEDS: ZIPRASIDONE 20 MG CAPSULE PO SCH ×2 (08:11→17:31)
[2023-04-16] MEDS: meTOprolol TARTRATE (IR) 25 MG TABLET PO SCH ×2 (08:12→20:41)
[2023-04-16] MEDS: amLODIPine 5 MG TABLET PO SCH (08:13)
[2023-04-16] MEDS: ISOSORBIDE MONONITRATE 60 MG TABLET PO SCH (08:13)
[2023-04-16] MEDS: ASPIRIN 81 MG CHEWABLE TABLET PO SCH (08:13)
[2023-04-16] MEDS: CITALOPRAM 20 MG TABLET PO SCH (08:13)
[2023-04-16] MEDS: FINASTERIDE 5 MG TABLET PO SCH (08:15)
[2023-04-16] MEDS: EMPAGLIFLOZIN 10 MG TABLET PO SCH (08:15)
[2023-04-16] MEDS: SENNOSIDES 8.6 MG TABLET PO SCH ×2 (08:22→20:36)
[2023-04-16] MEDS: DOCUSATE SODIUM 100 MG CAPSULE PO SCH ×2 (08:22→20:35)
[2023-04-16] MEDS ORDERED: POTASSIUM CHLORIDE 20 MEQ TABLET PO ONE (09:00)
[2023-04-16] MEDS ORDERED: amLODIPine 5 MG TABLET PO NR (09:00)
[2023-04-16] MEDS ORDERED: meTOprolol TARTRATE (IR) 25 MG TABLET PO NR (09:00)
[2023-04-16] MEDS ORDERED: meTOprolol TARTRATE (IR) 25 MG TABLET PO SCH (09:00)
--- NOTE | 2023-04-16 11:06 | Cardiology Progress Note ---
Cardiology SOAP Progress Note Subjective: Feeling better today. Objective: I&O/Vital Signs 04/15/23 04/16/23 04/16/23 04/16/23 23:54 01:00 03:24 07:00 Temp 36.8 36.2 Pulse 79 72 67 72 Resp 18 18 B/P (MAP) 168/85 (112) 178/75 (109) Pulse Ox 91 93 O2 Delivery Room Air Room Air 04/16/23 04/16/23 08:00 08:00 Temp 36.4 Pulse 72 Resp 18 B/P (MAP) 177/77 (110) Pulse Ox 92 O2 Delivery Room Air Room Air 04/15/23 23:59 Intake Total 1620 ml Balance 1620 ml Weight (Pounds): 247 Weight (Ounces): 4.0 Weight (Calculated Kilograms): [id number] Constitutional: AAO x 3 Respiratory: No accessory muscle use, No respiratory distress; lungs clear to auscultation Cardiovascular: regular rate-rhythm, S1 and S2 Gastrointestional: soft Neurologic/Psychiatric: no motor/sensory deficits, alert, normal mood/affect, oriented x 3 Results/Procedures: Labs Laboratory Tests 04/15/23 11:07: Glucometer 121H 04/15/23 16:08: Glucometer 99 04/15/23 20:26: Glucometer 176H 04/16/23 04:46: Glucometer 147H Microbiology 04/14/23 Blood Culture - Preliminary, Resulted A/P: Assessment/Dx: Lower extremity swelling, CAD, HTN lipids Type 2 AR Mildly elevated BNP Plan: Lower extremity swelling - check Echo Mild BNP elevation - unlikely florid CHF. Coronary artery disease, no chest pain. mildly positive troponin - likely type II AR. multiple intervention the past, cardiac catheterization showed severe instent restenosis in the proximal LAD successful balloon angioplasty, has disease in the mid to distal LAD, findings described below 1. Severe in-stent restenosis in the mid LAD with successful balloon angioplasty using emerge 3 x 20 mm balloon with excellent results. 2. Mild to moderate disease in the circumflex artery 3. 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 Mildly elevated left ventricular end-diastolic pressure of 20 5. Known occluded OKEEFE and 2 vein grafts Severe hypertension, restart anti hypertensives. Hyperlipidemia Agree with aggressive physical therapy and placement. Focused Exam Lactate Level 04/14/23 20:20: Lactic Acid Level 1.02 Reva CLINTON MD Apr 16, 2023 11:06
[2023-04-16 11:10] VITALS: BP 121/57
[2023-04-16] MEDS: ENOXAPARIN 40 MG/0.4 ML SYRINGE SC SCH (11:59)
[2023-04-16 15:48] VITALS: BP 157/73
[2023-04-16 19:24] VITALS: BP 148/65
--- NOTE | 2023-04-16 19:35 | Progress Note - Hospitalist ---
Subjective HPI/CC On Admission Date Seen by Provider: Apr 16, 2023 Time Seen by Provider: 10:30 Sven Rosas is a 78 year old male with PMH HTN, T2DM, HLD, CAD, BPH, obesity, who presented with weakness. He reportedly fell several times at home. He is a poor historian. His and daughter are at the bedside and help with the history. He appears apathetic. He denies chest pain. He denies shortness of breath. He has no complaints. When asked what his name is, he responded "I'm nobody". He was either unable or unwilling to answer other orientation questions. He reportedly has dementia. I asked his about his code status and what we would do if his heart stopped beating and he interjected "nothing". She said that has always been his stance and all were in agreement to respect his wishes. He has food at the bedside but he does not want to eat. He did not get up with therapy. He is wanting to sleep. Subjective/Events-last exam He is up moving from the chair to the bed. He is more awake today. He denies pain. He denies shortness of breath. He has no complaints. Focused Exam Lactate Level 04/14/23 20:20: Lactic Acid Level 1.02 Objective Exam Vital Signs Vital Signs Date Time Temp Pulse Resp B/P (MAP) Pulse Ox O2 Delivery O2 Flow Rate FiO2 04/16/23 19:24 36.5 75 18 148/65 (92) 97 Room Air Capillary Refill : General Appearance: No Apparent Distress, Chronically ill, Obese Respiratory: Lungs Clear, No Respiratory Distress Cardiovascular: Regular Rate, Rhythm, No Murmur Gastrointestinal: Normal Bowel Sounds, Soft Extremity: Normal Inspection, Pedal Edema, Swelling Neurologic/Psychiatric: Alert, Normal Mood/Affect Skin: Normal Color, Warm/Dry Results/Procedures Lab Patient resulted labs reviewed. Imaging: Reviewed Imaging Report Assessment/Plan Assessment and Plan Assess & Plan/Chief Complaint NSTEMI CAD Troponin mildly elevated Cardiology following Echo ordered Aspirin Falls Debility PT/OT Apathy Depression Dementia with hallucinations Citalopram Ziprasidone Trazodone T2DM Levemir, decreased dose Sliding scale insulin HTN HLD BPH Obesity Continue home meds as able DVT prophylaxis: Lovenox Diagnosis/Problems Diagnosis/Problems (1) NSTEMI (non-ST elevation myocardial infarction) Status: Acute (2) CAD (coronary artery disease) Status: Chronic (3) HLD (hyperlipidemia) Status: Chronic (4) T2DM (type 2 diabetes mellitus) Status: Chronic Qualifiers: Diabetes mellitus terminal manager insulin use: with terminal manager use Diabetes mellitus complication status: without complication Qualified Codes: E11.9 - Type 2 diabetes mellitus without complications; Z79.4 - detention (current) use of insulin (5) Hallucinations Status: Chronic (6) Apathetic behavior due to dementia Status: Acute (7) Multiple falls Status: Acute (8) HTN (hypertension) Status: Chronic (9) Generalized weakness Status: Acute (10) Obesity Status: Chronic (11) Dementia Status: Chronic MAURISIO JIMÉNEZ MD Apr 16, 2023 19:34
[2023-04-16] MEDS: inSUlin DETERMIR 1 UNIT/0.01 ML (CHARGE PER UNIT) SQ SCH (20:40)
[2023-04-16] MEDS: MELATONIN 3 MG TABLET PO PRN (20:41)
[2023-04-16] MEDS: traZODone 50 MG (DESYREL) TAB PO SCH (20:41)
[2023-04-16] MEDS: ACETAMINOPHEN 325 MG TABLET PO PRN (20:41)
[2023-04-16 23:14] VITALS: BP 148/74
[2023-04-17 03:46] VITALS: BP 124/74
[2023-04-17] MEDS: inSUlin ASPART 1 UNIT/0.01 ML (PER UNIT) SC SCH ×4 (05:39→20:23)
[2023-04-17 08:17] VITALS: BP 176/76
[2023-04-17] MEDS: ISOSORBIDE MONONITRATE 60 MG TABLET PO SCH (08:49)
[2023-04-17] MEDS: amLODIPine 10 MG TABLET PO SCH (08:50)
[2023-04-17] MEDS: CITALOPRAM 20 MG TABLET PO SCH (08:50)
[2023-04-17] MEDS: EMPAGLIFLOZIN 10 MG TABLET PO SCH (08:50)
[2023-04-17] MEDS: DOCUSATE SODIUM 100 MG CAPSULE PO SCH ×2 (08:50→19:57)
[2023-04-17] MEDS: meTOprolol TARTRATE (IR) 25 MG TABLET PO SCH ×2 (08:50→19:54)
[2023-04-17] MEDS: ASPIRIN 81 MG CHEWABLE TABLET PO SCH (08:50)
[2023-04-17] MEDS: FINASTERIDE 5 MG TABLET PO SCH (08:50)
[2023-04-17] MEDS: ZIPRASIDONE 20 MG CAPSULE PO SCH ×2 (08:50→17:42)
[2023-04-17] MEDS: SENNOSIDES 8.6 MG TABLET PO SCH ×2 (08:50→19:58)
[2023-04-17] MEDS ORDERED: ALOG25TA2 PO (09:33)
[2023-04-17] MEDS ORDERED: EMPA25TA PO (09:33)
[2023-04-17] MEDS ORDERED: CALC-250 PO (09:33)
[2023-04-17] MEDS ORDERED: TRZ50T PO (09:33)
[2023-04-17] MEDS ORDERED: MELA3TAB39 PO (09:33)
[2023-04-17] MEDS ORDERED: PROSTAGENIX PO (09:33)
[2023-04-17] MEDS ORDERED: LUTE1CAP PO (09:33)
[2023-04-17] MEDS ORDERED: FLAX1CAP4 PO (09:33)
[2023-04-17] MEDS ORDERED: AMLO-251 PO (09:33)
[2023-04-17] MEDS ORDERED: AMLO-250 PO (09:41)
[2023-04-17 10:13] VITALS: BP 144/65
--- NOTE | 2023-04-17 10:22 | Cardiology Progress Note ---
Subjective Date Seen by Provider: Apr 17, 2023 Time Seen by Provider: 08:50 Subjective/Events-last exam Patient is sitting up in bed, denies any chest pain. C/o peripheral edema Focused Exam Lactate Level 04/14/23 20:20: Lactic Acid Level 1.02 Objective-Cardiology Exam Last Set of Vital Signs Vital Signs 04/17/23 04/17/23 04/17/23 08:00 08:17 10:13 Temp 36.2 Pulse 73 Resp 19 B/P (MAP) 144/65 (91) Pulse Ox 92 O2 Delivery Room Air I&O Intake and Output 04/16/23 23:59 Intake Total 1650 ml Balance 1650 ml Intake Oral 1650 ml # Voids 10 General: Alert, Oriented X3, Cooperative HEENT: Atraumatic, PERRLA Lungs: Clear to Auscultation, Normal Air Movement Heart: Regular Rate, Normal S1, Normal S2 Abdomen: Soft Extremities: Other (+1 edema BLE) Skin: No Rashes, No Significant Lesion Neuro: Normal Speech Psych/Mental Status: Other (flat affect) A/P-Cardiology Admission Diagnosis Generalized debility/weakness CAD HTN DM Assessment/Plan Generalized debility/weakness, continue PT/OT Mildly elevated troponin, likely type II MT. EKG shows no acute ST changes, I will evaluate 2D Echo Mild BNP elevation, evaluate 2D echo Coronary artery disease, history of CABG, no chest pain. mildly positive troponin - likely type II MT. multiple intervention the past, cardiac catheterization in 2019 with severe in- stent restenosis in the mid LAD with successful balloon angioplasty using emerge 3 x 20 mm balloon with excellent results. Mild to moderate disease in the circumflex artery. 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 Mildly elevated left ventricular end-diastolic pressure of 20. Known occluded OKEEFE and 2 vein grafts Severe hypertension, better controlled, continue to monitor. Hyperlipidemia, continue to monitor. DM, management per medical services. Depression Dementia Supervisory-Addendum Brief Supervisory Addendum Participated in pt care: history, MDM, physical Personally performed: exam, history, MDM Care discussed with: CORA Results interpretation: Verified all documentation Notes: Patient was seen and evaluated with Toni, examination performed, management plan was discussed, agree with the current scribed note, I made few changes to the note using Italic font Patient is laying down in bed, no new complain. No chest pain. Continue current medication, monitor blood pressure TONI MUNOZ PA-C Apr 17, 2023 10:22 MIKE BONILLA MD Apr 17, 2023 11:12
[2023-04-17 11:31] VITALS: BP 107/54
--- NOTE | 2023-04-17 11:51 | Physical Therapy Daily Note ---
PT Daily Note-Current Subjective Patient agrees to therapy. Family present and very attentive. Pain Section J - Health Conditions 1. Rarely or not at all 2. Occasionally 3. Frequently 4. Almost constantly 8. Unable to answer Pain Effect on Sleep: 2 Pain Interference with Therapy: 2 Pain Interference w/Day-to-Day: 2 Transfers SCALE: Activities may be completed with or without assistive devices. 9-Lyeipdbfag-njorcho completes the activity by him/herself with no assistance from a helper. 5-Set-up or Clean-up Assistance-helper sets up or cleans up; patient completes activity. [place] assists only prior to or following the activity. 4-Supervision or Touching Assistance-helper provides verbal cues and/or touching/steadying and/or contact guard assistance as patient completes activity. Assistance may be provided throughout the activity or intermittently. 3-Partial/Moderate Assistance-helper does LESS THAN HALF the effort. [place] lifts, holds or supports trunk or limbs, but provides less than half the effort. 2-Substantial/Maximal Assistance-helper does MORE THAN HALF the effort. [place] lifts or holds trunk or limbs and provides more than half the effort. 2-Vtjnxigop-lnmjos does ALL the effort. Patient does none of the effort to complete the activity. Or, the assistance of 2 or more helpers is required for the patient to complete the activity. If activity was not attempted, code reason: 7-Patient Refused. 9-Not Applicable-not attempted and the patient did not perform the activity before the current illness, exacerbation or injury. 10-Not Attempted due to Environmental Limitations-(lack of equipment, weather restraints, etc.). 88-Not Attempted due to Medical Conditions or Safety Concerns. Lying to Sitting/Side of Bed(Q: 3 Sit to Stand (QC): 3 Chair/Tgl-vh-Xzlnr Xfer(QC): 3 Weight Bearing Right Lower Extremity: Right Full Weight Bearing Left Lower Extremity: Left Full Weight Bearing Gait Training Distance: 175' Walk 10 feet (QC): 4 Walk 50 ft with 2 Turns(QC): 4 Walk 150 ft (QC): 4 Gait Assistive Device: FWW slow, steady gait sequence Assessment Patient requires VC's for body placement in FWW and FWW use. Patient tolerated treatment well and is up in recliner with needs met and family present. PT Jail Goals Fluid Power Mechanic Goals PT Jail Goals Time Frame: Apr 22, 2023 Roll Left & Right (QC): 6 Sit to Lying (QC): 6 Lying-Sitting on Side/Bed(QC): 6 Sit to Stand (QC): 6 Chair/Eft-ww-Vqeuw Xfer(QC): 4 Does the Patient Walk: No and Walking Goal IS indicated Walk 10 feet (QC): 4 Walk 50ft with 2 Turns (QC): 4 PT Plan Treatment/Plan Treatment Plan: Continue Plan of Care Treatment Plan: Bed Mobility, Concurrent Therapy, Education, Functional Activity Olman, Functional Strength, Gait, Safety, Therapeutic Exercise, Transfers Treatment Duration: Apr 22, 2023 Frequency: 6 times per week Estimated Hrs Per Day: .25 hour per day Patient and/or Family Agrees t: Yes Time Time In: 1042 Time Out: 1052 DATE: Apr 17, 2023 Total Billed Treatment Time: 10 Total Billed Treatment 1 visit GT 10 min CELENA OG PT Apr 17, 2023 11:51
[2023-04-17] MEDS: ENOXAPARIN 40 MG/0.4 ML SYRINGE SC SCH (11:54)
--- NOTE | 2023-04-17 11:54 | Occupational Therapy Eval ---
OT Evaluation-General/PLF Medical Diagnosis Admission Date Apr 15, 2023 at 11:46 Medical Diagnosis: generalized weakness Onset Date: Apr 15, 2023 Therapy Diagnosis Therapy Diagnosis: weakness Height/Weight Height (Feet): 5 Height (Inches): 10.00 Weight (Pounds): 247 Weight (Ounces): 4.0 Precautions Precautions/Isolations: Fall Prevention, Standard Precautions Weight Bear Status Weight Bearing Restriction: Full Weight Bearing Location Restriction: LE Bilateral Referral Physician: Trang Referral Reason: Evaluation/Treatment Medical History Pertinent Medical History: CAD, DM, HTN Current History 78 year old male with PMH HTN, T2DM, HLD, CAD, BPH, obesity, who presented with weakness. He reportedly fell several times at home. He is a poor historian. His and daughter are at the bedside and help with the history. He appears apathetic. He denies chest pain. He denies shortness of breath. He has no complaints. When asked what his name is, he responded "I'm nobody". He was either unable or unwilling to answer other orientation questions. He reportedly has dementia. I asked his about his code status and what we would do if his heart stopped beating and he interjected "nothing". Social History Home: Single Level Current Living Status: Spouse Entry Into Home: Stairs With Railing Steps Into Home: 4 ADL-Prior Level of Function SCALE: Activities may be completed with or without assistive devices. 6-Nbifizgbje-kforyyk completes the activity by him/herself with no assistance from a helper. 5-Set-up or Clean-up Assistance-helper sets up or cleans up; patient completes activity. [place] assists only prior to or following the activity. 4-Supervision or Touching Assistance-helper provides verbal cues and/or touching/steadying and/or contact guard assistance as patient completes activity. Assistance may be provided throughout the activity or intermittently. 3-Partial/Moderate Assistance-helper does LESS THAN HALF the effort. [place] lifts, holds or supports trunk or limbs, but provides less than half the effort. 2-Substantial/Maximal Assistance-helper does MORE THAN HALF the effort. [place] lifts or holds trunk or limbs and provides more than half the effort. 1-Lddevfpye-ntsrix does ALL the effort. Patient does none of the effort to complete the activity. Or, the assistance of 2 or more helpers is required for the patient to complete the activity. If activity was not attempted, code reason: 7-Patient Refused. 9-Not Applicable-not attempted and the patient did not perform the activity before the current illness, exacerbation or injury. 10-Not Attempted due to Environmental Limitations-(lack of equipment, weather restraints, etc.). 88-Not Attempted due to Medical Conditions or Safety Concerns. ADL PLOF Comments Family reports patient independent in ADL and then contradicts report throughout session Self Care: Independent Functional Cognition: Independent DME/Equipment: Shower [address] Self: No OT Current Status Subjective Agreeable to participate Mental Status/Objective Patient Orientation: Person Attachments: Mckenna Catheter, IV Current Glasses/Contacts: Yes Hand Dominance: Right Upper Extremity ROM BUE ROM WFLS, Upper Extremity Coordination impaired Upper Extremity Strength +3/5 BUE ADL-Treatment Eating (QC): 5 Oral Hygiene (QC): 7 (no teeth, no partials here) Shower/Bathe Self (QC): 7 Upper Body Dressing (QC): 4 Lower Body Dressing (QC): 3 On/Off Footwear (QC): 3 Toileting Hygiene (QC): 7 Very attentive family, performs most tasks for patient while OT attempting to assess Education OT Patient Education: Correct positioning, Instructions to caregiver, Modified ADL techniques, Progress toward Goal/Update tx plan, Purpose of tx/functional activities, Reviewed precautions, Rehab process, Safety issues, Transfer techniques Teaching Recipient: Patient, Family Teaching Methods: Discussion Response to Teaching: Reinforcement Needed OT Side Framer Goals Side Framer Goals Eating (QC): 5 Oral Hygiene (QC): 5 Toileting Hygiene (QC): 5 Shower/Bathe Self (QC): 5 Upper Body Dressing (QC): 5 Lower Body Dressing (QC): 5 On/Off Footwear (QC): 5 1=Demonstrate adherence to instructed precautions during ADL tasks. 2=Patient will verbalize/demonstrate understanding of assistive devices/modifications for ADL. 3=Patient will improve strength/tolerance for activity to enable patient to perform ADL's. OT Education/Plan Problem List/Assessment Assessment: Decreased Activ Tolerance, Decreased Safety Aware, Impaired Cognition, Impaired Coordination, Impaired Self-Care Skills Discharge Recommendations Plan/Recommendations: Continue POC Treatment Plan/Plan of Care Treatment,Training & Education: Yes Patient would benefit from OT for education, treatment and training to promote independence in ADL's, mobility, safety and/or upper extremity function for ADL's. Plan of Care: ADL Retraining, Concurrent Therapy, Functional Mobility, Group Exercise/Act as Ind, UE Funct Exercise/Act, UE Neuromus Re-Ed/Coord Treatment Duration: Apr 21, 2023 Frequency: 3 times per week (3-5 times per week) Estimated Hrs Per Day: .25 hour per day Agreement: Yes Rehab Potential: Fair Time Start Time: 09:44 Stop Time: 09:56 DATE: Apr 17, 2023 Total Time Billed (hr/min): 12 Billed Treatment Time EV 12 lisbetANTONETTE Tinajero OT Apr 17, 2023 11:54
--- NOTE | 2023-04-17 16:23 | Progress Note - Hospitalist ---
Subjective HPI/CC On Admission Date Seen by Provider: Apr 17, 2023 Sven Rosas is a 78 year old male with PMH HTN, T2DM, HLD, CAD, BPH, obesity, who presented with weakness. He reportedly fell several times at home. He is a poor historian. His and daughter are at the bedside and help with the history. He appears apathetic. He denies chest pain. He denies shortness of breath. He has no complaints. When asked what his name is, he responded "I'm nobody". He was either unable or unwilling to answer other orientation questions. He reportedly has dementia. I asked his about his code status and what we would do if his heart stopped beating and he interjected "nothing". She said that has always been his stance and all were in agreement to respect his wishes. He has food at the bedside but he does not want to eat. He did not get up with therapy. He is wanting to sleep. Subjective/Events-last exam Pt reports doing ok. No new complaints but still feels weak. Family at bedside. State he was at [facility] a few months and since then has had more weakness. Focused Exam Lactate Level 04/14/23 20:20: Lactic Acid Level 1.02 Objective Exam Vital Signs Vital Signs Date Time Temp Pulse Resp B/P (MAP) Pulse Ox O2 Delivery O2 Flow Rate FiO2 04/17/23 13:14 63 04/17/23 11:31 36.2 20 107/54 (71) 91 Room Air Capillary Refill : General Appearance: No Apparent Distress, Chronically ill, Obese Cardiovascular: Regular Rate, Rhythm, No Murmur Gastrointestinal: Normal Bowel Sounds, Soft Extremity: Other (left slightly weaken than right on lower extremity extension mostly just had some difficulty following directions) Neurologic/Psychiatric: Alert, Oriented x3 Results/Procedures Lab Patient resulted labs reviewed. Imaging: Reviewed Imaging Report Assessment/Plan Assessment and Plan Assess & Plan/Chief Complaint NSTEMI CAD CHF- known diagnosis POA Troponin mildly elevated Cardiology following Echo ordered, pending Aspirin [place] Debility PT/OT Attempted MRI but patient body habitus would not allow Apathy Depression Dementia with hallucinations Citalopram Ziprasidone Trazodone T2DM Levemir, decreased dose Sliding scale insulin HTN HLD BPH Obesity Continue home meds as able DVT prophylaxis: MIHAI Recinos MD Apr 17, 2023 16:23
[2023-04-17 16:29] VITALS: BP 160/74
[2023-04-17] MEDS: ACETAMINOPHEN 325 MG TABLET PO PRN (19:54)
[2023-04-17] MEDS: MELATONIN 3 MG TABLET PO PRN (19:54)
[2023-04-17] MEDS: traZODone 50 MG (DESYREL) TAB PO SCH (19:54)
[2023-04-17] MEDS: inSUlin DETERMIR 1 UNIT/0.01 ML (CHARGE PER UNIT) SQ SCH (19:57)
[2023-04-17 21:00] VITALS: BP 168/73
[2023-04-18] VITALS: BP 151/70
[2023-04-18 04:00] VITALS: BP 134/70
[2023-04-18 06:37] LABS: HEMATOCRIT 44 % (40-54); HEMOGLOBIN 14.2 g/dL (13.3-17.7); MEAN CORPUSCULAR HEMOGLOBIN 29 pg (25-34); MEAN CORPUSCULAR HGB CONC 32 g/dL (32-36); MEAN CORPUSCULAR VOLUME 91 fL (80-99); MEAN PLATELET VOLUME 10.6 fL (9.0-12.2); PLATELET COUNT 208 10^3/uL (130-400); WHITE BLOOD COUNT 6.6 10^3/uL (4.3-11.0)
[2023-04-18 06:47] LABS: POTASSIUM 3.8 MMOL/L (3.6-5.0)
[2023-04-18 06:48] LABS: CALCIUM 8.5 MG/DL (8.5-10.1)
[2023-04-18 06:52] LABS: CREATININE SERUM 1.01 MG/DL (0.60-1.30)
[2023-04-18] MEDS: inSUlin ASPART 1 UNIT/0.01 ML (PER UNIT) SC SCH ×4 (06:52→20:42)
[2023-04-18 07:34] VITALS: BP 183/73
[2023-04-18] MEDS: ZIPRASIDONE 20 MG CAPSULE PO SCH ×2 (07:38→16:57)
[2023-04-18] MEDS: SENNOSIDES 8.6 MG TABLET PO SCH ×2 (08:22→20:41)
[2023-04-18] MEDS: ASPIRIN 81 MG CHEWABLE TABLET PO SCH (08:22)
[2023-04-18] MEDS: ISOSORBIDE MONONITRATE 60 MG TABLET PO SCH (08:23)
[2023-04-18] MEDS: CITALOPRAM 20 MG TABLET PO SCH (08:23)
[2023-04-18] MEDS: FINASTERIDE 5 MG TABLET PO SCH (08:23)
[2023-04-18] MEDS: DOCUSATE SODIUM 100 MG CAPSULE PO SCH ×2 (08:23→20:41)
[2023-04-18] MEDS: EMPAGLIFLOZIN 10 MG TABLET PO SCH (08:23)
[2023-04-18] MEDS: meTOprolol TARTRATE (IR) 25 MG TABLET PO SCH ×2 (08:23→20:41)
[2023-04-18] MEDS: amLODIPine 10 MG TABLET PO SCH (08:23)
--- NOTE | 2023-04-18 08:39 | Cardiology Progress Note ---
Subjective Date Seen by Provider: Apr 18, 2023 Time Seen by Provider: 08:38 Subjective/Events-last exam Patient was seen at bedside, sitting comfortably in a chair. No new complain Objective-Cardiology Exam Last Set of Vital Signs Vital Signs 04/18/23 07:34 Temp 36.5 Pulse 70 Resp 18 B/P (MAP) 183/73 (109) Pulse Ox 91 O2 Delivery Room Air I&O Intake and Output 04/18/23 00:00 Intake Total 1225 ml Balance 1225 ml Intake Oral 1225 ml # Voids 6 General: Alert, Oriented X3, Cooperative HEENT: Atraumatic, PERRLA Lungs: Clear to Auscultation, Normal Air Movement Heart: Regular Rate, Normal S1, Normal S2 Abdomen: Soft Extremities: Other (+1 edema BLE) Skin: No Rashes, No Significant Lesion Neuro: Normal Speech Psych/Mental Status: Other (flat affect) Results Lab Laboratory Tests 04/18/23 06:08 A/P-Cardiology Admission Diagnosis Generalized debility/weakness CAD HTN DM Assessment/Plan Generalized debility/weakness, continue PT/OT Mildly elevated troponin, likely type II DE. EKG shows no acute ST changes, I will evaluate 2D Echo Mild BNP elevation, evaluate 2D echo Coronary artery disease, history of CABG, no chest pain. mildly positive troponin - likely type II DE. multiple intervention the past, cardiac catheterization in 2019 with severe in- stent restenosis in the mid LAD with successful balloon angioplasty using emerge 3 x 20 mm balloon with excellent results. Mild to moderate disease in the circumflex artery. 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 Mildly elevated left ventricular end-diastolic pressure of 20. Known occluded OKEEFE and 2 vein grafts Severe hypertension, better controlled, continue to monitor. Hyperlipidemia, continue to monitor. DM, management per medical services. Depression Dementia MIKE BONILLA MD Apr 18, 2023 08:38
--- NOTE | 2023-04-18 11:15 | Progress Note - Hospitalist ---
Subjective HPI/CC On Admission Date Seen by Provider: Apr 18, 2023 Sven Rosas is a 78 year old male with PMH HTN, T2DM, HLD, CAD, BPH, obesity, who presented with weakness. He reportedly fell several times at home. He is a poor historian. His and daughter are at the bedside and help with the history. He appears apathetic. He denies chest pain. He denies shortness of breath. He has no complaints. When asked what his name is, he responded "I'm n obody". He was either unable or unwilling to answer other orientation questions. He reportedly has dementia. I asked his about his code status and what we would do if his heart stopped beating and he interjected "nothing". She said that has always been his stance and all were in agreement to respect his wishes. He has food at the bedside but he does not want to eat. He did not get up with therapy. He is wanting to sleep. Subjective/Events-last exam Pt reports doing better today. No complaints. Mentation improved. Discussed how we were unable to get the MRI due to his weight but he states that he is only 230lbs. Standing weight confirmed 226. Objective Exam Vital Signs Vital Signs Date Time Temp Pulse Resp B/P (MAP) Pulse Ox O2 Delivery O2 Flow Rate FiO2 04/18/23 09:02 Room Air 04/18/23 07:34 36.5 70 18 183/73 (109) 91 Capillary Refill : General Appearance: No Apparent Distress, Chronically ill, Obese Respiratory: Lungs Clear Cardiovascular: Regular Rate, Rhythm, No Murmur Gastrointestinal: Normal Bowel Sounds, Soft Neurologic/Psychiatric: Alert, Oriented x3 Results/Procedures Lab Laboratory Tests 04/18/23 06:08 Patient resulted labs reviewed. Imaging: Reviewed Imaging Report Assessment/Plan Assessment and Plan Assess & Plan/Chief Complaint NSTEMI CAD CHF- known diagnosis POA Troponin mildly elevated Cardiology following Echo with EF of 55% and mild aortic stenosis Aspirin [place] Debility PT/OT Weight actually within threshold so will reattempt MRI Apathy Depression Dementia with hallucinations Citalopram Ziprasidone Trazodone T2DM Levemir Sliding scale insulin HTN HLD BPH Obesity Continue home meds as able DVT prophylaxis: MIHAI Recinos MD Apr 18, 2023 11:15
[2023-04-18 11:29] VITALS: BP 99/55
[2023-04-18] MEDS: ENOXAPARIN 40 MG/0.4 ML SYRINGE SC SCH (11:37)
--- NOTE | 2023-04-18 11:41 | Physical Therapy Daily Note ---
PT Daily Note-Current Subjective Patient agrees to therapy. Pain Section J - Health Conditions 1. Rarely or not at all 2. Occasionally 3. Frequently 4. Almost constantly 8. Unable to answer Pain Effect on Sleep: 2 Pain Interference with Therapy: 2 Pain Interference w/Day-to-Day: 2 Transfers SCALE: Activities may be completed with or without assistive devices. 1-Ubyagmbrop-yaawmww completes the activity by him/herself with no assistance from a helper. 5-Set-up or Clean-up Assistance-helper sets up or cleans up; patient completes activity. [place] assists only prior to or following the activity. 4-Supervision or Touching Assistance-helper provides verbal cues and/or touching/steadying and/or contact guard assistance as patient completes activity. Assistance may be provided throughout the activity or intermittently. 3-Partial/Moderate Assistance-helper does LESS THAN HALF the effort. [place] lifts, holds or supports trunk or limbs, but provides less than half the effort. 2-Substantial/Maximal Assistance-helper does MORE THAN HALF the effort. [place] lifts or holds trunk or limbs and provides more than half the effort. 5-Mttuevazc-pktilr does ALL the effort. Patient does none of the effort to complete the activity. Or, the assistance of 2 or more helpers is required for the patient to complete the activity. If activity was not attempted, code reason: 7-Patient Refused. 9-Not Applicable-not attempted and the patient did not perform the activity before the current illness, exacerbation or injury. 10-Not Attempted due to Environmental Limitations-(lack of equipment, weather restraints, etc.). 88-Not Attempted due to Medical Conditions or Safety Concerns. Sit to Stand (QC): 4 Chair/Kgg-bl-Mlisa Xfer(QC): 4 Weight Bearing Right Lower Extremity: Right Full Weight Bearing Left Lower Extremity: Left Full Weight Bearing Gait Training Distance: 275' Walk 10 feet (QC): 4 Walk 50 ft with 2 Turns(QC): 4 Walk 150 ft (QC): 4 Gait Assistive Device: FWW decreased step length/shuffle gait sequence/VC's for FWW use Assessment Patient up in recliner with chair alarm activated. Patient became slightly agitated during session and requires redirection to remain on task. PT Attending Pathologist Goals Care Home Goals PT Care Home Goals Time Frame: Apr 22, 2023 Roll Left & Right (QC): 6 Sit to Lying (QC): 6 Lying-Sitting on Side/Bed(QC): 6 Sit to Stand (QC): 6 Chair/Foz-dj-Xhvcx Xfer(QC): 4 Does the Patient Walk: No and Walking Goal IS indicated Walk 10 feet (QC): 4 Walk 50ft with 2 Turns (QC): 4 PT Plan Treatment/Plan Treatment Plan: Continue Plan of Care Treatment Plan: Bed Mobility, Concurrent Therapy, Education, Functional Activity [place], Functional Strength, Gait, Safety, Therapeutic Exercise, Transfers Treatment Duration: Apr 22, 2023 Frequency: 6 times per week Estimated Hrs Per Day: .25 hour per day Patient and/or Family Agrees t: Yes Time Time In: 1118 Time Out: 1128 DATE: Apr 18, 2023 Total Billed Treatment Time: 10 Total Billed Treatment 1 visit GT 10 min CELENA OG PT Apr 18, 2023 11:41
--- NOTE | 2023-04-18 13:04 | Occupational Ther Daily Note ---
OT Current Status-Daily Note Subjective Agreeable to participate. Voices the recliner is not comfortable Mental Status/Objective Patient Orientation: Person, Place ADL-Treatment Therapy Code Descriptions/Definitions Functional [place] Measure: 0=Not Assessed/NA 4=Minimal Assistance 1=Total Assistance 5=Supervision or Setup 2=Maximal Assistance 6=Modified [place] 3=Moderate Assistance 7=Complete IndependenceSCALE: Activities may be completed with or without assistive devices. 7-Ltyfgfgppg-ssqhfvs completes the activity by him/herself with no assistance from a helper. 5-Set-up or Clean-up Assistance-helper sets up or cleans up; patient completes activity. [place] assists only prior to or following the activity. 4-Supervision or Touching Assistance-helper provides verbal cues and/or touching/steadying and/or contact guard assistance as patient completes activity. Assistance may be provided throughout the activity or intermittently. 3-Partial/Moderate Assistance-helper does LESS THAN HALF the effort. [place] lifts, holds or supports trunk or limbs, but provides less than half the effort. 2-Substantial/Maximal Assistance-helper does MORE THAN HALF the effort. [place] lifts or holds trunk or limbs and provides more than half the effort. 4-Hfajrissz-oorbob does ALL the effort. Patient does none of the effort to complete the activity. Or, the assistance of 2 or more helpers is required for the patient to complete the activity. If activity was not attempted, code reason: 7-Patient Refused. 9-Not Applicable-not attempted and the patient did not perform the activity before the current illness, exacerbation or injury. 10-Not Attempted due to Environmental Limitations-(lack of equipment, weather restraints, etc.). 88-Not Attempted due to Medical Conditions or Safety Concerns. Other Treatment Safety awareness scenarios. Patient has poor safety awareness and lacks insight for consequences Education OT Patient Education: Progress toward Goal/Update tx plan, Purpose of tx/functional activities, Reviewed precautions, Rehab process, Safety issues, Transfer techniques Teaching Recipient: Patient Teaching Methods: Discussion Response to Teaching: Unable to Comprehend, Reinforcement Needed OT Intermediate Goals Intermediate Goals Eating (QC): 5 Oral Hygiene (QC): 5 Toileting Hygiene (QC): 5 Shower/Bathe Self (QC): 5 Upper Body Dressing (QC): 5 Lower Body Dressing (QC): 5 On/Off Footwear (QC): 5 1=Demonstrate adherence to instructed precautions during ADL tasks. 2=Patient will verbalize/demonstrate understanding of assistive devices/modifications for ADL. 3=Patient will improve strength/tolerance for activity to enable patient to perform ADL's. OT Education/Plan Problem List/Assessment Assessment: Decreased Activ Tolerance, Decreased Safety Aware, Impaired Cognition, Impaired Self-Care Skills Discharge Recommendations Plan/Recommendations: Continue POC Treatment Plan/Plan of Care Treatment,Training & Education: Yes Patient would benefit from OT for education, treatment and training to promote independence in ADL's, mobility, safety and/or upper extremity function for ADL's. Plan of Care: ADL Retraining, Concurrent Therapy, Functional Mobility, Group Exercise/Act as Ind, UE Funct Exercise/Act, UE Neuromus Re-Ed/Coord Treatment Duration: Apr 21, 2023 Frequency: 3 times per week (3-5 times per week) Estimated Hrs Per Day: .25 hour per day Agreement: Yes Rehab Potential: Fair Time Start Time: 11:18 Stop Time: 11:28 DATE: Apr 18, 2023 Total Time Billed (hr/min): 10 Billed Treatment Time FA 10 min ANTONETTE BIRD OT Apr 18, 2023 13:04
[2023-04-18 16:14] VITALS: BP 172/68
[2023-04-18 19:29] VITALS: BP 169/63
[2023-04-18] MEDS: traZODone 50 MG (DESYREL) TAB PO SCH (20:41)
[2023-04-18] MEDS: MELATONIN 3 MG TABLET PO PRN (20:41)
[2023-04-18] MEDS: inSUlin DETERMIR 1 UNIT/0.01 ML (CHARGE PER UNIT) SQ SCH (20:41)
[2023-04-19 00:11] VITALS: BP 158/72
[2023-04-19] MEDS: inSUlin ASPART 1 UNIT/0.01 ML (PER UNIT) SC SCH ×2 (06:14→12:02)
[2023-04-19 07:08] VITALS: BP 173/83
[2023-04-19] MEDS ORDERED: METO-333 PO (07:32)
[2023-04-19] MEDS ORDERED: ASPI81TA64 PO (07:32)
[2023-04-19] MEDS ORDERED: INSU100V52 SQ (07:32)
--- NOTE | 2023-04-19 07:34 | D/C HH Face to Face Order ---
D/C Face to Face Orders Instructions for Patient Via [facility], Patient Instructions/FollowUp: Please continue to take your medications as written. Please follow up with your primary care doctor to follow up this hospital stay. Physician to follow Patient: Vicky Manzanares Discharge Diet for Home: Cardiac Diet Patient Data-Allergies,Ht & Wt Patient Allergies: Coded Allergies: No Known Drug Allergies (Unverified , 04/02/12) Height (Feet): 5 Height (Inches): 10.00 Weight (Pounds): 247 Weight (Ounces): 4.0 Home Health Need/Face to Face Date of Face to Face: Apr 19, 2023 Clinical Findings: Generalized weakness and fatigue I have seen Pt [id number]: Yes Discharged To: Home Diagnosis/Conditions: Weakness, confusion Patient is Homebound due to: Florin fall risk due to instabilty Homebound Status Due to the above stated illness, injury or surgical procedure (medical condition or diagnosis) and associated clinical findings, the patient is homebound because of his/her inability to leave home except with aid of a supportive device and/or person AND leaving the home requires a considerable and taxing effort or is medically contraindicated. Pt req the following assistanc: Aid of another person, [place] Home Health Nursing Orders Home Health Services Order: Nursing Services, Laundry Supervisor-Evaluate & Treat, Physical Therapy-Evaluate & Treat Home Health Infusion Therapy Line Start Date: Apr 14, 2023 Therapy Orders Therapy Orders: OT (must have SN or PT order), Physical Therapy Therapy Specific Orders: Eval assistive deivces, Teach enviro modifications/safety, Gait training, Increase strength/endurance Certify Stmt I certify that this patient is under my care and that I, a nurse practitioner or a physician; a ssn/ssbn assistant navigator working with me, had a face to face encounter that - meets the physician face to face encounter requirements with this patient as dated. MIHAI NORTH MD Apr 19, 2023 07:34
[2023-04-19] MEDS: ASPIRIN 81 MG CHEWABLE TABLET PO SCH (09:00)
[2023-04-19] MEDS: CITALOPRAM 20 MG TABLET PO SCH (09:00)
[2023-04-19] MEDS: SENNOSIDES 8.6 MG TABLET PO SCH (09:01)
[2023-04-19] MEDS: DOCUSATE SODIUM 100 MG CAPSULE PO SCH (09:01)
[2023-04-19] MEDS: FINASTERIDE 5 MG TABLET PO SCH (09:01)
[2023-04-19] MEDS: EMPAGLIFLOZIN 10 MG TABLET PO SCH (09:01)
[2023-04-19] MEDS: ZIPRASIDONE 20 MG CAPSULE PO SCH (09:01)
[2023-04-19] MEDS: amLODIPine 10 MG TABLET PO SCH (09:01)
[2023-04-19] MEDS: meTOprolol TARTRATE (IR) 25 MG TABLET PO SCH (09:01)
[2023-04-19] MEDS: ISOSORBIDE MONONITRATE 60 MG TABLET PO SCH (09:01)
--- NOTE | 2023-04-19 09:11 | Discharge Summary ---
Diagnosis/Chief Complaint Date of Admission Apr 15, 2023 at 11:46 Date of Discharge Discharge Date: Apr 19, 2023 Admission Diagnosis NSTEMI Primary Care No,Local Physician Discharge Diagnosis (1) NSTEMI (non-ST elevation myocardial infarction) Status: Acute (2) CAD (coronary artery disease) Status: Chronic (3) HLD (hyperlipidemia) Status: Chronic (4) T2DM (type 2 diabetes mellitus) Status: Chronic (5) Hallucinations Status: Chronic (6) Apathetic behavior due to dementia Status: Acute (7) Multiple falls Status: Acute (8) HTN (hypertension) Status: Chronic (9) Generalized weakness Status: Acute (10) Obesity Status: Chronic (11) Dementia Status: Chronic Discharge Summary Discharge Physical Exam Allergies: Coded Allergies: No Known Drug Allergies (Unverified , 04/02/12) Vitals & I&Os Vital Signs Date Time Temp Pulse Resp B/P (MAP) Pulse Ox O2 Delivery O2 Flow Rate FiO2 04/19/23 07:08 36.1 57 16 173/83 (113) 89 Room Air Hospital Course Labs (last 24 hrs) Laboratory Tests 04/18/23 11:31: Glucometer 181H 04/18/23 16:17: Glucometer 156H 04/18/23 19:32: Glucometer 233H 04/19/23 06:10: Glucometer 139H Microbiology 04/14/23 Blood Culture - Preliminary, Resulted Patient resulted labs reviewed. Pending Labs Laboratory Tests 04/19/23 06:10: Glucometer 139 Imaging: Reviewed Imaging Report Discharge Home Medications: Active Scripts Active Children's Aspirin (Aspirin) 81 Mg Tab.chew 81 Mg PO DAILY Insulin Glargine (Insulin Glargine,Hum.rec.anlog) 100 Unit/Ml Vial 15 Units SQ 1800 30 Days Metoprolol Tartrate 25 Mg Tablet 25 Mg PO BID Reported Amlodipine Besylate 5 Mg Tablet 5 Mg PO DAILY [Prostagenix] 3 Ea PO DAILY Flax Seed Oil 1,300 mg Softgel (Flaxseed/Omega3,6,9/Fatty Acid) 1,300-670MG Capsule 1 Each PO BID Lutein-Zeaxanthin 20-4 mg Sfgl (Lutein/Zeaxanthin) 20 Mg-4 Mg Capsule 1 Each PO DAILY Vitamin D3 (Cholecalciferol (Vitamin D3)) 125 Mcg (5000 Unit) Tablet 125 Mcg PO DAILY Trazodone HCl 50 Mg Tablet 25 Mg PO BID TAKES 1/2 OF (50MG) TAB Melatonin 3 Mg Tablet 3 Mg PO HS Jardiance (Empagliflozin) 25 Mg Tablet 25 Mg PO DAILY Alogliptin (Alogliptin Benzoate) 25 Mg Tablet 25 Mg PO DAILY Geodon (Ziprasidone HCl) 20 Mg Capsule 20 Mg BID Isosorbide Mononitrate ER (Isosorbide Mononitrate) 60 Mg Tab 1 Tab DAILY Desipramine HCl 50 Mg Tablet 10 Mg PO HS Multivitamins (Multivitamin) 1 Each Tablet 1 Each PO DAILY Finasteride 5 Mg Tablet 5 Mg PO DAILY Lisinopril 40 Mg Tablet 40 Mg PO DAILY Cinnamon (Cinnamon Bark) 500 Mg Capsule 2 Cap PO DAILY Folic Acid 0.4 Mg Tablet 0.8 Mg PO DAILY TAKES 2 (0.4MG) TABS Citalopram HBr (Citalopram Hydrobromide) 20 Mg Tablet 10 Mg PO HS TAKES 1/2 OF (20MG) TAB Instructions to patient/family Please see electronic discharge instructions given to patient. 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
--- NOTE | 2023-04-19 09:21 | Cardiology Progress Note ---
Subjective Date Seen by Provider: Apr 19, 2023 Time Seen by Provider: 08:15 Subjective/Events-last exam Patient is sitting in chair, no new complaints. Denies any chest pain Objective-Cardiology Exam Last Set of Vital Signs Vital Signs 04/19/23 14:30 Temp 36.4 Pulse 70 Resp 16 B/P (MAP) 130/58 Pulse Ox 91 O2 Delivery Room Air I&O Intake and Output 04/18/23 23:59 Intake Total 1600 ml Balance 1600 ml Intake Oral 1600 ml # Voids 9 # Bowel Movements 1 General: Alert, Oriented X3, Cooperative HEENT: Atraumatic, PERRLA Lungs: Clear to Auscultation, Normal Air Movement Heart: Regular Rate, Normal S1, Normal S2 Abdomen: Soft Extremities: Other (+1 edema BLE) Skin: No Rashes, No Significant Lesion Neuro: Normal Speech Psych/Mental Status: Other (flat affect) A/P-Cardiology Admission Diagnosis Generalized debility/weakness CAD HTN DM Assessment/Plan Generalized debility/weakness, continue PT/OT Mildly elevated troponin, likely type II NM. EKG shows no acute ST changes 2D Echo done 04/17/23 showing normal LV, EF 55-65%, mild Aortic stenosis, PA 30- 35mmHg. Coronary artery disease, history of CABG, no chest pain. mildly positive troponin - likely type II NM. multiple intervention the past, cardiac catheterization in 2019 with severe in- stent restenosis in the mid LAD with successful balloon angioplasty using emerge 3 x 20 mm balloon with excellent results. Mild to moderate disease in the circumflex artery. 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 Mildly elevated left ventricular end-diastolic pressure of 20. Known occluded OKEEFE and 2 vein grafts Severe hypertension, better controlled, continue to monitor. Hyperlipidemia, continue to monitor. DM, management per medical services. Depression Dementia Supervisory-Addendum Brief Supervisory Addendum Participated in pt care: history, MDM, physical Personally performed: exam, history, MDM Care discussed with: CORA Results interpretation: Verified all documentation Notes: Patient was not seen by myself Toni did evaluation. TONI MUNOZ PA-C Apr 19, 2023 09:21 MIKE BONILLA MD Apr 19, 2023 15:59
--- NOTE | 2023-04-19 10:46 | Occupational Ther Daily Note ---
OT Current Status-Daily Note Subjective Patient is anxious and sets off chair alarm multiple times, OT intervention knowing patient DC is pending. OT provides intervention for calming w/ ambulation and ADLS Mental Status/Objective Patient Orientation: Person ADL-Treatment Patient spouse assist w/ LB dressing as she would at home. VCs for safety w/ FWW and transfers. OT gives tactile, visual and auditory direction for navigation in halls. Patient returns to recliner following short walk Therapy Code Descriptions/Definitions Functional [place] Measure: 0=Not Assessed/NA 4=Minimal Assistance 1=Total Assistance 5=Supervision or Setup 2=Maximal Assistance 6=Modified [place] 3=Moderate Assistance 7=Complete IndependenceSCALE: Activities may be completed with or without assistive devices. 1-Txzylvjozm-xprjelw completes the activity by him/herself with no assistance from a helper. 5-Set-up or Clean-up Assistance-helper sets up or cleans up; patient completes activity. [place] assists only prior to or following the activity. 4-Supervision or Touching Assistance-helper provides verbal cues and/or touching/steadying and/or contact guard assistance as patient completes activity. Assistance may be provided throughout the activity or intermittently. 3-Partial/Moderate Assistance-helper does LESS THAN HALF the effort. [place] lifts, holds or supports trunk or limbs, but provides less than half the effort. 2-Substantial/Maximal Assistance-helper does MORE THAN HALF the effort. [place] lifts or holds trunk or limbs and provides more than half the effort. 5-Nvmlvqksm-plpwmm does ALL the effort. Patient does none of the effort to complete the activity. Or, the assistance of 2 or more helpers is required for the patient to complete the activity. If activity was not attempted, code reason: 7-Patient Refused. 9-Not Applicable-not attempted and the patient did not perform the activity before the current illness, exacerbation or injury. 10-Not Attempted due to Environmental Limitations-(lack of equipment, weather restraints, etc.). 88-Not Attempted due to Medical Conditions or Safety Concerns. Eating (QC): 5 Oral Hygiene (QC): 5 Lower Body Dressing (QC): 3 Education OT Patient Education: Correct positioning, Exercise program, Instructions to caregiver, Modified ADL techniques, Progress toward Goal/Update tx plan, Purpose of tx/functional activities, Reviewed precautions, Rehab process, Safety issues, Transfer techniques, Use of adapted equipment Teaching Recipient: Patient, Family Teaching Methods: Discussion Response to Teaching: Reinforcement Needed OT Senior Living Goals Senior Pastor Goals Eating (QC): 5 Oral Hygiene (QC): 5 Toileting Hygiene (QC): 5 Shower/Bathe Self (QC): 5 Upper Body Dressing (QC): 5 Lower Body Dressing (QC): 5 On/Off Footwear (QC): 5 1=Demonstrate adherence to instructed precautions during ADL tasks. 2=Patient will verbalize/demonstrate understanding of assistive devices/modifications for ADL. 3=Patient will improve strength/tolerance for activity to enable patient to perform ADL's. OT Education/Plan Problem List/Assessment Assessment: Decreased Activ Tolerance, Decreased Safety Aware, Impaired Self- Care Skills Discharge Recommendations Plan/Recommendations: Continue POC Treatment Plan/Plan of Care Patient would benefit from OT for education, treatment and training to promote independence in ADL's, mobility, safety and/or upper extremity function for ADL's. Plan of Care: ADL Retraining, Concurrent Therapy, Functional Mobility, Group Exercise/Act as Ind, UE Funct Exercise/Act, UE Neuromus Re-Ed/Coord Treatment Duration: Apr 21, 2023 Frequency: 3 times per week (3-5 times per week) Estimated Hrs Per Day: .25 hour per day Agreement: Yes Rehab Potential: Fair Time Start Time: 09:40 Stop Time: 10:00 DATE: Apr 19, 2023 Total Time Billed (hr/min): 20 Billed Treatment Time ADL 20 min ANTONETTE BIRD OT Apr 19, 2023 10:46
[2023-04-19 11:17] VITALS: BP 130/58
[2023-04-19 14:30] VITALS: BP 130/58
--- NOTE | 2023-04-21 10:28 | Physician Query Clarification ---
PQ-Conflicting Diagnosis Admission/Discharge Admission Date: Apr 15, 2023 at 11:46 Discharge Date: Apr 19, 2023 at 14:30 Dr. Mayes, The medical record reflects the following clinical scenario: History/Risk Factors: weakness, dementia, NM, CAD Clinical Findings: EKG - no acute ST changes 2D echo - normal LV, EF 55-65%, mild aortic stenosis, PA 30-35 mmHg Treatment: Aspirin, cardiac meds Question: Do you agree with the impression of the NM type 2 per consulting physicians Ji and Margaret? Please document a response in Progress Note or Discharge Summary. 1. Yes 2. No 3. Other, with explanation of clinical findings 4. Clinically undetermined, no explanation for clinical findings. PHYSICIAN RESPONSE Do you agree w/Consulting Dx?: Yes In responding to this query, please exercise your independent professional judgment. The purpose of this communication is to more accurately reflect the complexity of your patients condition. The fact that a question is asked does not imply that any particular answer is desired or expected. Thank you for your timely response to this clarification. Requestors name: Thu THIS PHYSICIAN QUERY FORM IS A PERMANENT PART OF THE MEDICAL RECORD THU CÁRDENAS Apr 21, 2023 10:28 MIHAI MAYES MD Apr 21, 2023 20:16
--- NOTE | 2023-04-21 10:35 | Physician Query Clarification ---
PQ-Further Specificity Admission/Discharge Admission Date: Apr 15, 2023 at 11:46 Discharge Date: Apr 19, 2023 at 14:30 Dr. Mayes, The medical record reflects the following clinical scenario: History/Risk Factors: NSTEMI, weakness, dementia, CAD Clinical Findings: Weakness Treatment: PT/OT Question: Can you further specify the underlying cause of the weakness per the clinical indicators above? Please document a response in the Progress Notes or Discharge Summary. 1. CAD 2. NSTEMI 3. Dementia 4 Weakness underlying cause not determined 5. Other, with explanation of the clinical findings. 6. Clinically undetermined, no explanation for the clinical findings. PHYSICIAN RESPONSE Can you specify per above: Other, explanation/clinical finding Explanation/Clinical Findings likely multifactorial with CHF and Type II [place] while being on multiple psychiatric medications In responding to this query, please exercise your independent professional judgment. The purpose of this communication is to more accurately reflect the complexity of your patients condition. The fact that a question is asked does not imply that any particular answer is desired or expected. Thank you for your timely response to this clarification. Requestors name: Luis THIS PHYSICIAN QUERY FORM IS A PERMANENT PART OF THE MEDICAL RECORD LUIS CÁRDENAS Apr 21, 2023 10:35 MIHAI MAYES MD Apr 21, 2023 20:18
== END 2023-04-19 14:30 | disposition home health service (06) | DRG 281 ==
LOC: EDUNIT# 20:15 → ER 20:17 → 4TH 04-15 01:13 → OBSVTOIN 04-15 11:46 → 4TH 04-19 02:50
PROVIDERS: ADMIT Internal Medicine; ATTEND Internal Medicine
DX: I11.0 Hypertensive heart disease with heart failure (principal); I21.A1 Myocardial infarction type 2; I50.9 Heart failure, unspecified; F03.92 Unspecified dementia, unspecified severity, with psychotic disturbance; I25.810 Atherosclerosis of coronary artery bypass graft(s) without angina pectoris; F03.93 Unspecified dementia, unspecified severity, with mood disturbance; R53.1 Weakness; I25.10 Atherosclerotic heart disease of native coronary artery without angina pectoris; Z66 Do not resuscitate; Z91.81 History of falling; E11.9 Type 2 diabetes mellitus without complications; Z79.4 Long term (current) use of insulin; Z95.5 Presence of coronary angioplasty implant and graft; Z95.1 Presence of aortocoronary bypass graft; E78.5 Hyperlipidemia, unspecified; N40.0 Benign prostatic hyperplasia without lower urinary tract symptoms; E66.9 Obesity, unspecified; Z68.36 Body mass index [BMI] 36.0-36.9, adult; F32.A Depression, unspecified; I35.0 Nonrheumatic aortic (valve) stenosis; Z79.899 Other long term (current) drug therapy; Z79.82 Long term (current) use of aspirin; Z79.02 Long term (current) use of antithrombotics/antiplatelets
CPT/HCPCS: 36415; 70450; 71045; 71260; 72125; 72128; 72131; 72170; 74177; 80048; 80053; 80061; 80320; 81000; 82140; 82550; 82553; 82947; 83605; 83690; 83735; 83880; 84443; 84484; 85025; 85027; 85610; 85730; 87040; 87636; 93005; 93041; 93306; 96361; 96374; 96375; G0378